=== PATIENT | female | born 1940 | race Caucasian/White ===

== ENCOUNTER 2016-12-05 14:15 | Inpatient (IN) | payer MEDICARE, MEDICAID ==
[~2016-12-05] VITALS: Ht 167.6 cm; Wt 75.3 kg
[~2016-12-05 14:15] MED LIST: AMBIEN10 MG PO; AMBIEN5 MG ORAL; ASPIRIN325 MG PO; ASPIRIN81 MG ORAL; CLONIDINE0.1 MG ORAL; COREG6.25 MG ORAL; DURAGESIC1 E1 TD; FLAGYL500 MG PO; GABAPENTIN300 MG PO; GABAPENTIN600 MG PO; IBUPROFEN800 MG PO; IMODIUM2 MG ORAL; LEVAQUIN500 MG ORAL; LIDODERM700 M1 TP; LIPITOR80 MG ORAL; MACRODANTIN25 MG PO; MOTRIN400 MG PO; NORVASC5 MG ORAL; TRAMADOL HCL50 MG PO; TRIAMTERENE-HC1 EAC7 PO
[2016-12-05 14:24] VITALS: BP 89/57
--- NOTE | 2016-12-05 14:28 | Emergency Room Report ---
History of Present Illness General Chief Complaint: Multiple Trauma/Fall Source: Medical Record, EMS Present Illness HPI Patient is s a 76-year-old female who presented after increased bilateral knee pain as well as low back pain after a fall. Patient probably had a prior history of chronic pain. 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 Patient was having difficulty ambulating after her fall. Patient states she normally takes [place] for pain. She intermittently takes ibuprofen. She denied any numbness or weakness. Allergies: Coded Allergies: MORPHINE (Verified Allergy, Severe, Hives, 10/12/12) HIVES Patient History Past Medical History: see triage record, AFib Past Surgical History: pacemaker Last Menstrual Period: UNK Reviewed Nursing Documentation: PMH: Agreed, PSxH: Agreed Nursing Documentation-PMH Past Medical History: No History, Except For Hx Cardiac Problems: Yes - afib Hx Hypertension: Yes Hx Asthma: Yes Hx COPD: Yes Hx Cancer: No Hx Gastrointestinal Problems: No History Of Psychiatric Problem: Yes Hx Neurological Problems: Yes - h/o of aloc in 2010 Hx Dementia: Yes Hx Alzheimer's Disease: Yes Review of Systems All Other Systems: negative except mentioned in HPI Physical Exam Vital Signs Date Time Temp Pulse Resp B/P Pulse Ox O2 Delivery O2 Flow Rate FiO2 12/05/16 14:13 97.7 95 14 77/45 95 Room Air Sp02 EP Interpretation: reviewed, normal General Appearance: normal inspection, well appearing, no apparent distress, alert, GCS 15, obese, Chronically Ill Head: atraumatic ENT: normal ENT inspection, hearing grossly normal, normal voice Neck: normal inspection, full range of motion, supple, no bony tend Respiratory: normal inspection, lungs clear, normal breath sounds, no respiratory distress, no retraction, no wheezing Cardiovascular #1: regular rate, rhythm, no edema Gastrointestinal: normal inspection, normal bowel sounds, non tender, soft, no guarding, no hernia Genitourinary: no CVA tenderness Musculoskeletal: normal inspection, back normal, decreased range of motion Neurologic: normal inspection, alert, oriented x3, responsive, speech normal Psychiatric: normal inspection, judgement/insight normal, mood/affect normal Skin: normal inspection, normal color, no rash Medical Decision Making Diagnostic Impression: Primary Impression: Recurrent falls Additional Impressions: Atrial fibrillation with RVR Low back pain ER Course Patient presented after a fall. Differential diagnosis included was not limited to neck fracture, CVA, close head injury, syncopal episode, basilar ischemia Labs Test 12/05/16 16:58 12/05/16 17:00 White Blood Count 11.5 K/UL (4.8-10.8) Red Blood Count 6.10 M/UL (4.20-5.40) Hemoglobin 14.8 G/DL (12.0-16.0) Hematocrit 47.9 % (37.0-47.0) Mean Corpuscular Volume 79 FL (80-99) Mean Corpuscular Hemoglobin 24.3 PG (27.0-31.0) Mean Corpuscular Hemoglobin Concent 30.9 G/DL (32.0-36.0) Red Cell Distribution Width 14.6 % (11.6-14.8) Platelet Count 75 K/UL (150-450) Mean Platelet Volume 10.8 FL (6.5-10.1) Neutrophils (%) (Auto) % (45.0-75.0) Lymphocytes (%) (Auto) % (20.0-45.0) Monocytes (%) (Auto) % (1.0-10.0) Eosinophils (%) (Auto) % (0.0-3.0) Basophils (%) (Auto) % (0.0-2.0) Differential Total Cells Counted 100 Neutrophils % (Manual) 77 % (45-75) Lymphocytes % (Manual) 12 % (20-45) Monocytes % (Manual) 5 % (1-10) Eosinophils % (Manual) 3 % (0-3) Basophils % (Manual) 1 % (0-2) Band Neutrophils 2 % (0-8) Platelet Estimate Decreased Platelet Morphology Clumped Platelets 1+ Anisocytosis 1+ Prothrombin Time 10.2 SEC (9.30-11.50) Prothromb Time International Ratio 1.0 (0.9-1.1) Activated Partial Thromboplast Time 31 SEC (23-33) Sodium Level 133 mEQ/L (135-145) Potassium Level 5.7 mEQ/L (3.4-4.9) Chloride Level 94 mEQ/L (98-107) Carbon Dioxide Level 27 mEQ/L (20-30) Anion Gap 12 (5-15) Blood Urea Nitrogen 33 mg/dL (7-23) Creatinine 0.9 mg/dL (0.5-0.9) Estimat Glomerular Filtration Rate mL/min (>60) Glucose Level 100 mg/dL (74-106) Lactic Acid Level 1.00 mmol/L (0.66-2.22) Calcium Level 10.0 mg/dL (8.6-10.2) Total Bilirubin 0.5 mg/dL (0.0-1.2) Aspartate Amino Transf (AST/SGOT) 28 U/L (5-40) Alanine Aminotransferase (ALT/SGPT) 18 U/L (3-33) Alkaline Phosphatase 99 U/L (35-104) Total Creatine Kinase 427 U/L (26-140) Creatine Kinase MB 4.5 ng/mL (< 3.8) Creatine Kinase MB Relative Index 1.0 Troponin I < 0.30 ng/mL (<=0.30) Pro-B-Type Natriuretic Peptide 2034 pg/mL (0-450) Total Protein 8.5 g/dL (6.6-8.7) Albumin 4.5 g/dL (3.5-5.2) Globulin 4.0 g/dL Albumin/Globulin Ratio 1.1 (1.0-2.7) Urine Color Pale yellow Urine Appearance Clear Urine pH 8 (4.5-8.0) Urine Specific [place] 1.010 (1.005-1.035) Urine Protein Negative (NEGATIVE) Urine Glucose (UA) Negative (NEGATIVE) Urine Ketones Negative (NEGATIVE) Urine Occult Blood Negative (NEGATIVE) Urine Nitrite Negative (NEGATIVE) Urine Bilirubin Negative (NEGATIVE) Urine Urobilinogen Normal MG/DL (0.0-1.0) Urine Leukocyte Esterase 1+ (NEGATIVE) Urine RBC 0-2 /HPF (0 - 2) Urine WBC 2-4 /HPF (0 - 2) Urine Squamous Epithelial Cells Few /LPF (NONE/OCC) Urine Bacteria Few /HPF (NONE) EKG Diagnostic Results Rate: tachycardiac Rhythm: other - afib ST Segments: no acute changes Last Vital Signs Date Time Temp Pulse Resp B/P Pulse Ox O2 Delivery O2 Flow Rate FiO2 12/05/16 14:24 97.7 128 19 89/57 97 Room Air Status: unchanged Disposition: ADMITTED INPATIENT Condition: Serious Yousuf Brandt Dec 05, 2016 14:28
[2016-12-05] MEDS ORDERED: Norco 5mg/325mg tab ORAL ONE ×2 (14:30→17:30)
[2016-12-05] MEDS ORDERED: DICLOFENAC SODI25 MG ORAL (15:46)
[2016-12-05] MEDS ORDERED: ZANAFLEX4 MG ORAL (15:46)
[2016-12-05] MEDS ORDERED: ALBUTEROL SULF8.5 GM INH (15:46)
[2016-12-05] MEDS ORDERED: XANAX0.25 MG ORAL (15:46)
[2016-12-05] MEDS ORDERED: Digoxin 0.5mg/2ml Inj IVP ONE (16:30)
[2016-12-05 16:38] VITALS: BP 104/55
[2016-12-05 17:18] LABS: MEAN CORPUSCULAR HEMOGLOBIN 24.3 PG (27.0-31.0); MEAN CORPUSCULAR HGB CONC 30.9 G/DL (32.0-36.0); MEAN CORPUSCULAR VOLUME 79 FL (80-99); MEAN PLATELET VOLUME 10.8 FL (6.5-10.1); PLATELET COUNT 75 K/UL (150-450); RED CELL DISTRIBUTION WIDTH 14.6 % (11.6-14.8); WHITE BLOOD COUNT 11.5 K/UL (4.8-10.8)
[2016-12-05 17:20] LABS: APPEARANCE,URINE CLEAR; KETONES,URINE NEGATIVE (NEGATIVE); LEUKOCYTE ESTERASE ,URINE 1+ (NEGATIVE); NITRITE,URINE NEGATIVE (NEGATIVE); PH,URINE 8 (4.5-8.0); PROTEIN,URINE NEGATIVE (NEGATIVE); UROBILINOGEN,URINE NORMAL MG/DL (0.0-1.0)
[2016-12-05 17:25] LABS: PROTHROMBIN TIME 10.2 SEC (9.30-11.50)
[2016-12-05] MEDS ORDERED: Diltiazem 25mg/5ml IV ONE (17:30)
[2016-12-05 17:36] LABS: BACTERIA,URINE FEW /HPF; RBC,URINE 0-2 /HPF (0 - 2); SQUAMOUS EPITHELIAL CELL,UR FEW /LPF (NONE/OCC)
[2016-12-05 17:41] LABS: TROPONIN I < 0.30 ng/mL (<=0.30)
[2016-12-05 17:43] LABS: ALANINE AMINOTRANSFERASE 18 U/L (3-33); ALBUMIN/GLOBULIN RATIO 1.1 (1.0-2.7); ANION GAP 12 (5-15); ASPARTATE AMINO TRANSFERASE 28 U/L (5-40); CARBON DIOXIDE 27 mEQ/L (20-30); CHLORIDE 94 mEQ/L (98-107); CREATININE 0.9 mg/dL (0.5-0.9); HEMOLYSIS 4; POTASSIUM 5.7 mEQ/L (3.4-4.9); SODIUM 133 mEQ/L (135-145); TOTAL PROTEIN 8.5 g/dL (6.6-8.7)
[2016-12-05 18:04] LABS: CKMB 4.5 ng/mL (< 3.8)
[2016-12-05 18:07] LABS: ANISOCYTOSIS 1+; BAND NEUTROPHILS % (MANUAL) 2 % (0-8); BASOPHILS % (MANUAL) 1 % (0-2); EOSINOPHILS % (MANUAL) 3 % (0-3); LYMPHOCYTES % (MANUAL) 12 % (20-45); NEUTROPHILS % (MANUAL) 77 % (45-75); TOTAL CELLS COUNTED 100
[2016-12-05 18:08] LABS: PLATELET CLUMPS 1+; PLATELET ESTIMATE DECREASED
[2016-12-05] MEDS ORDERED: Sodium Polystyrene Sulfonate 15gm Powder ORAL ONE (18:15)
[2016-12-05 18:45] VITALS: BP 139/88
[2016-12-05 19:00] VITALS: BP 139/88
[2016-12-05 20:30] VITALS: BP 139/88
[2016-12-05] MEDS ORDERED: Nitroglycerin Subl 0.4mg tab (Bottle Of 25) SL PRN (20:45)
[2016-12-05] MEDS ORDERED: LORazepam Inj 2mg/ml 1ml IV PRN (20:45)
[2016-12-05] MEDS ORDERED: Miralax 17gm pkt ORAL PRN (20:45)
[2016-12-05] MEDS ORDERED: DuoNeb 0.5-3(2.5)mg/3ml neb HHN PRN (20:45)
[2016-12-05] MEDS ORDERED: Mylanta II UD 30ml ORAL PRN (20:45)
[2016-12-05] MEDS ORDERED: Carvedilol 6.25mg Tab ORAL SCH (21:00)
[2016-12-05] MEDS ORDERED: Heparin 5000 units/ml inj SUBQ SCH (21:00)
[2016-12-05 21:11] VITALS: BP 84/46
[2016-12-06] VITALS (7 sets, daily range): BP systolic 73–119; BP diastolic 42–58
[2016-12-06 05:09] LABS: EOSINOPHILS % (AUTO) 4.2 % (0.0-3.0); LYMPHOCYTES % (AUTO) 16.7 % (20.0-45.0); MEAN CORPUSCULAR HEMOGLOBIN 24.8 PG (27.0-31.0); MEAN CORPUSCULAR HGB CONC 31.5 G/DL (32.0-36.0); MEAN CORPUSCULAR VOLUME 79 FL (80-99); MEAN PLATELET VOLUME 14.2 FL (6.5-10.1); MONOCYTES % (AUTO) 7.5 % (1.0-10.0); NEUTROPHILS % (AUTO) 69.6 % (45.0-75.0); PLATELET COUNT 105 K/UL (150-450); RED BLOOD COUNT 5.19 M/UL (4.20-5.40); RED CELL DISTRIBUTION WIDTH 14.6 % (11.6-14.8); WHITE BLOOD COUNT 8.6 K/UL (4.8-10.8)
[2016-12-06 05:16] LABS: PROTHROMBIN TIME 10.5 SEC (9.30-11.50)
[2016-12-06 05:26] LABS: ALANINE AMINOTRANSFERASE 13 U/L (3-33); ANION GAP 11 (5-15); ASPARTATE AMINO TRANSFERASE 19 U/L (5-40); CALCIUM 8.9 mg/dL (8.6-10.2); CARBON DIOXIDE 25 mEQ/L (20-30); CHLORIDE 98 mEQ/L (98-107); CHOLESTEROL 141 mg/dL (< 200); CHOLESTEROL/HDL RATIO 5.6 (3.3-4.4); CREATININE 0.6 mg/dL (0.5-0.9); HEMOLYSIS 4; LDL CHOLESTEROL (CALC.) 91 mg/dL (60-99); POTASSIUM 5.1 mEQ/L (3.4-4.9); SODIUM 134 mEQ/L (135-145); TOTAL PROTEIN 6.6 g/dL (6.6-8.7)
[2016-12-06] MEDS: Carvedilol 6.25mg Tab ORAL SCH ×2 (09:00→22:29)
[2016-12-06] MEDS: Aspirin Baby 81mg ORAL SCH (10:04)
--- NOTE | 2016-12-06 12:05 | Diagnostic Imaging Report ---
Indications: Left knee pain Technique: 3 views left knee. Findings: Comparison: None Suprapatellar bursa is distended and increased attenuation. No fracture, dislocation, joint space widening , lytic destruction, periosteal reaction , surrounding soft tissue swelling/foreign body/gas, or other acute changes are identified. Patellofemoral and knee joint space is narrowed with marginal osteophyte formation. Small osseous densities adjacent to medial femoral condyle/epicondyle IMPRESSION: Suprapatellar effusion, nonspecific. If in the setting of trauma, internal derangement cannot be excluded. Also, it is uncertain whether this image was shot as crosstable lateral. If not, likely hemarthrosis in the setting of radiographically occult acute fracture cannot be excluded. No other evidence of acute abnormality Degenerative spondylosis Derrell-Stieda lesion.
--- NOTE | 2016-12-06 12:07 | Diagnostic Imaging Report ---
Indications: Right knee pain Technique: 3 views right knee. Findings: Comparison: None No fracture, dislocation, joint space widening or effusion, lytic destruction, periosteal reaction , surrounding soft tissue swelling/foreign body/gas, or other acute changes are identified. Patellofemoral and knee joint space is narrowed with marginal osteophyte formation. IMPRESSION: No evidence of acute abnormality Degenerative arthropathy.
--- NOTE | 2016-12-06 12:07 | Diagnostic Imaging Report ---
Indications: Abdominal pain Technique: Continuous helical CT imaging of the abdomen and pelvis was performed with automatic exposure control on a Siemens sensation [address] scanner. Axial, coronal, sagittal images reconstructed at 3 mm slice thickness. No oral or IV contrast was administered per requesting physician's order, despite no contraindications listed. CTDI volume(s): 19 mGy Total DLP: 1018 mGy-cm Findings: Comparison: None Lack of oral and IV contrast limits evaluation. Gastrointestinal tract nondilated throughout. Left colonic diverticula. No obvious mural thickening, adjacent stranding, extraluminal gas or fluid collections. Uterus and ovaries not identified. Scattered arterial mural calcifications. Vascular patency indeterminate. Unenhanced liver, gallbladder, pancreas, spleen, adrenal glands, kidneys, nondistended ureters, and urinary bladder retroperitoneum, mesentery, remainder visualized abdominopelvic anatomy demonstrates no obvious acute abnormality. Linear and patchy consolidative opacities in the dependent portions both lung bases. Heart enlarged with right chamber pacemaker leads. Disc marginal osteophytes in lumbar, lower thoracic spine. Impression: No evidence of acute abdominopelvic disease, with limitation as described. Subtle but potentially significant abnormalities may be missed. Repeat CT scan with full oral and IV contrast preparation recommended for more complete evaluation, as clinically indicated Colonic diverticulosis Arteriosclerosis Previous hysterectomy Pulmonary bibasal atelectasis and/or pneumonia Cardiomegaly with pacemaker leads Degenerative spondylosis This correlates with [facility] preliminary report.
--- NOTE | 2016-12-06 12:08 | Diagnostic Imaging Report ---
Indications: Shortness of breath Technique: Portable AP chest Findings: Comparison: 06/27/2015 Left lung volume remains mildly decreased compared to right. Linear densities persist in left midlung, right base. No new pulmonary parenchymal abnormalities are demonstrated. No pleural disease is evident. Cardiac silhouette remains enlarged. Pulmonary vasculature remains within normal limits. Aortic arch calcification, lower cervical fusion hardware again noted. Left chest wall pacemaker has been placed. IMPRESSION: No evidence of acute cardio pulmonary disease, unchanged Interval placement of pacemaker Stable chronic changes as described
--- NOTE | 2016-12-06 12:31 | History and Physical ---
History of Present Illness General Date patient seen: Dec 06, 2016 Reason for Hospitalization: Multiple Trauma/Fall Present Illness HPI 76-year-old female with hx of pacemaker, afib, COPD, osteoarthritis, depression , who presented after increased bilateral knee pain as well as low back pain after a fall. She was having difficulty ambulating after her fall. Patient states she normally takes [place] for pain. She intermittently takes ibuprofen. She denied any numbness or weakness. She was found to be in rapid afib with borderline low BP, and hyperkalemia. She is admitted to [facility] for further evaluation. Allergies: Coded Allergies: MORPHINE (Verified Allergy, Severe, Hives, 10/12/12) HIVES Medication History Scheduled Albuterol Sulfate* (Albuterol Sulfate Mdi*), 2 PUFF INH Q4H, (Reported) Amlodipine Besylate (Norvasc), 5 MG ORAL BID Aspirin* (Aspirin*), 81 MG ORAL DAILY, (Reported) Atorvastatin (Lipitor), 80 MG ORAL BEDTIME Carvedilol (Coreg), 6.25 MG ORAL EVERY 12 HOURS Clonidine HCl (Clonidine HCl), 0.1 MG ORAL BID, (Reported) Fentanyl (Fentanyl), 1 EA TD Q72H, (Reported) Gabapentin* (Gabapentin*), 300 MG PO QHS, (Reported) Levofloxacin* (Levaquin*), 500 MG ORAL DAILY, (Reported) Loperamide HCl (Loperamide), 2 MG ORAL Q4H, (Reported) Metronidazole* (Flagyl*), 500 MG PO TID, (Reported) Tramadol Hcl* (Ultram*), 50 MG PO Q6H, (Reported) Triamterene/Hydrochlorothiazid (Triamterene-Hctz 37.5-25 Mg Cp), 1 EACH PO DAILY , (Reported) Zolpidem Tartrate* (Ambien*), 5 MG ORAL BEDTIME, (Reported) Scheduled PRN Alprazolam* (Xanax*), MG ORAL for For Anxiety, (Reported) Diclofenac Sod* (Voltaren*), MG ORAL THREE TIMES A DAY PRN for For Pain, ( Reported) Gabapentin* (Gabapentin*), 600 MG PO TID PRN for For Pain, (Reported) Ibuprofen* (Motrin*), 400 MG PO TID PRN for For Pain, (Reported) Tizanidine Hcl (Zanaflex*), 4 MG ORAL for For Pain, (Reported) Miscellaneous Medications Lidocaine (Lidoderm), 700 MG TP, (Reported) Patient History Healthcare decision maker Patient Resuscitation status Full Code Advanced Directive on File No Past Medical/Surgical History Past Medical/Surgical History: (1) Pacemaker (2) Atrial fibrillation (3) Recurrent falls Review of Systems All Other Systems: negative except mentioned in HPI Physical Exam General Appearance: WD/WN, no apparent distress Lines, tubes and drains: peripheral HEENT: normocephalic, atraumatic Neck: non-tender, normal alignment Respiratory/Chest: chest wall non-tender, normal breath sounds Breasts: no masses Cardiovascular/Chest: normal peripheral pulses Abdomen: normal bowel sounds Genitourinary/Rectal: normal genital exam Extremities: normal range of motion, non-tender Neurologic: no motor/sensory deficits Last 24 Hour Vital Signs Date Time Temp Pulse Resp B/P Pulse Ox O2 Delivery O2 Flow Rate FiO2 12/06/16 11:57 98.6 89 20 103/57 98 12/06/16 09:00 89 83/53 12/06/16 09:00 89 83/53 12/06/16 08:00 97.3 89 18 83/53 98 Nasal Cannula 12/06/16 04:00 77 12/06/16 04:00 97.2 66 16 73/42 97 Nasal Cannula 12/06/16 00:00 72 12/05/16 21:11 98.1 90 16 84/46 97 Nasal Cannula 12/05/16 21:00 63 101/55 12/05/16 20:48 81 12/05/16 20:30 97.7 110 14 105/50 96 Room Air 110 12/05/16 20:30 97.7 110 14 139/88 96 Room Air 110 12/05/16 19:03 97.7 12/05/16 19:00 97.7 110 14 139/88 96 Room Air 12/05/16 18:45 97.7 110 14 139/88 96 Room Air 12/05/16 17:41 120 132/83 12/05/16 17:09 128 12/05/16 17:04 97.7 12/05/16 16:38 97.7 127 14 104/55 100 Room Air 12/05/16 14:24 97.7 128 19 89/57 97 Room Air 12/05/16 14:13 97.7 95 14 77/45 95 Room Air Intake and Output 12/05/16 12/06/16 19:00 07:00 Intake Total 480 ml Output Total 400 ml Balance 80 ml Intake Oral 480 ml Output Urine Total 400 ml Laboratory Tests Test 12/05/16 16:58 12/05/16 17:00 12/06/16 04:05 White Blood Count 11.5 K/UL (4.8-10.8) H 8.6 K/UL (4.8-10.8) Red Blood Count 6.10 M/UL (4.20-5.40) H 5.19 M/UL (4.20-5.40) Hemoglobin 14.8 G/DL (12.0-16.0) 12.9 G/DL (12.0-16.0) Hematocrit 47.9 % (37.0-47.0) H 40.8 % (37.0-47.0) Mean Corpuscular Volume 79 FL (80-99) L 79 FL (80-99) L Mean Corpuscular Hemoglobin 24.3 PG (27.0-31.0) L 24.8 PG (27.0-31.0) L Mean Corpuscular Hemoglobin Concent 30.9 G/DL (32.0-36.0) L 31.5 G/DL (32.0-36.0) L Red Cell Distribution Width 14.6 % (11.6-14.8) 14.6 % (11.6-14.8) Platelet Count 75 K/UL (150-450) L 105 K/UL (150-450) L Mean Platelet Volume 10.8 FL (6.5-10.1) H 14.2 FL (6.5-10.1) H Neutrophils (%) (Auto) % (45.0-75.0) 69.6 % (45.0-75.0) Lymphocytes (%) (Auto) % (20.0-45.0) 16.7 % (20.0-45.0) L Monocytes (%) (Auto) % (1.0-10.0) 7.5 % (1.0-10.0) Eosinophils (%) (Auto) % (0.0-3.0) 4.2 % (0.0-3.0) H Basophils (%) (Auto) % (0.0-2.0) 2.0 % (0.0-2.0) Differential Total Cells Counted 100 Neutrophils % (Manual) 77 % (45-75) H Lymphocytes % (Manual) 12 % (20-45) L Monocytes % (Manual) 5 % (1-10) Eosinophils % (Manual) 3 % (0-3) Basophils % (Manual) 1 % (0-2) Band Neutrophils 2 % (0-8) Platelet Estimate Decreased L Platelet Morphology Clumped Platelets 1+ Anisocytosis 1+ Prothrombin Time 10.2 SEC (9.30-11.50) 10.5 SEC (9.30-11.50) Prothromb Time International Ratio 1.0 (0.9-1.1) 1.0 (0.9-1.1) Activated Partial Thromboplast Time 31 SEC (23-33) 32 SEC (23-33) Sodium Level 133 mEQ/L (135-145) L 134 mEQ/L (135-145) L Potassium Level 5.7 mEQ/L (3.4-4.9) H 5.1 mEQ/L (3.4-4.9) H Chloride Level 94 mEQ/L (98-107) L 98 mEQ/L (98-107) Carbon Dioxide Level 27 mEQ/L (20-30) 25 mEQ/L (20-30) Anion Gap 12 (5-15) 11 (5-15) Blood Urea Nitrogen 33 mg/dL (7-23) H 24 mg/dL (7-23) H Creatinine 0.9 mg/dL (0.5-0.9) 0.6 mg/dL (0.5-0.9) Estimat Glomerular Filtration Rate mL/min (>60) mL/min (>60) Glucose Level 100 mg/dL (74-106) 110 mg/dL (74-106) H Lactic Acid Level 1.00 mmol/L (0.66-2.22) Calcium Level 10.0 mg/dL (8.6-10.2) 8.9 mg/dL (8.6-10.2) Total Bilirubin 0.5 mg/dL (0.0-1.2) 0.5 mg/dL (0.0-1.2) Aspartate Amino Transf (AST/SGOT) 28 U/L (5-40) 19 U/L (5-40) Alanine Aminotransferase (ALT/SGPT) 18 U/L (3-33) 13 U/L (3-33) Alkaline Phosphatase 99 U/L (35-104) 78 U/L (35-104) Total Creatine Kinase 427 U/L (26-140) H Creatine Kinase MB 4.5 ng/mL (< 3.8) H Creatine Kinase MB Relative Index 1.0 Troponin I < 0.30 ng/mL (<=0.30) Pro-B-Type Natriuretic Peptide 2034 pg/mL (0-450) H Total Protein 8.5 g/dL (6.6-8.7) 6.6 g/dL (6.6-8.7) Albumin 4.5 g/dL (3.5-5.2) 3.4 g/dL (3.5-5.2) L Globulin 4.0 g/dL 3.2 g/dL Albumin/Globulin Ratio 1.1 (1.0-2.7) 1.0 (1.0-2.7) Urine Color Pale yellow Urine Appearance Clear Urine pH 8 (4.5-8.0) Urine Specific [place] 1.010 (1.005-1.035) Urine Protein Negative (NEGATIVE) Urine Glucose (UA) Negative (NEGATIVE) Urine Ketones Negative (NEGATIVE) Urine Occult Blood Negative (NEGATIVE) Urine Nitrite Negative (NEGATIVE) Urine Bilirubin Negative (NEGATIVE) Urine Urobilinogen Normal MG/DL (0.0-1.0) Urine Leukocyte Esterase 1+ (NEGATIVE) H Urine RBC 0-2 /HPF (0 - 2) Urine WBC 2-4 /HPF (0 - 2) Urine Squamous Epithelial Cells Few /LPF (NONE/OCC) Urine Bacteria Few /HPF (NONE) Triglycerides Level 124 mg/dL (< 150) Cholesterol Level 141 mg/dL (< 200) LDL Cholesterol 91 mg/dL (60-99) HDL Cholesterol 25 mg/dL (> 60) Cholesterol/HDL Ratio 5.6 (3.3-4.4) H Thyroid Stimulating Hormone (TSH) 1.020 uIU/mL (0.300-4.500) Height (Feet): 5 Height (Inches): 6.00 Weight (Pounds): 166 Medications Current Medications Medications (Trade) Dose Ordered Sig/Sarmad Route PRN Reason Start Time Stop Time Status Last Admin Dose Admin Acetaminophen (Tylenol) 650 mg Q4H PRN ORAL fever 12/05/16 20:45 01/04/17 20:44 Al Hydroxide/Mg Hydroxide (Mylanta II) 30 ml Q6H PRN ORAL dyspepsia 12/05/16 20:45 01/04/17 20:44 Albuterol/ Ipratropium (DuoNeb 0.5-3(2.5)mg/3ml) 3 ml Q4H PRN HHN Shortness of Breath 12/05/16 20:45 12/10/16 20:44 Amlodipine Besylate (Norvasc) 5 mg BID ORAL 12/06/16 09:00 01/05/17 08:59 Aspirin (ASA) 81 mg DAILY ORAL 12/06/16 09:00 01/05/17 08:59 12/06/16 10:04 Carvedilol (Coreg) 6.25 mg EVERY 12 HOURS ORAL 12/06/16 09:00 01/05/17 08:59 Clonidine HCl (Catapres) 0.1 mg Q4H PRN ORAL SBP > 160 12/05/16 20:45 01/04/17 20:44 Dextrose (Dextrose 50%) STAT PRN IV Hypoglycemia 12/05/16 20:45 01/04/17 20:44 Gabapentin (Neurontin) 300 mg QHS ORAL 12/05/16 21:00 01/04/17 20:59 12/05/16 22:29 Lidocaine (Lidoderm 5% PATCH) 1 patch DAILY TDERMAL 12/06/16 12:00 01/05/17 11:59 12/06/16 11:13 Lorazepam (Ativan 2mg/ml 1ml) 0.5 mg Q4H PRN IV For Anxiety 12/05/16 20:45 12/12/16 20:44 12/06/16 06:48 Nitroglycerin (Ntg) 0.4 mg Q5M X 3 DOSES PRN SL Prn Chest Pain 12/05/16 20:45 01/04/17 20:44 Ondansetron HCl (Zofran) 4 mg Q6H PRN IVP Nausea & Vomiting 12/05/16 20:45 01/04/17 20:44 Polyethylene Glycol (Miralax) 17 gm HSPRN PRN ORAL Constipation 12/05/16 20:45 01/04/17 20:44 Temazepam (Restoril) 15 mg HSPRN PRN ORAL Insomnia 12/05/16 20:45 12/12/16 20:44 Tizanidine HCl (Zanaflex) 4 mg DAILYPRN PRN ORAL For Pain 12/05/16 20:45 01/04/17 20:44 12/05/16 22:31 Assessment/Plan Problem List: (1) Atrial fibrillation with RVR ICD Codes: I48.91 - Unspecified atrial fibrillation SNOMED: 583434269198268 (2) ATN (acute tubular necrosis) ICD Codes: N17.0 - Acute kidney failure with tubular necrosis SNOMED: 95225049 (3) Hyperkalemia ICD Codes: E87.5 - Hyperkalemia SNOMED: 49021187 (4) Multiple injuries due to trauma ICD Codes: T07 - Unspecified multiple injuries SNOMED: 719598626 (5) Low back pain ICD Codes: M54.5 - Low back pain SNOMED: 530462532 (6) Pacemaker ICD Codes: Z95.0 - Presence of cardiac pacemaker SNOMED: 793856519, 809847298 Assessment/Plan ANA monitoring control heart rate echo cardiogram treat hyperkalemia IV fluids pt/ot renal evaluation NIKO HARVEY Dec 06, 2016 12:31
[2016-12-06] MEDS: Norco 5mg/325mg tab ORAL PRN ×2 (13:03→23:07)
--- NOTE | 2016-12-06 13:50 | Neurology Progress Note ---
Objective Physical Exam Last Vital Signs Date Time Temp Pulse Resp B/P Pulse Ox O2 Delivery O2 Flow Rate FiO2 12/06/16 11:57 98.6 89 20 103/57 98 12/06/16 08:00 Nasal Cannula Laboratory Tests Test 12/05/16 16:58 12/05/16 17:00 12/06/16 04:05 White Blood Count 11.5 K/UL (4.8-10.8) H 8.6 K/UL (4.8-10.8) Red Blood Count 6.10 M/UL (4.20-5.40) H 5.19 M/UL (4.20-5.40) Hemoglobin 14.8 G/DL (12.0-16.0) 12.9 G/DL (12.0-16.0) Hematocrit 47.9 % (37.0-47.0) H 40.8 % (37.0-47.0) Mean Corpuscular Volume 79 FL (80-99) L 79 FL (80-99) L Mean Corpuscular Hemoglobin 24.3 PG (27.0-31.0) L 24.8 PG (27.0-31.0) L Mean Corpuscular Hemoglobin Concent 30.9 G/DL (32.0-36.0) L 31.5 G/DL (32.0-36.0) L Red Cell Distribution Width 14.6 % (11.6-14.8) 14.6 % (11.6-14.8) Platelet Count 75 K/UL (150-450) L 105 K/UL (150-450) L Mean Platelet Volume 10.8 FL (6.5-10.1) H 14.2 FL (6.5-10.1) H Neutrophils (%) (Auto) % (45.0-75.0) 69.6 % (45.0-75.0) Lymphocytes (%) (Auto) % (20.0-45.0) 16.7 % (20.0-45.0) L Monocytes (%) (Auto) % (1.0-10.0) 7.5 % (1.0-10.0) Eosinophils (%) (Auto) % (0.0-3.0) 4.2 % (0.0-3.0) H Basophils (%) (Auto) % (0.0-2.0) 2.0 % (0.0-2.0) Differential Total Cells Counted 100 Neutrophils % (Manual) 77 % (45-75) H Lymphocytes % (Manual) 12 % (20-45) L Monocytes % (Manual) 5 % (1-10) Eosinophils % (Manual) 3 % (0-3) Basophils % (Manual) 1 % (0-2) Band Neutrophils 2 % (0-8) Platelet Estimate Decreased L Platelet Morphology Clumped Platelets 1+ Anisocytosis 1+ Prothrombin Time 10.2 SEC (9.30-11.50) 10.5 SEC (9.30-11.50) Prothromb Time International Ratio 1.0 (0.9-1.1) 1.0 (0.9-1.1) Activated Partial Thromboplast Time 31 SEC (23-33) 32 SEC (23-33) Sodium Level 133 mEQ/L (135-145) L 134 mEQ/L (135-145) L Potassium Level 5.7 mEQ/L (3.4-4.9) H 5.1 mEQ/L (3.4-4.9) H Chloride Level 94 mEQ/L (98-107) L 98 mEQ/L (98-107) Carbon Dioxide Level 27 mEQ/L (20-30) 25 mEQ/L (20-30) Anion Gap 12 (5-15) 11 (5-15) Blood Urea Nitrogen 33 mg/dL (7-23) H 24 mg/dL (7-23) H Creatinine 0.9 mg/dL (0.5-0.9) 0.6 mg/dL (0.5-0.9) Estimat Glomerular Filtration Rate mL/min (>60) mL/min (>60) Glucose Level 100 mg/dL (74-106) 110 mg/dL (74-106) H Lactic Acid Level 1.00 mmol/L (0.66-2.22) Calcium Level 10.0 mg/dL (8.6-10.2) 8.9 mg/dL (8.6-10.2) Total Bilirubin 0.5 mg/dL (0.0-1.2) 0.5 mg/dL (0.0-1.2) Aspartate Amino Transf (AST/SGOT) 28 U/L (5-40) 19 U/L (5-40) Alanine Aminotransferase (ALT/SGPT) 18 U/L (3-33) 13 U/L (3-33) Alkaline Phosphatase 99 U/L (35-104) 78 U/L (35-104) Total Creatine Kinase 427 U/L (26-140) H Creatine Kinase MB 4.5 ng/mL (< 3.8) H Creatine Kinase MB Relative Index 1.0 Troponin I < 0.30 ng/mL (<=0.30) Pro-B-Type Natriuretic Peptide 2034 pg/mL (0-450) H Total Protein 8.5 g/dL (6.6-8.7) 6.6 g/dL (6.6-8.7) Albumin 4.5 g/dL (3.5-5.2) 3.4 g/dL (3.5-5.2) L Globulin 4.0 g/dL 3.2 g/dL Albumin/Globulin Ratio 1.1 (1.0-2.7) 1.0 (1.0-2.7) Urine Color Pale yellow Urine Appearance Clear Urine pH 8 (4.5-8.0) Urine Specific [place] 1.010 (1.005-1.035) Urine Protein Negative (NEGATIVE) Urine Glucose (UA) Negative (NEGATIVE) Urine Ketones Negative (NEGATIVE) Urine Occult Blood Negative (NEGATIVE) Urine Nitrite Negative (NEGATIVE) Urine Bilirubin Negative (NEGATIVE) Urine Urobilinogen Normal MG/DL (0.0-1.0) Urine Leukocyte Esterase 1+ (NEGATIVE) H Urine RBC 0-2 /HPF (0 - 2) Urine WBC 2-4 /HPF (0 - 2) Urine Squamous Epithelial Cells Few /LPF (NONE/OCC) Urine Bacteria Few /HPF (NONE) Triglycerides Level 124 mg/dL (< 150) Cholesterol Level 141 mg/dL (< 200) LDL Cholesterol 91 mg/dL (60-99) HDL Cholesterol 25 mg/dL (> 60) Cholesterol/HDL Ratio 5.6 (3.3-4.4) H Thyroid Stimulating Hormone (TSH) 1.020 uIU/mL (0.300-4.500) Impression/Recommendations Recommendations # [id number] LIVIA HOUSER Dec 06, 2016 13:50
--- NOTE | 2016-12-06 14:07 | Wound Care Consultation ---
Wound Assessment Wound Assessment #1: Wound Number: #1 Wound Present on Admission: Yes New Wound: No Status Change of Wound: No Wound Location Body Site Modif: left, lower Wound Location Body Site: leg Wound Type: discoloration Nikkie Test: Does not Nikkie Other Colors Identified: green, purple, red Wound Drainage Amount: None Wound Drainage Odor: None/Absent Tissue Surrounding Wound: Intact Wound Assessment #2: Wound Number: #2 Wound Present on Admission: Yes New Wound: No Status Change of Wound: No Wound Location Body Site Modif: left Wound Location Body Site: toe - 4th and 5th toe extending to plantar. Wound Type: discoloration Nikkie Test: Does not Nikkie Other Colors Identified: purple,red Wound Drainage Amount: None Wound Drainage Odor: None/Absent Tissue Surrounding Wound: Intact Wound Assessment #3: Wound Number: #3 Wound Present on Admission: Yes New Wound: No Status Change of Wound: No Wound Location Body Site Modif: right, lateral Wound Location Body Site: thigh Wound Type: traumatic injury Nikkie Test: Does not Nikkie Wound Thickness: Full Thickness Wound Length: 2.0 Wound Width: 1.0 Wound Depth: utd Percent of Wound [place]/Red: 10 Percent of Wound Bed Yellow/Wh: 90 Wound Drainage Description: Serosanguineous Wound Drainage Amount: Moderate Wound Drainage Odor: None/Absent Tissue Surrounding Wound: Erythemic Wound General Appearance: Draining Wound Assessment #4: Wound Number: #4 Wound Present on Admission: Yes New Wound: No Status Change of Wound: No Wound Location Body Site Modif: left Wound Location Body Site: knee Wound Type: scab - scattered Nikkie Test: Does not Nikkie Wound Thickness: Partial Thickness Percent of Wound Black/Brown: 100 - scabs intact Wound Drainage Amount: None Wound Drainage Odor: None/Absent Tissue Surrounding Wound: Erythemic Wound General Appearance: Open to air, Clean/Dry Wound Comment #1 left lower leg discoloration. #2 left foot 4th and 5th toe extending to plantar discoloration. #3 right lateral thigh traumatic full thickness injury. #4 left knee scattered scabs. #5 discoloration to right upper extremity. Recommendation. -Local wound care as ordered. -Keep clean and dry. -Turn and reposition. -Optimize nutrition. -Assess and notify MD for any changes of condition in skin noted. AMANDA LAN Dec 06, 2016 14:07
--- NOTE | 2016-12-06 17:53 | Cardiology Progress Note ---
Subjective Subjective [id number] Objective Last 24 Hour Vital Signs Date Time Temp Pulse Resp B/P Pulse Ox O2 Delivery O2 Flow Rate FiO2 12/06/16 16:00 87 12/06/16 12:00 104 12/06/16 11:57 98.6 89 20 103/57 98 12/06/16 09:00 89 83/53 12/06/16 09:00 89 83/53 12/06/16 08:00 97.3 89 18 83/53 98 Nasal Cannula 12/06/16 08:00 84 12/06/16 04:00 77 12/06/16 04:00 97.2 66 16 73/42 97 Nasal Cannula 12/06/16 00:00 72 12/05/16 21:11 98.1 90 16 84/46 97 Nasal Cannula 12/05/16 21:00 63 101/55 12/05/16 20:48 81 12/05/16 20:30 97.7 110 14 105/50 96 Room Air 110 12/05/16 20:30 97.7 110 14 139/88 96 Room Air 110 12/05/16 19:03 97.7 12/05/16 19:00 97.7 110 14 139/88 96 Room Air 12/05/16 18:45 97.7 110 14 139/88 96 Room Air Intake and Output 12/05/16 12/06/16 19:00 07:00 Intake Total 480 ml Output Total 400 ml Balance 80 ml Intake Oral 480 ml Output Urine Total 400 ml Laboratory Tests Test 12/06/16 04:05 White Blood Count 8.6 K/UL (4.8-10.8) Red Blood Count 5.19 M/UL (4.20-5.40) Hemoglobin 12.9 G/DL (12.0-16.0) Hematocrit 40.8 % (37.0-47.0) Mean Corpuscular Volume 79 FL (80-99) L Mean Corpuscular Hemoglobin 24.8 PG (27.0-31.0) L Mean Corpuscular Hemoglobin Concent 31.5 G/DL (32.0-36.0) L Red Cell Distribution Width 14.6 % (11.6-14.8) Platelet Count 105 K/UL (150-450) L Mean Platelet Volume 14.2 FL (6.5-10.1) H Neutrophils (%) (Auto) 69.6 % (45.0-75.0) Lymphocytes (%) (Auto) 16.7 % (20.0-45.0) L Monocytes (%) (Auto) 7.5 % (1.0-10.0) Eosinophils (%) (Auto) 4.2 % (0.0-3.0) H Basophils (%) (Auto) 2.0 % (0.0-2.0) Prothrombin Time 10.5 SEC (9.30-11.50) Prothromb Time International Ratio 1.0 (0.9-1.1) Activated Partial Thromboplast Time 32 SEC (23-33) Sodium Level 134 mEQ/L (135-145) L Potassium Level 5.1 mEQ/L (3.4-4.9) H Chloride Level 98 mEQ/L (98-107) Carbon Dioxide Level 25 mEQ/L (20-30) Anion Gap 11 (5-15) Blood Urea Nitrogen 24 mg/dL (7-23) H Creatinine 0.6 mg/dL (0.5-0.9) Estimat Glomerular Filtration Rate mL/min (>60) Glucose Level 110 mg/dL (74-106) H Calcium Level 8.9 mg/dL (8.6-10.2) Total Bilirubin 0.5 mg/dL (0.0-1.2) Aspartate Amino Transf (AST/SGOT) 19 U/L (5-40) Alanine Aminotransferase (ALT/SGPT) 13 U/L (3-33) Alkaline Phosphatase 78 U/L (35-104) Total Protein 6.6 g/dL (6.6-8.7) Albumin 3.4 g/dL (3.5-5.2) L Globulin 3.2 g/dL Albumin/Globulin Ratio 1.0 (1.0-2.7) Triglycerides Level 124 mg/dL (< 150) Cholesterol Level 141 mg/dL (< 200) LDL Cholesterol 91 mg/dL (60-99) HDL Cholesterol 25 mg/dL (> 60) Cholesterol/HDL Ratio 5.6 (3.3-4.4) H Vitamin B12 Level 517 pg/mL (211-946) Thyroid Stimulating Hormone (TSH) 1.020 uIU/mL (0.300-4.500) PANCHO MOORE Dec 06, 2016 17:53
[2016-12-06] MEDS ORDERED: Carvedilol 6.25mg Tab ORAL ONE (18:30)
--- NOTE | 2016-12-06 21:00 | Consultation ---
DATE OF CONSULTATION: 12/06/2016 NEUROLOGICAL CONSULTATION REQUESTING PHYSICIAN: Seven Gomez M.D. HISTORY OF PRESENT ILLNESS: The patient is a 76-year-old female, seen in neurological evaluation to evaluate generalized aches and pains following recent fall, difficulty ambulation. The patient informed me that since she has significant low back issues in 1997, she is having difficulty ambulation, using at times walker, cane or wheelchair, still able to move around her apartment. The patient now informed me that three months ago, she had a pacemaker in place, but a week ago, she was taken to [facility] for pacemaker adjustment. She was not feeling well. She was weak. Reporting that she would let herself go on elevator where elevator started to fall down and she had a fall, injuring her upper and mid lower back and ribs. The patient indicated that after that she has difficulty ambulation and had several falls as well. Now she has difficulty with ambulation and brought to this hospital. On admission, blood pressure 77/45, she is afebrile, and heart rate of 95. The patient had atrial fibrillation with rapid ventricular rate. Her initial workup included laboratory studies with CBC revealed WBC 11.5, RBC 6.10, low MCV and MCH, platelet count was 75,000. Her coagulation panel was normal. Urinalysis was unremarkable with 1+ leukocyte esterase and her chemistry panel included potassium 5.7. Elevated CK at 427 and CK-MB 4.5. Unremarkable lipid panel and TSH. Abdomen and pelvic CT, no fracture and no dislocation noted. No mass lesions. Chest x-ray, left-sided chest wall pacemaker, status post low cervical fusion hardware noted. densities, persistent left mid lung and base. Enlarged cardiac silhouette. X-rays of her knee, no fracture or dislocation. PAST MEDICAL HISTORY: The patient has a history of cervical spine surgery, history of chronic low back pain, pacemaker since August 24, history of memory loss, hypertension, hyperlipidemia, and chronic pain syndrome. MEDICATIONS: Currently maintained on ibuprofen, gabapentin, fentanyl patch, Voltaren, clonidine, Coreg, Lipitor, aspirin, amlodipine, Xanax 0.25 mg, and albuterol. ALLERGIES: Morphine. SOCIAL HISTORY: Lives at home with her . No alcohol. No drug abuse. Nonsmoker. FAMILY HISTORY: Noncontributory. REVIEW OF SYSTEMS: The patient is a poor historian, but was able to provide with information indicating that she after having recent fall while in the [facility], she has generalized aches and pains, right hip, right ribcage pain, and difficulty ambulation. Denies headache or dizziness. Denies chest pain or palpitations. No respiratory difficulties. Denies abdominal pain or discomfort. No urine or bowel incontinence. PHYSICAL EXAMINATION: GENERAL: The patient is well-developed, moderately obese female, not in acute distress, lying comfortably in bed, on the left-sided position. She was watching TV. VITAL SIGNS: Now stable with blood pressure 103/67 and afebrile. HEENT: Head, normocephalic. No evidence of trauma. Eyes, ears, and throat are clear. NECK: Tenderness on palpation to cervical paraspinal region. There is also tenderness on palpation to thoracic and lumbar paraspinal region. Aches and pains of both upper extremities on palpation. There are multiple bruises including right leg, both arms, and right rib cage. Acute pain on the right rib cage, antalgic position when trying to turn around. MENTAL STATUS: She is alert and oriented x3. Her speech is fluent. Language is intact. She is quite poor historian, but pleasant and cooperative. CRANIAL NERVE II: Pupils both responding to light and accommodation. Extraocular movement intact. CRANIAL NERVE V: Normal corneal responses. CRANIAL NERVE VII: No facial asymmetry. CRANIAL NERVE VIII: Normal hearing. CRANIAL NERVE IX THROUGH XII: Tongue is in midline. Symmetric palate elevation. MOTOR EXAMINATION: Normal muscle tone and strength in both upper extremities. Able to lift briefly both lower extremities with some weakness of both legs, 4/5, prolonged antalgic. Peripheral pulses 1+ and symmetric. Gait not tested, the patient pain preventing her from ambulation. IMPRESSION: This is a 76-year-old female with a recent several falls without loss of consciousness with multiple soft tissue injuries, upper low back, upper and lower extremities. Cause of fall not clear, although the patient claims trip and fall event. 1. Status post recent fall with multiple soft tissue injuries. 2. Status post cervical spine surgery and discogenic lumbar disease with abnormal gait. 3. Pacemaker status post recent interrogation. 4. Chronic pain syndrome, opiate-dependent. 5. Hypertension. 6. Chronic obstructive pulmonary disease. RECOMMENDATION: 1. CAT scan of the brain without contrast. 2. Rib cage series. 3. PT/OT start ambulation. 4. Continue with gabapentin for pain management. 5. Reduce use of opiates. 6. Continue with cardiac assessment of atrial fibrillation. Thank you for allowing me to see this interesting patient in neurological consultation. José Luis Jody Julian DR: TRISTON JOB#: [id number] CC:
[2016-12-06] MEDS ORDERED: LISINOPRIL5 MG ORAL (22:00)
[2016-12-06] MEDS ORDERED: DOCUSATE SODIU100 MG ORAL (22:00)
[2016-12-06] MEDS ORDERED: CYCLOBENZAPRINE10 MG ORAL (22:00)
[2016-12-06] MEDS ORDERED: DIGOXIN250 MCG ORAL (22:00)
[2016-12-06] MEDS ORDERED: SPIRONOLACTONE1 EACH ORAL (22:00)
--- NOTE | 2016-12-06 22:36 | Diagnostic Imaging Report ---
APPROVED REPORT CPT Code: 04944 Vascular Symptoms CVA/TIA: Doppler Spectral Velocity Analysis RightLeft BILATERAL: CCA/BULB - Imaging reveals irregular, minimal plaque in both carotid bulbs. arteries. The Doppler spectral flow analysis is within normal limits throughout the internal and external carotid arteries. VERTEBRALS - Imaging reveals right vertebral artery to be patent, without evidence of stenosis or steal. The left vertebral artery was not well visualized.
--- NOTE | 2016-12-06 23:30 | Consultation ---
DATE OF CONSULTATION: 12/06/2016 CARDIOLOGY CONSULTATION This consultation was done as a coverage for Dr. Bartolome Esquivel. IDENTIFYING DATA: This is a 76-year-old female. REASON FOR EVALUATION: Atrial fibrillation. HISTORY OF PRESENT ILLNESS: Taken from discussion with the patient and the records available in the chart. The patient reported that she had delayed the pacemaker placement in 08/2016. It was 08/24 according to the patient. She has a little bit confused in the dates and so she apparently was readmitted to the hospital where they put the pacemaker and she is not clear of the name of that hospital. She states that she was admitted because her heart rate was dropping, so they put her back in the hospital and she was discharged later and she took the bus home from the hospital and then she fell somewhere on the street before she even reached her apartment. So, she right now does not have any palpitations. No chest pain. She said she is doing pretty good. She apparently was brought here to this hospital. She knows she is in a hospital, but she is not familiar with the name of it. Her atrial fibrillation was going on for a while. She has history of slightly elevated blood pressure. She denies diabetes. REVIEW OF SYSTEMS: From cardiac standpoint without any detail. She does not have any cardiac history of cardiac surgery beside the pacemaker. No cardiac procedures. No history of myocardial infarction. Her other medical problems according to the patient include arthritis, gait instability, low back pain and knee arthritis mostly. SURGICAL HISTORY: There is no any other surgical history. ALLERGIES: She is allergic to morphine. MEDICATIONS: All reviewed and reconciled, mostly she is treated for pain. She also is on aspirin and she has insomnia. HABITS: No history of drinking, smoking, or drug abuse. PHYSICAL EXAMINATION: GENERAL: The patient is a pleasant, elderly female, slightly confused, but cooperative. VITAL SIGNS: Blood pressure 73/42, heart rate 70, oxygen saturation is normal and temperature is normal. Her heart rate on the monitor was between 80 and 100 beats per minute. HEENT: PERRLA. EOMI. NECK: Supple. Jugular pressure is not elevated. She has normal carotid upstroke bilaterally. LUNGS: She has some scattered few rales otherwise is clear. HEART: Her heart rate is irregular with accented A2 pacemaker on the left side. This is intact. BREAST: No significant lumps. ABDOMEN: Obese, soft, and nontender. No masses palpable. Good bowel sounds present. EXTREMITIES: Lower extremities, no edema. There is some mild excoriations on both knees. NEUROLOGIC: She appears to be intact. IMAGING STUDIES: Her EKG available in the chart for review revealed atrial fibrillation with rate of 120 beats per minute, low voltage throughout and no acute ST or T changes. Her echocardiogram also was noted. There is IVC dilatation biatrial enlargement. LABORATORY DATA: Reviewed. She had an elevated white count of 11.5, today is normal. Her platelets are low at 75 yesterday and 105 today. She had BUN yesterday of 33 and today it is 24. Glucose is 110. TSH was normal. Troponin was normal upon admission. IMPRESSION AND RECOMMENDATION: Atrial fibrillation appears to be permanent. Her rate is better today and she received digoxin yesterday. Her blood pressure is low, so I am discontinuing amlodipine and clonidine, and she is going to have carvedilol for her heart rate control. If her blood pressure is above 100 then she is going to have carvedilol. She is on aspirin for anticoagulation and this should be resumed. I am not sure if she has any contraindications for full anticoagulation probably due to falls and dizziness that will be reasonable contraindication. We are going to watch her very carefully. Thank you very much for your consultation. Sushila Zeng M.D. DR: ADOLPH JOB#: [id number] CC:
[2016-12-07 04:00] VITALS: BP 134/88
[2016-12-07] MEDS: Norco 5mg/325mg tab ORAL PRN ×3 (05:37→22:09)
[2016-12-07 08:00] VITALS: BP 144/82
[2016-12-07] MEDS: Carvedilol 6.25mg Tab ORAL SCH ×2 (08:45→21:08)
[2016-12-07] MEDS: Aspirin Baby 81mg ORAL SCH (08:45)
--- NOTE | 2016-12-07 10:08 | Pulmonology Progress Note ---
Assessment/Plan Problems: (1) Acute encephalopathy (2) Atrial fibrillation with RVR (3) ATN (acute tubular necrosis) (4) Hyperkalemia (5) Multiple injuries due to trauma (6) Low back pain (7) Pacemaker Assessment/Plan check CT of head heart rate better bp better ? anticoagulation, probably contraindicated b/o episodes of fall, maybe just aspirin check CT of spine and head psych evaluation for history of depression Subjective ROS Limited/Unobtainable: No Interval Events: had pt, awaiting CT head, spine Constitutional: Reports: no symptoms HEENT: Repors: no symptoms Respiratory: Reports: no symptoms Allergies: Coded Allergies: MORPHINE (Verified Allergy, Severe, Hives, 10/12/12) HIVES Objective Last 24 Hour Vital Signs Date Time Temp Pulse Resp B/P Pulse Ox O2 Delivery O2 Flow Rate FiO2 12/07/16 08:45 95 144/82 12/07/16 08:25 95 16 Room Air 12/07/16 08:25 Room Air 12/07/16 08:25 96 Room Air 12/07/16 08:06 81 12/07/16 08:00 98.1 94 20 144/82 96 Room Air 12/07/16 04:00 98.5 90 16 134/88 96 Nasal Cannula 2.0 12/07/16 03:58 85 12/07/16 00:00 81 12/06/16 23:36 80 16 Nasal Cannula 2.0 28 12/06/16 23:36 98 Nasal Cannula 2.0 28 12/06/16 23:35 Nasal Cannula 2.0 28 12/06/16 23:35 97.7 80 16 119/57 97 Nasal Cannula 2.0 12/06/16 22:29 80 143/67 12/06/16 20:17 97.9 16 103/57 98 Nasal Cannula 2.0 12/06/16 20:03 84 12/06/16 20:02 85 12/06/16 19:59 16 103/57 98 Nasal Cannula 2.0 12/06/16 18:14 85 106/58 12/06/16 16:00 87 12/06/16 16:00 97.9 85 18 106/58 96 Nasal Cannula 2.0 12/06/16 12:00 104 12/06/16 11:57 98.6 89 20 103/57 98 Intake and Output 12/06/16 12/07/16 19:00 07:00 Intake Total 600 ml 200 ml Output Total 1750 ml 820 ml Balance -1150 ml -620 ml Intake Oral 600 ml 200 ml Output Urine Total 1750 ml 820 ml General Appearance: WD/WN HEENT: normocephalic, atraumatic Respiratory/Chest: chest wall non-tender, lungs clear Cardiovascular: normal peripheral pulses, irregularly irregular Abdomen: normal bowel sounds, soft, non tender Genitourinary: normal external genitalia Extremities: no cyanosis 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, abnormal gait Lymphatic: no neck adenopathy Microbiology Date/Time Source Procedure Growth Status 12/05/16 16:58 Blood Blood Culture - Preliminary NO GROWTH AFTER 24 HOURS Resulted 12/05/16 16:48 Blood Blood Culture - Preliminary NO GROWTH AFTER 24 HOURS Resulted Current Medications Medications (Trade) Dose Ordered Sig/[place] Route PRN Reason Start Time Stop Time Status Last Admin Dose Admin Acetaminophen (Tylenol) 650 mg Q4H PRN ORAL fever 12/05/16 20:45 01/04/17 20:44 Acetaminophen/ Hydrocodone Bitart (Everetts 5/325) 1 tab Q4H PRN ORAL Unrelieved Moderate Pain (4-6) 12/06/16 12:30 12/13/16 12:29 12/07/16 05:37 Al Hydroxide/Mg Hydroxide (Mylanta II) 30 ml Q6H PRN ORAL dyspepsia 12/05/16 20:45 01/04/17 20:44 Albuterol/ Ipratropium (DuoNeb 0.5-3(2.5)mg/3ml) 3 ml Q4H PRN HHN Shortness of Breath 12/05/16 20:45 12/10/16 20:44 Aspirin (ASA) 81 mg DAILY ORAL 12/06/16 09:00 01/05/17 08:59 12/07/16 08:45 Carvedilol (Coreg) 6.25 mg EVERY 12 HOURS ORAL 12/06/16 09:00 01/05/17 08:59 12/07/16 08:45 Clonidine HCl (Catapres) 0.1 mg Q4H PRN ORAL SBP > 160 12/05/16 20:45 01/04/17 20:44 Dextrose (Dextrose 50%) STAT PRN IV Hypoglycemia 12/05/16 20:45 01/04/17 20:44 Gabapentin (Neurontin) 300 mg BID ORAL 12/06/16 18:00 01/05/17 17:59 12/07/16 08:46 Lidocaine (Lidoderm 5% PATCH) 1 patch DAILY TDERMAL 12/06/16 12:00 01/05/17 11:59 12/06/16 23:04 Lorazepam (Ativan 2mg/ml 1ml) 0.5 mg Q4H PRN IV For Anxiety 12/05/16 20:45 12/12/16 20:44 12/06/16 06:48 Nitroglycerin (Ntg) 0.4 mg Q5M X 3 DOSES PRN SL Prn Chest Pain 12/05/16 20:45 01/04/17 20:44 Ondansetron HCl (Zofran) 4 mg Q6H PRN IVP Nausea & Vomiting 12/05/16 20:45 01/04/17 20:44 Polyethylene Glycol (Miralax) 17 gm HSPRN PRN ORAL Constipation 12/05/16 20:45 01/04/17 20:44 Temazepam (Restoril) 15 mg HSPRN PRN ORAL Insomnia 12/05/16 20:45 12/12/16 20:44 Tizanidine HCl (Zanaflex) 4 mg DAILYPRN PRN ORAL For Pain 12/05/16 20:45 01/04/17 20:44 12/05/16 22:31 NIKO HARVEY Dec 07, 2016 10:08
[2016-12-07 12:00] VITALS: BP 135/72
--- NOTE | 2016-12-07 15:18 | Consultation ---
Consult Note Consult Note Patient is s a 76-year-old female who presented after increased bilateral knee pain as well as low back pain after a fall. Patient probably had a prior history of chronic pain. 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 Patient was having difficulty ambulating after her fall. Patient states she normally takes [place] for pain. She intermittently takes ibuprofen. She denied any numbness or weakness. MORPHINE (Verified Allergy, Severe, Hives, 10/12/12) HIVES Past Medical History: see triage record, AFib Past Surgical History: pacemaker Last Menstrual Period: UNK Past Medical History: No History, Except For Hx Cardiac Problems: Yes - afib Hx Hypertension: Yes Hx Asthma: Yes Hx COPD: Yes History Of Psychiatric Problem: Yes Hx Neurological Problems: Yes - h/o of aloc in 2010 Hx Dementia: Yes Hx Alzheimer's Disease: Yes Assessment/Plan status: (1) Acute encephalopathy (2) Atrial fibrillation with RVR (3) ATN (acute tubular necrosis) (4) Hyperkalemia (5) Multiple injuries due to trauma (6) Low back pain (7) Pacemaker plan: monitor renal parameters and lytes Anemia ricks check CT of head bp control ? anticoagulation, probably contraindicated b/o episodes of fall, maybe just aspirin psych evaluation for history of depression urine studies PORTER BROWN Dec 07, 2016 15:18
--- NOTE | 2016-12-07 15:35 | Neurology Progress Note ---
Interim History Interim History ROS Limited/Unobtainable: No Complaints: L knee swelling and pain Events: improved less pain "calmer" Objective Physical Exam Last Vital Signs Date Time Temp Pulse Resp B/P Pulse Ox O2 Delivery O2 Flow Rate FiO2 12/07/16 13:05 98.1 12/07/16 12:00 98 21 135/72 97 Room Air 12/07/16 04:00 2.0 12/06/16 23:36 28 General: well developed, no acute distress, other - obese L knee bruised painful swallen Head: normocophalic, atraumatic Neck: no rigidity Neurologic Exam Mental Status: awake, alert, oriented x4, normal cognition, good mathematical skills, normal recent memory, normal remote memory, preserved visuospatial function Speech: normal speech, no dysarthia Language: normal language, no aphasia Cranial Nerve II: fundus normal, visual maguire, no papilledema Cranial Nerves III, IV, : PERRLA, EOMI, pupils Cranial Nerve V: normal facial sensations, temporales function normal, masseters function normal, pterygoids function normal Cranial Nerve VII: no facial asymmetry, normal facial expressions Cranial Nerve VIII: normal hearing, no nystagmus Cranial Nerve IX: normal palate elevation, gag response Cranial Nerve X: no voice hoarseness Cranial Nerve XI: SCM symmetric, trapezii function normal Cranial Nerve XII: tongue midline, no tongue atrophy/fasciculations Motor System: normal muscle tone, no involuntary movement, no muscle wasting Sensory: normal pinprick Deep Tendon Reflexes: 0 ankle (L), 0 ankle (R), 0 bicep (L), 0 bicep (R), 0 brachioradialis (L), 0 brachioradialis (R), 0 knee (L), 0 knee (R), 0 tricep (L) , 0 tricep (R) Reflexes: mute plantar (L), mute plantar (R) Gait: other - limp Impression/Recommendations Problems: (1) Multiple injuries due to trauma (2) Atrial fibrillation with RVR (3) Recurrent falls (4) General weakness (5) Pacemaker (6) r/o L Knee hemarthrosis Status: stable Recommendations # [id number] CT brain pend pt/ot LIVIA HOUSER Dec 07, 2016 15:35
[2016-12-07 16:00] VITALS: BP 103/55
[2016-12-07 20:00] VITALS: BP 143/75
--- NOTE | 2016-12-07 20:00 | Cardiology Report ---
APPROVED REPORT EXAM: Two-dimensional and M-mode echocardiogram with Doppler and color Doppler. INDICATION Left Ventricular Function M-Mode DIMENSIONS IVSd0.9 (0.7-1.1cm)Left Atrium (MM)3.9 (1.6-4.0cm) LVDd4.4 (3.5-5.6cm)Aortic Root2.7 (2.0-3.7cm) PWd0.6 (0.7-1.1cm)Aortic Cusp Exc.2.1 (1.5-2.0cm) LVDs2.9 (2.5-4.0cm) PWs1.1 cm Normal left ventricular chamber size, systolic function and wall motion. Left ventricular ejection fraction estimated to be 55 %. No evidence of ventricular hypertrophy. Anterior Echo-free space, may be due to pericardial fat or effusion. Severe bi-atrial enlargement. Mild right ventricular enlargement. Mild focal aortic valve sclerosis with adequate cusp excursion. Mildly thickened mitral valve leaflets with normal excursion. Mild mitral annulus and aortic root calcification. Pulmonic valve not well visualized. Normal tricuspid valve structure. IVC dilated at 2.7 cm with physiologic collapse. Pacemaker lead presented in right ventricle. A color flow and spectral Doppler study was performed and revealed: No aortic regurgitation. Trace mitral regurgitation. Left ventricular diastolic function could not be determined due to A-Fib. Trace tricuspid regurgitation. Trace pulmonic regurgitation present.
--- NOTE | 2016-12-07 20:13 | Cardiology Report ---
APPROVED REPORT EKG Measurement Heart [id number] Atrial fibrillation with rapid ventricular response Incomplete right bundle branch block Abnormal ECG
[2016-12-08] VITALS: BP 123/73
--- NOTE | 2016-12-08 03:15 | Consultation ---
DATE OF CONSULTATION: CONSULTING PHYSICIAN: Erik Taylor M.D. HISTORY OF PRESENT ILLNESS: This is a 76-year-old female with a history of COPD, osteoarthritis, depression, and who has been admitted to the hospital due to multiple trauma and fall and increased bilateral knee pain. Psychiatry was consulted as the patient endorsed depressed mood, anhedonia, worthlessness, hopelessness, decreased energy, anxiety, and insomnia. She stated that she usually uses Xanax. PAST PSYCHIATRIC HISTORY: The patient has anxiety disorder, depression, and insomnia. PAST MEDICAL HISTORY: As mentioned above. ALLERGIES: Morphine, which gave her hives. SUBSTANCE ABUSE HISTORY: No history of illicit drug use or alcohol. MENTAL STATUS EXAMINATION: The patient is alert and oriented x3. Mood is depressed. Affect is constricted. Congruent mood. Thought process is concrete. Thought content, no suicidal or homicidal ideations. Cognition is intact. ASSESSMENT: Proctor I Major depressive disorder. Proctor II Deferred. Proctor III As above. Proctor IV Moderate. Proctor V Global assessment of functioning is 25 PLAN: 1. We will start the patient on Lexapro 10 mg by mouth every morning. 2. We will continue the Ativan. 3. Provide the patient with supportive therapy and reality orientation. Erik Taylor M.D. DR: ROGERS JOB#: [id number] CC:
[2016-12-08 04:00] VITALS: BP 128/74
[2016-12-08 05:35] LABS: BASOPHILS % (AUTO) 1.1 % (0.0-2.0); EOSINOPHILS % (AUTO) 4.6 % (0.0-3.0); MEAN CORPUSCULAR HEMOGLOBIN 24.2 PG (27.0-31.0); MEAN CORPUSCULAR HGB CONC 32.1 G/DL (32.0-36.0); MEAN CORPUSCULAR VOLUME 75 FL (80-99); MEAN PLATELET VOLUME 8.4 FL (6.5-10.1); MONOCYTES % (AUTO) 6.3 % (1.0-10.0); PLATELET COUNT 242 K/UL (150-450); RED BLOOD COUNT 5.56 M/UL (4.20-5.40); WHITE BLOOD COUNT 7.9 K/UL (4.8-10.8)
[2016-12-08 06:10] LABS: ALANINE AMINOTRANSFERASE 10 U/L (3-33); ALBUMIN/GLOBULIN RATIO 0.9 (1.0-2.7); ANION GAP 15 (5-15); ASPARTATE AMINO TRANSFERASE 10 U/L (5-40); CALCIUM 9.1 mg/dL (8.6-10.2); CARBON DIOXIDE 25 mEQ/L (20-30); CHLORIDE 99 mEQ/L (98-107); CREATININE 0.6 mg/dL (0.5-0.9); CRP QUANT 5.5 mg/dL (< 0.5); MAGNESIUM 1.5 mg/dL (1.7-2.5); PHOSPHORUS 3.1 mg/dL (2.5-4.8); POTASSIUM 3.9 mEQ/L (3.4-4.9); SODIUM 139 mEQ/L (135-145); TOTAL PROTEIN 6.9 g/dL (6.6-8.7); URIC ACID 5.9 mg/dL (3.0-7.5)
[2016-12-08 06:23] LABS: FERRITIN 163 ng/mL (13-150)
[2016-12-08 06:33] LABS: HEMOLYSIS 5; IRON 34 ug/dL (37-145); TOTAL IRON BINDING CAPACITY 191 ug/dL (250-400)
[2016-12-08 08:00] VITALS: BP 157/83
[2016-12-08] MEDS: Aspirin Baby 81mg ORAL SCH (08:01)
--- NOTE | 2016-12-08 08:16 | Diagnostic Imaging Report ---
Indication: Altered mental status and head pain, status post fall 5 days ago Technique: spiral acquisitions obtained through the brain. Angled axial and coronal 5 x 5 mm slices were reconstructed. No IV contrast utilized. Radiation dose was minimized using automated exposure control Total dose length product 1439 mGycm. CTDIvol(s) 70 mGy Comparison: 06/26/2015 FINDINGS: No acute hemorrhage or edema. No mass effect or midline shift. There is age-related enlargement of the ventricles and extra axial CSF spaces. There is periventricular deep white matter ischemic change. Normal milian-white differentiation. Visualized orbits are unremarkable. Visualized sinuses are unremarkable. Intact calvarium. No significant interim change IMPRESSION: Chronic and age-related changes. Negative for acute intracranial bleed or mass effect The CT scanner at [facility] is accredited by the [employer] and the scans are performed using protocols designed to limit radiation exposure to as low as reasonably achievable to attain images of sufficient resolution adequate for diagnostic evaluation
--- NOTE | 2016-12-08 08:31 | Diagnostic Imaging Report ---
Indications: Low back pain, status post fall 5 days ago Technique: Spiral acquisitions obtained through the lumbar spine. Multiplanar reconstructions were generated. No IV contrast utilized. Total dose length product 650 mGycm. CTDIvol(s) 22 mGy. Dose reduction achieved using automated exposure control Comparison: None Findings: There is burst/compression fracture of the L1 vertebral body, with anterior wedging, posterior height loss, as well as slight posterior retropulsion of the superior posterior wall by about 4 mm into the spinal canal. This results in about 50% height loss anteriorly. There is no significant resulting kyphotic deformity. This is also evident in retrospect on abdomen pelvis CT 12/05/2016. No earlier studies showing this area are available. The remaining vertebral body heights are preserved. The bony alignment is normal except for very slight anterior offset of L4 on L5 and L5 on S1. The disc spaces are preserved, although there is vacuum formation at L4-5 and L5-S1. No other evidence of acute fracture or dislocation. There is mild degenerative narrowing of the right T11-12 neural foramen. At T12-L1, there is, as mentioned earlier, posterior retropulsion of the superior-posterior wall of the vertebral body. This does not significantly narrow the spinal canal. There is mild narrowing of the right neural foramen, predominantly due to facet hypertrophy. At L3-4, there is mild circumferential annular bulge, which does not significantly narrow the spinal canal. There is mild bilateral facet degeneration, worse on the right. At L4-5, there is mild circumferential annular bulge. There is borderline spinal stenosis, both in the AP and transverse axes, due to the bulging disc, ligamentum flavum hypertrophy, and bilateral facet degeneration. At L5-S1, no significant disc bulge or protrusion. Is ligamentum flavum hypertrophy, but this does not result in any significant spinal canal stenosis. 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 There is mild bone on bone contact of the L4 spinous process with the L5 spinous process, and of the L5 spinous process with the central posterior elements of the upper sacrum. The included extraspinal soft tissues are unremarkable except for evidence of colonic diverticulosis. Impression: Positive for L1 burst/compression fracture, resulting in about 50% height loss anteriorly. CT appearance is nonspecific as regards age. Bone scanning may be useful to help determine acuity and to determine if the patient is a candidate for intervention, if clinically indicated (other studies indicate patient has a pacemaker, contraindicating MRI) Mild degenerative changes, as detailed on a level by level basis above Incidental finding of right S2 nerve root cyst Colonic diverticulosis, also previously reported The CT scanner at [facility] is accredited by the [employer] and the scans are performed using protocols designed to limit radiation exposure to as low as reasonably achievable to attain images of sufficient resolution adequate for diagnostic evaluation.
[2016-12-08] MEDS: Carvedilol 6.25mg Tab ORAL SCH (08:54)
[2016-12-08 12:00] VITALS: BP 136/75
--- NOTE | 2016-12-08 12:02 | Pulmonology Progress Note ---
Assessment/Plan Problems: (1) L1 vertebral fracture (2) Acute encephalopathy (3) Atrial fibrillation with RVR (4) ATN (acute tubular necrosis) (5) Hyperkalemia (6) Multiple injuries due to trauma (7) Low back pain (8) Pacemaker Assessment/Plan heart rate better bp better ? anticoagulation, probably contraindicated b/o episodes of fall, maybe just aspirin check CT of spine showed L1 fracture Spine surgeon contacted, Dr. Bell, awaiting for response. telemetry if no surgery or procedure needed she can be discharged to rehab. Subjective ROS Limited/Unobtainable: No Constitutional: Reports: no symptoms HEENT: Repors: no symptoms Allergies: Coded Allergies: MORPHINE (Verified Allergy, Severe, Hives, 10/12/12) HIVES Objective Last 24 Hour Vital Signs Date Time Temp Pulse Resp B/P Pulse Ox O2 Delivery O2 Flow Rate FiO2 12/08/16 08:54 77 157/83 12/08/16 08:08 102 12/08/16 08:00 97.0 86 20 157/83 97 Room Air 12/08/16 06:31 100 Room Air 21 12/08/16 06:31 96 16 Room Air 21 12/08/16 06:31 Room Air 21 12/08/16 04:00 98.2 74 18 128/74 94 Room Air 12/08/16 04:00 91 12/08/16 00:00 97.7 77 18 123/73 93 Room Air 12/08/16 00:00 109 12/07/16 23:08 98.7 12/07/16 21:08 91 143/75 12/07/16 20:00 98.7 91 20 143/75 98 Nasal Cannula 2.0 12/07/16 20:00 91 12/07/16 19:30 100 Room Air 21 12/07/16 19:30 Room Air 21 12/07/16 19:30 100 16 Room Air 21 12/07/16 16:00 97.0 81 20 103/55 100 Room Air 12/07/16 15:15 99 12/07/16 12:00 98.1 98 21 135/72 97 Room Air Intake and Output 12/07/16 12/08/16 19:00 07:00 Intake Total 860 ml Output Total 650 ml 550 ml Balance 210 ml -550 ml Intake Oral 360 ml IV Total 500 ml Output Urine Total 650 ml 550 ml # Bowel Movements 1 General Appearance: WD/WN HEENT: normocephalic, atraumatic Respiratory/Chest: chest wall non-tender, lungs clear Breasts: no masses Cardiovascular: normal peripheral pulses Abdomen: normal bowel sounds, soft, non tender Genitourinary: normal external genitalia Extremities: no cyanosis Skin: no rash Microbiology Date/Time Source Procedure Growth Status 12/05/16 16:58 Blood Blood Culture - Preliminary NO GROWTH AFTER 48 HOURS Resulted 12/05/16 16:48 Blood Blood Culture - Preliminary NO GROWTH AFTER 48 HOURS Resulted 12/05/16 19:55 Nasal Nares Left MRSA Culture - Final NO METHICILLIN RESISTANT STAPH AUREUS... Complete 12/05/16 19:55 Rectum VRE Culture - Final NO VANCOMYCIN RESISTANT ENTEROCOCCUS ... Complete Laboratory Tests 12/08/16 04:00: White Blood Count 7.9, Red Blood Count 5.56H, Hemoglobin 13.4, Hematocrit 41.8, Mean Corpuscular Volume 75L, Mean Corpuscular Hemoglobin 24.2L, Mean Corpuscular Hemoglobin Concent 32.1, Red Cell Distribution Width 14.0, Platelet Count 242, Mean Platelet Volume 8.4, Neutrophils (%) (Auto) 69.0, Lymphocytes (% ) (Auto) 19.0L, Monocytes (%) (Auto) 6.3, Eosinophils (%) (Auto) 4.6H, Basophils (%) (Auto) 1.1, Sodium Level 139, Potassium Level 3.9, Chloride Level 99, Carbon Dioxide Level 25, Anion Gap 15, Blood Urea Nitrogen 13, Creatinine 0.6, Estimat Glomerular Filtration Rate , Glucose Level 114H, Uric Acid 5.9, Calcium Level 9.1, Phosphorus Level 3.1, Magnesium Level 1.5L, Iron Level 34L, Total Iron Binding Capacity 191L, Percent Iron Saturation 18, Unsaturated Iron Binding 157, Ferritin 163H, Total Bilirubin 0.3, Aspartate Amino Transf (AST/ SGOT) 10, Alanine Aminotransferase (ALT/SGPT) 10, Alkaline Phosphatase 71, C- Reactive Protein, Quantitative 5.5H, Pro-B-Type Natriuretic Peptide 2469H, Total Protein 6.9, Albumin 3.4L, Globulin 3.5, Albumin/Globulin Ratio 0.9L, Folate [Pending] Current Medications Medications (Trade) Dose Ordered Sig/Sarmad Route PRN Reason Start Time Stop Time Status Last Admin Dose Admin Acetaminophen (Tylenol) 650 mg Q4H PRN ORAL fever 12/05/16 20:45 01/04/17 20:44 Acetaminophen/ Hydrocodone Bitart ([place] 5/325) 1 tab Q4H PRN ORAL Unrelieved Moderate Pain (4-6) 12/06/16 12:30 12/13/16 12:29 12/07/16 22:09 Albuterol/ Ipratropium (DuoNeb 0.5-3(2.5)mg/3ml) 3 ml Q4H PRN HHN Shortness of Breath 12/05/16 20:45 12/10/16 20:44 Aspirin (ASA) 81 mg DAILY ORAL 12/06/16 09:00 01/05/17 08:59 12/08/16 08:01 Carvedilol (Coreg) 6.25 mg EVERY 12 HOURS ORAL 12/06/16 09:00 01/05/17 08:59 12/08/16 08:54 Clonidine HCl (Catapres) 0.1 mg Q4H PRN ORAL SBP > 160 12/05/16 20:45 01/04/17 20:44 Dextrose (Dextrose 50%) STAT PRN IV Hypoglycemia 12/05/16 20:45 01/04/17 20:44 Escitalopram Oxalate 10 mg 10 mg DAILY ORAL 12/08/16 09:00 01/07/17 08:59 12/08/16 08:01 Gabapentin (Neurontin) 300 mg BID ORAL 12/06/16 18:00 01/05/17 17:59 12/08/16 08:01 Lidocaine (Lidoderm 5% PATCH) 1 patch DAILY TDERMAL 12/06/16 12:00 01/05/17 11:59 12/08/16 08:01 Lorazepam (Ativan 2mg/ml 1ml) 0.5 mg Q4H PRN IV For Anxiety 12/05/16 20:45 12/12/16 20:44 12/06/16 06:48 Magnesium Sulfate (Magnesium Sulfate 1gm/100ml) 100 ml @ 100 mls/hr Q1H IVPB 12/08/16 10:00 12/08/16 11:59 12/08/16 11:21 Nitroglycerin (Ntg) 0.4 mg Q5M X 3 DOSES PRN SL Prn Chest Pain 12/05/16 20:45 01/04/17 20:44 Ondansetron HCl (Zofran) 4 mg Q6H PRN IVP Nausea & Vomiting 12/05/16 20:45 01/04/17 20:44 Pantoprazole (Protonix) 40 mg DAILY ORAL 12/07/16 16:00 01/06/17 15:59 12/08/16 08:02 Polyethylene Glycol (Miralax) 17 gm HSPRN PRN ORAL Constipation 12/05/16 20:45 01/04/17 20:44 12/07/16 21:08 Temazepam (Restoril) 15 mg HSPRN PRN ORAL Insomnia 12/05/16 20:45 12/12/16 20:44 Tizanidine HCl (Zanaflex) 4 mg DAILYPRN PRN ORAL For Pain 12/05/16 20:45 01/04/17 20:44 12/05/16 22:31 NIKO HARVEY Dec 08, 2016 12:02
--- NOTE | 2016-12-08 12:04 | General Progress Note ---
Assessment/Plan Status: stable Assessment/Plan status; (1) Acute encephalopathy- resolving (2) Atrial fibrillation with RVR (3) ATN (acute tubular necrosis) resolved (4) Hyperkalemia resolved (5) Multiple injuries due to trauma (6) Low back pain (7) Pacemaker plan: monitor renal parameters and lytes Anemia ricks , iron low- bp control, adjust meds, increase coreg dose ? anticoagulation, probably contraindicated b/o episodes of fall, maybe just aspirin psych evaluation for history of depression urine studies Subjective ROS Limited/Unobtainable: No Constitutional: Reports: malaise Allergies: Coded Allergies: MORPHINE (Verified Allergy, Severe, Hives, 10/12/12) HIVES Objective Last 24 Hour Vital Signs Date Time Temp Pulse Resp B/P Pulse Ox O2 Delivery O2 Flow Rate FiO2 12/08/16 08:54 77 157/83 12/08/16 08:08 102 12/08/16 08:00 97.0 86 20 157/83 97 Room Air 12/08/16 06:31 100 Room Air 12/08/16 06:31 96 16 Room Air 12/08/16 06:31 Room Air 21 12/08/16 04:00 98.2 74 18 128/74 94 Room Air 12/08/16 04:00 91 12/08/16 00:00 97.7 77 18 123/73 93 Room Air 12/08/16 00:00 109 12/07/16 23:08 98.7 12/07/16 21:08 91 143/75 12/07/16 20:00 98.7 91 20 143/75 98 Nasal Cannula 2.0 12/07/16 20:00 91 12/07/16 19:30 100 Room Air 21 12/07/16 19:30 Room Air 12/07/16 19:30 100 16 Room Air 12/07/16 16:00 97.0 81 20 103/55 100 Room Air 12/07/16 15:15 99 Intake and Output 12/07/16 12/08/16 19:00 07:00 Intake Total 860 ml Output Total 650 ml 550 ml Balance 210 ml -550 ml Intake Oral 360 ml IV Total 500 ml Output Urine Total 650 ml 550 ml # Bowel Movements 1 Laboratory Tests 12/08/16 04:00: White Blood Count 7.9, Red Blood Count 5.56H, Hemoglobin 13.4, Hematocrit 41.8, Mean Corpuscular Volume 75L, Mean Corpuscular Hemoglobin 24.2L, Mean Corpuscular Hemoglobin Concent 32.1, Red Cell Distribution Width 14.0, Platelet Count 242, Mean Platelet Volume 8.4, Neutrophils (%) (Auto) 69.0, Lymphocytes (% ) (Auto) 19.0L, Monocytes (%) (Auto) 6.3, Eosinophils (%) (Auto) 4.6H, Basophils (%) (Auto) 1.1, Sodium Level 139, Potassium Level 3.9, Chloride Level 99, Carbon Dioxide Level 25, Anion Gap 15, Blood Urea Nitrogen 13, Creatinine 0.6, Estimat Glomerular Filtration Rate , Glucose Level 114H, Uric Acid 5.9, Calcium Level 9.1, Phosphorus Level 3.1, Magnesium Level 1.5L, Iron Level 34L, Total Iron Binding Capacity 191L, Percent Iron Saturation 18, Unsaturated Iron Binding 157, Ferritin 163H, Total Bilirubin 0.3, Aspartate Amino Transf (AST/ SGOT) 10, Alanine Aminotransferase (ALT/SGPT) 10, Alkaline Phosphatase 71, C- Reactive Protein, Quantitative 5.5H, Pro-B-Type Natriuretic Peptide 2469H, Total Protein 6.9, Albumin 3.4L, Globulin 3.5, Albumin/Globulin Ratio 0.9L, Folate [Pending] Height (Feet): 5 Height (Inches): 6.00 Weight (Pounds): 166 General Appearance: no apparent distress Cardiovascular: arrhythmia Genitourinary/Rectal: other - naik out Objective other exam not changed PORTER BROWN Dec 08, 2016 12:04
--- NOTE | 2016-12-08 12:47 | Diagnostic Imaging Report ---
Indication: PAIN Technique: Multiple views of the left ribs Comparison: None Findings: There is questionably a fracture deformity of the anterior aspect of the 10th rib near the costochondral junction, probably not acute if real. No definite acute fractures. No gross pneumothorax. There is a left chest pacemaker. Compression fracture deformity of the L1 vertebral body is noted. There are degenerative changes of the thoracic spine. Surgical hardware is seen within the cervical spine Impression: No definite acute bony trauma. Findings as noted
[2016-12-08] MEDS: Norco 5mg/325mg tab ORAL PRN ×2 (13:06→21:06)
[2016-12-08 16:00] VITALS: BP 154/93
[2016-12-08] MEDS ORDERED: NS 550ML IV ONE (16:14)
--- NOTE | 2016-12-08 16:17 | Diagnostic Imaging Report ---
Indication: PAIN mid right-sided rib pain Technique: Multiple views of the right ribs Comparison: None Findings: There is an old healed fracture deformity of the right anterior sixth rib. No acute fractures. No gross pneumothorax. There is elevation of the right humeral head. There are degenerative changes of the right shoulder joint. Surgical hardware is seen in the lower cervical spine Impression: No acute rib fractures. Evidence of prior rib trauma. Elevation right humeral head consistent with chronic rotator cuff injury Degenerative changes of the shoulder joint
[2016-12-08] MEDS ORDERED: LORazepam Inj 2mg/ml 1ml IV ONE (16:50)
[2016-12-08] MEDS ORDERED: Nitroglycerin Subl 0.4mg tab (Bottle Of 25) SL PRN (18:00)
[2016-12-08] MEDS ORDERED: LORazepam Inj 2mg/ml 1ml IV PRN (18:00)
[2016-12-08] MEDS ORDERED: Miralax 17gm pkt ORAL PRN (18:00)
[2016-12-08] MEDS ORDERED: DuoNeb 0.5-3(2.5)mg/3ml neb HHN PRN (18:00)
[2016-12-08 20:00] VITALS: BP 156/110
[2016-12-08] MEDS ORDERED: Carvedilol 12.5mg tab ORAL SCH (21:00)
[2016-12-08] MEDS: Carvedilol 12.5mg tab ORAL SCH (21:05)
--- NOTE | 2016-12-08 21:05 | Cardiology Progress Note ---
Assessment/Plan Problem List: (1) Atrial fibrillation with RVR (2) Low back pain (3) Multiple injuries due to trauma (4) L1 vertebral fracture (5) Hypertension Status: stable, progressing Status Narrative AF w RVR Falls w/ injury, L1 fracture Assessment/Plan Continue oral amiodarone and carvedilol for ventricular rate control in AF Agree w/ holding anticoagulation, given fall/bleeding risk Subjective ROS Limited/Unobtainable: No Subjective No c/o palpitations, dyspnea Objective Last 24 Hour Vital Signs Date Time Temp Pulse Resp B/P Pulse Ox O2 Delivery O2 Flow Rate FiO2 12/08/16 20:00 97.4 102 20 156/110 99 Room Air 12/08/16 19:42 94 Room Air 12/08/16 19:42 Room Air 12/08/16 19:41 84 18 Room Air 12/08/16 16:22 84 12/08/16 16:00 98.1 90 18 154/93 93 Room Air 12/08/16 12:00 97.5 78 20 136/75 94 Room Air 12/08/16 11:54 85 12/08/16 08:54 77 157/83 12/08/16 08:08 102 12/08/16 08:00 97.0 86 20 157/83 97 Room Air 12/08/16 06:31 100 Room Air 12/08/16 06:31 96 16 Room Air 12/08/16 06:31 Room Air 12/08/16 04:00 98.2 74 18 128/74 94 Room Air 12/08/16 04:00 91 12/08/16 00:00 97.7 77 18 123/73 93 Room Air 12/08/16 00:00 109 12/07/16 23:08 98.7 12/07/16 21:08 91 143/75 General Appearance: WD/WN, alert EENT: PERRL/EOMI Neck: supple, no JVD Rhythm: Afib Cardiovascular: normal rate, no gallop/murmur, irregularly irregular Respiratory/Chest: lungs clear Abdomen: non tender, soft Intake and Output 12/07/16 12/08/16 19:00 07:00 Intake Total 860 ml Output Total 650 ml 550 ml Balance 210 ml -550 ml Intake Oral 360 ml IV Total 500 ml Output Urine Total 650 ml 550 ml # Bowel Movements 1 Laboratory Tests Test 12/08/16 04:00 White Blood Count 7.9 K/UL (4.8-10.8) Red Blood Count 5.56 M/UL (4.20-5.40) H Hemoglobin 13.4 G/DL (12.0-16.0) Hematocrit 41.8 % (37.0-47.0) Mean Corpuscular Volume 75 FL (80-99) L Mean Corpuscular Hemoglobin 24.2 PG (27.0-31.0) L Mean Corpuscular Hemoglobin Concent 32.1 G/DL (32.0-36.0) Red Cell Distribution Width 14.0 % (11.6-14.8) Platelet Count 242 K/UL (150-450) Mean Platelet Volume 8.4 FL (6.5-10.1) Neutrophils (%) (Auto) 69.0 % (45.0-75.0) Lymphocytes (%) (Auto) 19.0 % (20.0-45.0) L Monocytes (%) (Auto) 6.3 % (1.0-10.0) Eosinophils (%) (Auto) 4.6 % (0.0-3.0) H Basophils (%) (Auto) 1.1 % (0.0-2.0) Sodium Level 139 mEQ/L (135-145) Potassium Level 3.9 mEQ/L (3.4-4.9) Chloride Level 99 mEQ/L (98-107) Carbon Dioxide Level 25 mEQ/L (20-30) Anion Gap 15 (5-15) Blood Urea Nitrogen 13 mg/dL (7-23) Creatinine 0.6 mg/dL (0.5-0.9) Estimat Glomerular Filtration Rate mL/min (>60) Glucose Level 114 mg/dL (74-106) H Uric Acid 5.9 mg/dL (3.0-7.5) Calcium Level 9.1 mg/dL (8.6-10.2) Phosphorus Level 3.1 mg/dL (2.5-4.8) Magnesium Level 1.5 mg/dL (1.7-2.5) L Iron Level 34 ug/dL (37-145) L Total Iron Binding Capacity 191 ug/dL (250-400) L Percent Iron Saturation 18 % (15-50) Unsaturated Iron Binding 157 ug/dL (112-346) Ferritin 163 ng/mL (13-150) H Total Bilirubin 0.3 mg/dL (0.0-1.2) Aspartate Amino Transf (AST/SGOT) 10 U/L (5-40) Alanine Aminotransferase (ALT/SGPT) 10 U/L (3-33) Alkaline Phosphatase 71 U/L (35-104) C-Reactive Protein, Quantitative 5.5 mg/dL (< 0.5) H Pro-B-Type Natriuretic Peptide 2469 pg/mL (0-450) H Total Protein 6.9 g/dL (6.6-8.7) Albumin 3.4 g/dL (3.5-5.2) L Globulin 3.5 g/dL Albumin/Globulin Ratio 0.9 (1.0-2.7) L Folate Pending ANTWAN FERREIRA Dec 08, 2016 21:05
[2016-12-09] VITALS: BP 130/57
[2016-12-09 04:00] VITALS: BP 125/79
[2016-12-09] MEDS: Norco 5mg/325mg tab ORAL PRN ×3 (05:30→22:02)
[2016-12-09 08:00] VITALS: BP 144/96
[2016-12-09] MEDS: Aspirin Baby 81mg ORAL SCH (09:20)
[2016-12-09] MEDS: Carvedilol 12.5mg tab ORAL SCH ×2 (09:20→21:56)
--- NOTE | 2016-12-09 09:57 | General Progress Note ---
Assessment/Plan Status: not improved Status Narrative mdd, recurrent, mod Leaxapro 10mg po qam ro/st Subjective Date patient seen: Dec 08, 2016 Constitutional: Reports: weakness Neurologic/Psychiatric: Reports: anxiety, depressed, emotional problems Allergies: Coded Allergies: MORPHINE (Verified Allergy, Severe, Hives, 10/12/12) HIVES Objective Last 24 Hour Vital Signs Date Time Temp Pulse Resp B/P Pulse Ox O2 Delivery O2 Flow Rate FiO2 12/09/16 09:20 103 146/79 12/09/16 08:00 97.8 90 20 144/96 93 Room Air 12/09/16 04:00 97.7 79 22 125/79 98 Room Air 12/09/16 04:00 77 12/09/16 00:00 98.2 82 18 130/57 96 Room Air 12/09/16 00:00 79 12/08/16 21:05 102 156/110 12/08/16 20:00 97.4 102 20 156/110 99 Room Air 12/08/16 20:00 87 12/08/16 19:42 94 Room Air 21 12/08/16 19:42 Room Air 12/08/16 19:41 84 18 Room Air 21 12/08/16 16:22 84 12/08/16 16:00 98.1 90 18 154/93 93 Room Air 12/08/16 12:00 97.5 78 20 136/75 94 Room Air 12/08/16 11:54 85 Intake and Output 12/08/16 12/09/16 19:00 07:00 Intake Total 340 ml 240 ml Output Total 0 ml Balance 340 ml 240 ml Intake Oral 240 ml 240 ml IV Total 100 ml Output Urine Total 0 ml # Voids 8 3 # Bowel Movements 2 Height (Feet): 5 Height (Inches): 6.00 Weight (Pounds): 166 General Appearance: no apparent distress, alert, overweight Neurologic: alert, oriented x 3, responsive, depressed affect Erik Taylor M.D. Dec 09, 2016 09:57
--- NOTE | 2016-12-09 10:26 | Diagnostic Imaging Report ---
Indications: Fall, back pain, L1 vertebral body compression fracture--age indeterminate Technique: 26.2 mCi 99 M technetium-MDP were administered intravenously. Planar imaging of the entire body was performed the multiple projections 3 hours later. Findings: Comparison: CT abdomen pelvis 12/05/16; CT lumbar spine 12/07/16 Focally increased activity is present in the region of the peripheral aspect of the left 12th rib. More diffusely increased activity is present in the regions of both shoulder and knee joints and left ankle joint. Focally increased activity is present in the regions of the bilateral first carpometacarpal joints. No additional foci of increased activity demonstrated, including no increased activity throughout the spine. Soft tissue and renal activity are unremarkable.. IMPRESSION: Lack of increased activity L1 indicates that this fracture is old and healed. Patient is not a candidate for kyphoplasty. Focally increased activity peripheral aspect left 12th rib corresponds to focal deformity seen on earlier CT scan, most likely healing fracture. Multifocal articular increased activity all likely degenerative in nature
--- NOTE | 2016-12-09 11:26 | General Progress Note ---
Assessment/Plan Status: stable Assessment/Plan status; (1) Acute encephalopathy- resolving (2) Atrial fibrillation with RVR, now controlled- (3) ATN (acute tubular necrosis) resolved (4) Hyperkalemia resolved (5) Multiple injuries due to trauma (6) Low back pain, L1 Fx (7) Pacemaker plan: monitor renal parameters and lytes Anemia ricks , iron low- DC planning ? after Ortho eval?? Subjective ROS Limited/Unobtainable: No Constitutional: Reports: malaise Allergies: Coded Allergies: MORPHINE (Verified Allergy, Severe, Hives, 10/12/12) HIVES Objective Last 24 Hour Vital Signs Date Time Temp Pulse Resp B/P Pulse Ox O2 Delivery O2 Flow Rate FiO2 12/09/16 09:20 103 146/79 12/09/16 08:00 97.8 90 20 144/96 93 Room Air 12/09/16 04:00 97.7 79 22 125/79 98 Room Air 12/09/16 04:00 77 12/09/16 00:00 98.2 82 18 130/57 96 Room Air 12/09/16 00:00 79 12/08/16 21:05 102 156/110 12/08/16 20:00 97.4 102 20 156/110 99 Room Air 12/08/16 20:00 87 12/08/16 19:42 94 Room Air 21 12/08/16 19:42 Room Air 12/08/16 19:41 84 18 Room Air 21 12/08/16 16:22 84 12/08/16 16:00 98.1 90 18 154/93 93 Room Air 12/08/16 12:00 97.5 78 20 136/75 94 Room Air 12/08/16 11:54 85 Intake and Output 12/08/16 12/09/16 19:00 07:00 Intake Total 340 ml 240 ml Output Total 0 ml Balance 340 ml 240 ml Intake Oral 240 ml 240 ml IV Total 100 ml Output Urine Total 0 ml # Voids 8 3 # Bowel Movements 2 Height (Feet): 5 Height (Inches): 6.00 Weight (Pounds): 166 General Appearance: no apparent distress Cardiovascular: arrhythmia Objective other exam not changed PROTER BROWN Dec 09, 2016 11:26
[2016-12-09 12:00] VITALS: BP 144/96
[2016-12-09] MEDS ORDERED: AMIODARONE HCL100 MG ORAL (12:36)
[2016-12-09] MEDS ORDERED: COREG12.5 MG ORAL (12:39)
[2016-12-09] MEDS ORDERED: LIDODERM700 M1 TDERMAL (12:39)
[2016-12-09] MEDS ORDERED: ACETAMINOPHEN325 M1 ORAL (12:39)
[2016-12-09] MEDS ORDERED: NORCO 5-325 TA1 EACH ORAL (12:39)
[2016-12-09] MEDS ORDERED: ASPIRIN81 MG ORAL (12:39)
[2016-12-09] MEDS ORDERED: NEURONTIN300 MG ORAL (12:39)
--- NOTE | 2016-12-09 12:42 | Pulmonology Progress Note ---
Assessment/Plan Problems: (1) L1 vertebral fracture (2) Acute encephalopathy (3) Atrial fibrillation with RVR (4) ATN (acute tubular necrosis) (5) Hyperkalemia (6) Multiple injuries due to trauma (7) Low back pain (8) Pacemaker Assessment/Plan Nuclear study showed no uptake, old fracture, not a candidate for Kyphoplasty heart rate better bp better no anticoagulation,ontraindicated b/o episodes of fall, maybe just aspirin check CT of spine showed L1 fracture Spine surgeon contacted, Dr. Bell, outpatient f/u she can be discharged to rehab today d/w Subjective ROS Limited/Unobtainable: No Interval Events: no new complains Allergies: Coded Allergies: MORPHINE (Verified Allergy, Severe, Hives, 10/12/12) HIVES Objective Last 24 Hour Vital Signs Date Time Temp Pulse Resp B/P Pulse Ox O2 Delivery O2 Flow Rate FiO2 12/09/16 09:20 103 146/79 12/09/16 08:00 97.8 90 20 144/96 93 Room Air 12/09/16 04:00 97.7 79 22 125/79 98 Room Air 12/09/16 04:00 77 12/09/16 00:00 98.2 82 18 130/57 96 Room Air 12/09/16 00:00 79 12/08/16 21:05 102 156/110 12/08/16 20:00 97.4 102 20 156/110 99 Room Air 12/08/16 20:00 87 12/08/16 19:42 94 Room Air 21 12/08/16 19:42 Room Air 12/08/16 19:41 84 18 Room Air 12/08/16 16:22 84 12/08/16 16:00 98.1 90 18 154/93 93 Room Air Intake and Output 12/08/16 12/09/16 19:00 07:00 Intake Total 340 ml 240 ml Output Total 0 ml Balance 340 ml 240 ml Intake Oral 240 ml 240 ml IV Total 100 ml Output Urine Total 0 ml # Voids 8 3 # Bowel Movements 2 General Appearance: WD/WN HEENT: normocephalic, atraumatic Respiratory/Chest: chest wall non-tender, lungs clear Breasts: no masses Cardiovascular: normal peripheral pulses, normal rate Abdomen: normal bowel sounds, soft, non tender Genitourinary: normal external genitalia Extremities: no cyanosis Skin: no rash Neurologic/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: 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 normal Lymphatic: no neck adenopathy Current Medications Medications (Trade) Dose Ordered Sig/S[place] Route PRN Reason Start Time Stop Time Status Last Admin Dose Admin Acetaminophen (Tylenol) 650 mg Q4H PRN ORAL fever 12/08/16 18:00 01/07/17 17:59 Acetaminophen/ Hydrocodone Bitart ([place] 5/325) 1 tab Q4H PRN ORAL Unrelieved Moderate Pain (4-6) 12/08/16 18:00 12/15/16 17:59 12/09/16 05:30 Albuterol/ Ipratropium (DuoNeb 0.5-3(2.5)mg/3ml) 3 ml Q4H PRN HHN Shortness of Breath 12/08/16 18:00 12/13/16 17:59 Aspirin (ASA) 81 mg DAILY ORAL 12/09/16 09:00 01/08/17 08:59 12/09/16 09:20 Carvedilol (Coreg) 12.5 mg EVERY 12 HOURS ORAL 12/08/16 21:00 01/07/17 20:59 12/09/16 09:20 Clonidine HCl (Catapres) 0.1 mg Q4H PRN ORAL SBP > 160 12/08/16 18:00 01/07/17 17:59 Dextrose (Dextrose 50%) STAT PRN IV Hypoglycemia 12/08/16 18:00 01/07/17 17:59 Escitalopram Oxalate (Lexapro) 10 mg DAILY ORAL 12/09/16 09:00 01/08/17 08:59 12/09/16 09:20 Gabapentin (Neurontin) 300 mg BID ORAL 12/09/16 09:00 01/08/17 08:59 12/09/16 09:20 Lidocaine (Lidoderm 5% PATCH) 1 patch DAILY TDERMAL 12/09/16 09:00 01/08/17 08:59 12/09/16 09:24 Lorazepam (Ativan 2mg/ml 1ml) 0.5 mg Q4H PRN IV For Anxiety 12/08/16 18:00 12/15/16 17:59 Nitroglycerin (Ntg) 0.4 mg Q5M X 3 DOSES PRN SL Prn Chest Pain 12/08/16 18:00 01/07/17 17:59 Ondansetron HCl (Zofran) 4 mg Q6H PRN IVP Nausea & Vomiting 12/08/16 18:00 01/07/17 17:59 Pantoprazole (Protonix) 40 mg DAILY ORAL 12/09/16 09:00 01/08/17 08:59 12/09/16 09:21 Polyethylene Glycol (Miralax) 17 gm HSPRN PRN ORAL Constipation 12/08/16 18:00 01/07/17 17:59 Temazepam (Restoril) 15 mg HSPRN PRN ORAL Insomnia 12/08/16 20:45 12/15/16 20:44 Tizanidine HCl (Zanaflex) 4 mg DAILYPRN PRN ORAL For Pain 12/08/16 18:00 01/07/17 17:59 NIKO HARVEY Dec 09, 2016 12:42
--- NOTE | 2016-12-09 13:15 | Progress Note ---
SUBJECTIVE: The patient is doing well and engaged. She stated that the Lexapro is working better for her Xanax. She does not feel tired during the day. Compliant with medications. Sleep and appetite is adequate. MENTAL STATUS EXAMINATION: Alert and oriented x3. Mood is neutral. Affect is constricted. Congruent mood. Thought process is linear. Thought content, there is no suicidal or homicidal ideation. ASSESSMENT: Major depressive disorder and anxiety disorder. PLAN: 1. The patient will be continued on Lexapro. 2. Avoid prescribing benzodiazepines. 3. We will continue to follow and readjust the medication. Erik Taylor M.D. DR: Huan JOB#: [id number] CC:
[2016-12-09 16:00] VITALS: BP 144/86
--- NOTE | 2016-12-09 19:54 | Cardiology Progress Note ---
Assessment/Plan Problem List: (1) Atrial fibrillation with RVR (2) Low back pain (3) Multiple injuries due to trauma (4) L1 vertebral fracture (5) Hypertension Status: stable, progressing Status Narrative Permanent AF - RVR on adm Falls w/ injury, L1 fracture Assessment/Plan Ventricular rates now stable on coreg 12.5 mg bid No anticoagulation due to fall/bleeding risk. Agree w/ dc plan to rehab center Subjective ROS Limited/Unobtainable: No Subjective Pt appears comfortable. Events noted Objective Last 24 Hour Vital Signs Date Time Temp Pulse Resp B/P Pulse Ox O2 Delivery O2 Flow Rate FiO2 12/09/16 16:00 97.3 82 20 144/86 97 Room Air 12/09/16 16:00 94 12/09/16 14:23 97.8 12/09/16 12:00 97.5 93 20 144/96 93 Room Air 12/09/16 12:00 110 12/09/16 09:20 103 146/79 12/09/16 08:00 97.8 90 20 144/96 93 Room Air 12/09/16 08:00 107 12/09/16 04:00 97.7 79 22 125/79 98 Room Air 12/09/16 04:00 77 12/09/16 00:00 98.2 82 18 130/57 96 Room Air 12/09/16 00:00 79 12/08/16 21:05 102 156/110 12/08/16 20:00 97.4 102 20 156/110 99 Room Air 12/08/16 20:00 87 General Appearance: WD/WN, no apparent distress, alert Neck: supple, no JVD Rhythm: Afib Cardiovascular: normal rate, no gallop/murmur Respiratory/Chest: lungs clear Abdomen: non tender, soft Extremities: no swelling Intake and Output 12/08/16 12/09/16 19:00 07:00 Intake Total 340 ml 240 ml Output Total 0 ml Balance 340 ml 240 ml Intake Oral 240 ml 240 ml IV Total 100 ml Output Urine Total 0 ml # Voids 8 3 # Bowel Movements 2 ANTWAN FERREIRA Dec 09, 2016 19:54
[2016-12-09 20:00] VITALS: BP 132/76
[2016-12-10 00:22] VITALS: BP 99/63
[2016-12-10 03:54] VITALS: BP 132/75
[2016-12-10] MEDS: Norco 5mg/325mg tab ORAL PRN (06:48)
[2016-12-10] MEDS ORDERED: LEXAPRO10 MG ORAL (08:12)
[2016-12-10] MEDS ORDERED: TIZANIDINE HCL4 MG ORAL (08:12)
[2016-12-10 08:15] VITALS: BP 154/102
[2016-12-10 09:00] VITALS: BP 154/102
[2016-12-10] MEDS: Carvedilol 12.5mg tab ORAL SCH (09:00)
[2016-12-10] MEDS: Aspirin Baby 81mg ORAL SCH (09:00)
[2016-12-10] MEDS ORDERED: NS 275ml ONE (10:24)
[2016-12-10] MEDS ORDERED: Tubing IV Secondary IV ONE (10:24)
--- NOTE | 2016-12-10 10:39 | General Progress Note ---
Assessment/Plan Status: stable Status Narrative has lumbar brace now Assessment/Plan status; (1) Acute encephalopathy- resolving (2) Atrial fibrillation with RVR, now controlled- (3) ATN (acute tubular necrosis) resolved (4) Hyperkalemia resolved (5) Multiple injuries due to trauma (6) Low back pain, L1 Fx (7) Pacemaker plan: monitor renal parameters and lytes Anemia ricks , iron low- DC planning ? Subjective Date patient seen: Dec 10, 2016 Time patient seen: 09:00 ROS Limited/Unobtainable: No Allergies: Coded Allergies: MORPHINE (Verified Allergy, Severe, Hives, 10/12/12) HIVES Objective Last 24 Hour Vital Signs Date Time Temp Pulse Resp B/P Pulse Ox O2 Delivery O2 Flow Rate FiO2 12/10/16 09:00 89 154/102 12/10/16 08:15 97.9 89 18 154/102 95 Room Air 12/10/16 07:47 98.6 12/10/16 04:00 87 12/10/16 03:54 98.6 84 18 132/75 94 Room Air 12/10/16 00:22 97.5 84 20 99/63 93 Room Air 12/10/16 00:00 93 12/09/16 21:56 89 132/70 12/09/16 20:00 97.7 93 18 132/76 95 Room Air 12/09/16 20:00 92 12/09/16 19:33 88 18 Room Air 12/09/16 19:33 Room Air 12/09/16 19:33 97 Room Air 12/09/16 16:00 97.3 82 20 144/86 97 Room Air 12/09/16 16:00 94 12/09/16 12:00 97.5 93 20 144/96 93 Room Air 12/09/16 12:00 110 Intake and Output 12/09/16 12/10/16 19:00 07:00 Intake Total 180 ml Output Total 350 ml 580 ml Balance -350 ml -400 ml Intake Oral 180 ml Output Urine Total 350 ml 580 ml # Voids 1 3 Height (Feet): 5 Height (Inches): 6.00 Weight (Pounds): 166 General Appearance: no apparent distress Objective other exam not changed PORTER BROWN Dec 10, 2016 10:39
--- NOTE | 2016-12-10 12:20 | Pulmonology Progress Note ---
Assessment/Plan Problems: (1) L1 vertebral fracture (2) Acute encephalopathy (3) Atrial fibrillation with RVR (4) ATN (acute tubular necrosis) (5) Hyperkalemia (6) Multiple injuries due to trauma (7) Low back pain (8) Pacemaker Assessment/Plan Nuclear study showed no uptake, old fracture, not a candidate for Kyphoplasty heart rate better bp better discharged delayed yesterday dc to rehab for acute PT. d/w Subjective ROS Limited/Unobtainable: No Constitutional: Reports: no symptoms HEENT: Repors: no symptoms Allergies: Coded Allergies: MORPHINE (Verified Allergy, Severe, Hives, 10/12/12) HIVES Objective Last 24 Hour Vital Signs Date Time Temp Pulse Resp B/P Pulse Ox O2 Delivery O2 Flow Rate FiO2 12/10/16 09:00 89 154/102 12/10/16 08:15 97.9 89 18 154/102 95 Room Air 12/10/16 08:09 88 12/10/16 07:47 98.6 12/10/16 04:00 87 12/10/16 03:54 98.6 84 18 132/75 94 Room Air 12/10/16 00:22 97.5 84 20 99/63 93 Room Air 12/10/16 00:00 93 12/09/16 21:56 89 132/70 12/09/16 20:00 97.7 93 18 132/76 95 Room Air 12/09/16 20:00 92 12/09/16 19:33 88 18 Room Air 12/09/16 19:33 Room Air 12/09/16 19:33 97 Room Air 12/09/16 16:00 97.3 82 20 144/86 97 Room Air 12/09/16 16:00 94 Intake and Output 12/09/16 12/10/16 19:00 07:00 Intake Total 180 ml Output Total 350 ml 580 ml Balance -350 ml -400 ml Intake Oral 180 ml Output Urine Total 350 ml 580 ml # Voids 1 3 General Appearance: WD/WN HEENT: normocephalic, atraumatic, anicteric Respiratory/Chest: chest wall non-tender, lungs clear, normal breath sounds Cardiovascular: normal peripheral pulses, normal rate Abdomen: normal bowel sounds, soft, non tender, no organomegaly Neurologic/Psychiatric: cto II-XII grossly normal, no motor/sensory deficits NIKO HARVEY Dec 10, 2016 12:20
--- NOTE | 2016-12-11 00:30 | Progress Note ---
SUBJECTIVE: The patient is doing well. No behavior issues. Calm and cooperative, doing well. Mental status is unchanged since previous encounter. Depression is improving. MENTAL STATUS EXAMINATION: Alert and oriented x3. Mood is depressed. Affect is constricted. Congruent mood. Thought process is concrete. Thought content, no suicidal or homicidal ideation. ASSESSMENT: Major depressive disorder, stable. PLAN: The patient will be continued on current medications. Provide the patient with supportive therapy and reality orientation. Erik Taylor M.D. DR: Josh JOB#: [id number] CC:
--- NOTE | 2016-12-13 08:48 | Discharge Summary ---
Discharge Summary Hospital Course Date of Admission Dec 05, 2016 at 16:24 Date of Discharge Dec 10, 2016 at 10:30 Admitting Diagnosis gen.weakness, A-fib with rapid ventricular responc HPI Marly Verma is a 76 year old female who was admitted on Dec 05, 2016 at 16:24 for Generalizaed [place], Rapid Atrial Fibrillation Hospital Course dc summary #[id number] Discharge Medications New Medications: Amiodarone Hcl (Amiodarone Hcl) 100 Mg Tablet 200 MG ORAL DAILY for 30 Days, TAB Acetaminophen* (Acetaminophen 325MG Tablet*) 325 Mg Tablet 650 MG ORAL Q4H PRN for 30 Days, TAB Aspirin* (Aspirin*) 81 Mg Tab.chew 81 MG ORAL DAILY for 30 Days, TAB Gabapentin (Neurontin) 300 Mg Capsule 300 MG ORAL BID for 30 Days, CAP Hydrocodone Bit/Acetaminophen 5-325* ([place] 5-325*) 1 Each Tablet 1 TAB ORAL Q4H PRN for 30 Days, TAB Lidocaine (Lidoderm) 1 Each Adh..patch 1 PATCH TDERMAL DAILY for 10 Days, PATCH Continued Medications: Alprazolam* (Xanax*) 0.25 Mg Tablet 1 MG ORAL TID Carvedilol (Coreg) 6.25 Mg Tab 6.25 MG ORAL EVERY 12 HOURS, #60 TAB Cyclobenzaprine Hcl* (Flexeril*) 10 Mg Tablet 10 MG ORAL BID, TAB Escitalopram Oxalate* (Lexapro*) 10 Mg Tablet 10 MG ORAL DAILY, TAB Tizanidine Hcl (Zanaflex*) 4 Mg Tablet 4 MG ORAL PRN for For Pain, TAB 0 Refills Zolpidem Tartrate* (Ambien*) 5 Mg Tablet 5 MG ORAL BEDTIME Discontinued Medications: Amlodipine Besylate (Norvasc) 5 Mg Tab 5 MG ORAL BID, #60 TAB Clonidine HCl (Clonidine HCl) 0.1 Mg Tab 0.1 MG ORAL BID, TAB Lisinopril (Lisinopril*) 5 Mg Tablet 10 MG ORAL DAILY, TAB Spironolact/Hydrochlorothiazid (Spironolactone-Hctz 25-25 Tab) 1 Each Tablet 1 TAB ORAL DAILY, TAB Discharge Condition Upon Discharge: stable Discharge Disposition Patient was discharged to SNF/Subacute Facility(03) Discharge Diagnoses: Discharge Instructions Discharge Instructions Special Instructions I have been assigned to complete a D/C Summary on this account. I was not involved in the patient management Sudhir (Viviane Mercado NP Dec 13, 2016 08:48
--- NOTE | 2016-12-14 01:01 | Discharge Summary 2 SIG ---
DATE OF ADMISSION: 12/05/2016 DATE OF DISCHARGE: 12/10/2016 REASON FOR ADMISSION: The patient is a 76-year-old female presented to emergency room with a low back pain and bilateral knee pain after a fall. Family reported recurrent fall. The patient had difficulty ambulating after the fall. The patient also has osteoarthritis of cervical spine. Workup in the emergency room revealed on EKG atrial fibrillation with rapid ventricular response. Heart rate was 128. Blood pressure was low 89/57. The patient was given IV digoxin in the emergency department with improvement in heart rate along with Cardizem. The patient was given Kayexalate for hyperkalemia. Potassium was 5.7. Urinalysis was negative for evidence of urinary tract infection. Troponin negative. A mild leukocytosis 11.5, stable hemoglobin and hematocrit. BUN 33, creatinine 0.9, sodium 133, and potassium 5.7. The patient admitted for further management. ADMITTING DIAGNOSES: Include: 1. Atrial fibrillation with rapid ventricular response. 2. Acute kidney injury plus possible acute tubular necrosis. 3. Hyperkalemia. 4. Recurrent falls. 5. Slightly chronic low back pain. 6. Multiple soft tissue injury secondary to fall. 7. Pacemaker status post recent interrogation. HOSPITAL COURSE: The patient admitted initially to [facility]. Cardiology consult was requested. Rate control was done with beta-mary and amiodarone. Antihypertensive medication such as calcium channel mary and clonidine stopped due to the low blood pressure. No anticoagulation except aspirin secondary to recurrent falls. Echocardiogram revealed preserved ejection fraction of 55% and severe biatrial enlargement. Mild leukocytosis present then resolved. Blood culture negative. Urinalysis negative. Potassium down to 3.9 after treatment for hyperkalemia. Neurology consult was requested. Neurologist ordered CT of the head which was negative for any acute intracranial pathology, but showed old age related changes. Neurologist also ordered rib cage series which revealed old healed fracture deformity on the right anterior six ribs. No acute fracture. No gross pneumothorax. There was also fracture deformity of the anterior aspect of the tenth rib near costochondral junction likely not acute . No definite acute fracture. No gross pneumothorax. Noted compression fracture deformity of the L1 vertebral body. Spine CT also revealed L1 burst compression fracture resulting in about 50% height loss anteriorly. Subsequently, Radiology recommended to do bone scan and bone scan revealed lack of increased activity and L1 indicating that this fracture was old and healed. The patient was not a candidate for kyphoplasty. The patient started to work with physical and occupational therapy. Fall precaution maintained. Neurologist recommended to decrease use of opiates and the patient started on Neurontin and anti-inflammatory for the pain management. Initially CT of the abdomen and pelvis done, revealed no evidence of acute abdominal pelvic pathology and also initially x-ray of the both knees were done. X-ray of the right knee revealed no evidence of acute abnormality but showed the degenerative arthropathy. X-ray of the left knee revealed suprapatellar effusion, nonspecific. No other evidence of acute abnormality. Psychiatrist seen the patient due to the history of depression and diagnosed her with major depression disorder. Started the patient on low dose of Lexapro provided supportive therapy and reality orientation. Prior to discharge, the patient able to ambulate with physical and occupational therapy. No further fall. Her mental status improved with decreased use of opiates. Lipid panel was within normal limits. BUN down to 13 and creatinine down to 0.6. The patient was stable for discharge to [facility] for PT/OT services. DISCHARGE MEDICATIONS: See medication reconciliation list. DISCHARGE INSTRUCTIONS: The patient discharged to [facility] facility for PT/OT services. FOLLOWUP: Follow up with medical doctor at the facility. Seven Gomez M.D. I have been assigned to dictate discharge summary on this account and I was not involved in the patient's management. Viviane yatesyas NToni MARES: EVAN JOB#: [id number] CC:
== END 2016-12-10 10:30 | DRG 308 ==
LOC: EDBD 14:15 → EMR 14:44 → EDBEDREQ 16:10 → 2E 16:24 → EDBEDREQ 16:39 → EDBEDREQSVC 17:35 → EDBEDREQ 17:36 → ICU 20:04 → EDBEDREQ 20:16 → 2W 20:20 → 2E 12-08 17:43 → UNDODISIN 12-09 15:45
DX: I48.91 Unspecified atrial fibrillation (principal); G93.40 Encephalopathy, unspecified; N17.0 Acute kidney failure with tubular necrosis; E87.5 Hyperkalemia; J44.9 Chronic obstructive pulmonary disease, unspecified; Z95.0 Presence of cardiac pacemaker; I10 Essential (primary) hypertension; T14.90 Injury, unspecified; W19.XXXA Unspecified fall, initial encounter; F32.9 Major depressive disorder, single episode, unspecified; Z91.81 History of falling; M19.90 Unspecified osteoarthritis, unspecified site; E78.5 Hyperlipidemia, unspecified; E66.9 Obesity, unspecified; F41.9 Anxiety disorder, unspecified; G89.29 Other chronic pain; M54.5 Low back pain; M25.562 Pain in left knee; M25.561 Pain in right knee; Z88.6 Allergy status to analgesic agent; M47.892 Other spondylosis, cervical region; M25.462 Effusion, left knee; Z98.1 Arthrodesis status; G89.4 Chronic pain syndrome; R07.81 Pleurodynia; G47.00 Insomnia, unspecified; S32.019D Unspecified fracture of first lumbar vertebra, subsequent encounter for fracture with routine healing
CPT/HCPCS: 36415; 70450; 71010; 72131; 74176; 78306; 80053; 80061; 81003; 82550; 82553; 82607; 82728; 82746; 83540; 83550; 83605; 83735; 83880; 84100; 84443; 84484; 84550; 85007; 85025; 85610; 85730; 86140; 86850; 86900; 86901; 87040; 87081; 93005; 93306; 93880; 94664; 94760

== ENCOUNTER 2016-12-27 14:06 | Inpatient (IN) | payer MEDICARE, MEDICAID ==
[2016-12-27] VITALS (9 sets, daily range): BP systolic 78–132; BP diastolic 50–91
[~2016-12-27] VITALS: Ht 160 cm; Wt 76.2 kg
[~2016-12-27 14:06] MED LIST changes: +ACETAMINOPHEN325 M1 ORAL; +ALBUTEROL SULF8.5 GM INH; +AMIODARONE HCL100 MG ORAL; +COREG12.5 MG ORAL; +CYCLOBENZAPRINE10 MG ORAL; +DICLOFENAC SODI25 MG ORAL; +DIGOXIN250 MCG ORAL; +DOCUSATE SODIU100 MG ORAL; +LEXAPRO10 MG ORAL; +LIDODERM700 M1 TDERMAL; +LISINOPRIL5 MG ORAL; +NEURONTIN300 MG ORAL; +NORCO 5-325 TA1 EACH ORAL; +SPIRONOLACTONE1 EACH ORAL; +TIZANIDINE HCL4 MG ORAL; +XANAX0.25 MG ORAL; +ZANAFLEX4 MG ORAL
[2016-12-27] MEDS ORDERED: MULTIVITAMINS1 EAC8 ORAL (14:21)
[2016-12-27] MEDS ORDERED: MILK OF MA400 MG/51 ORAL (14:23)
[2016-12-27] MEDS ORDERED: BISACODYL5 MG RC (14:24)
[2016-12-27] MEDS ORDERED: Tubing IV Cassette IV ONE (14:40)
[2016-12-27] MEDS ORDERED: DiphenhydrAMINE 50mg/ml Inj IVP ONE (14:45)
[2016-12-27] MEDS ORDERED: Solu-MEDROL 125mg Inj IVP ONE (14:45)
[2016-12-27] MEDS ORDERED: Albuterol ud Inhalation HHN ONE (14:45)
[2016-12-27 15:02] LABS: MEAN CORPUSCULAR HEMOGLOBIN 23.9 PG (27.0-31.0); MEAN CORPUSCULAR HGB CONC 30.1 G/DL (32.0-36.0); MEAN CORPUSCULAR VOLUME 79 FL (80-99); MEAN PLATELET VOLUME 9.4 FL (6.5-10.1); PLATELET COUNT 78 K/UL (150-450); RED BLOOD COUNT 5.56 M/UL (4.20-5.40); RED CELL DISTRIBUTION WIDTH 14.9 % (11.6-14.8); WHITE BLOOD COUNT 6.7 K/UL (4.8-10.8)
[2016-12-27 15:18] LABS: ALANINE AMINOTRANSFERASE 10 U/L (3-33); ALBUMIN/GLOBULIN RATIO 1.2 (1.0-2.7); ANION GAP 10 (5-15); ASPARTATE AMINO TRANSFERASE 12 U/L (5-40); CALCIUM 8.9 mg/dL (8.6-10.2); CARBON DIOXIDE 27 mEQ/L (20-30); CHLORIDE 97 mEQ/L (98-107); CREATININE 0.7 mg/dL (0.5-0.9); HEMOLYSIS 9; POTASSIUM 4.5 mEQ/L (3.4-4.9); SODIUM 134 mEQ/L (135-145); TOTAL PROTEIN 6.6 g/dL (6.6-8.7)
--- NOTE | 2016-12-27 15:19 | Emergency Room Report ---
History of Present Illness General Chief Complaint: Allergic Reaction Source: Patient, Medical Record Present Illness HPI This patient presents from a [facility] facility. There is concern that she had an allergic reaction to a new medication. The patient has a history of atrial fibrillation, coronary artery disease, pacemaker and generalized muscle weakness. Around 5 AM this morning she was given Zanaflex. She states she developed swelling around 9:30 this morning. She states that her tongue still feels swollen. She feels a little short of breath. She denies difficulty breathing. However, she states that she was unable to swallow food and get it has her tongue. She denies chest pain. She denies abdominal pain. She denies headache. She has no other complaints. Allergies: Coded Allergies: MORPHINE (Verified Allergy, Severe, Hives, 10/12/12) HIVES Patient History Past Medical History: see triage record, HTN, [place], CAD, AFib, COPD, dementia, renal disease Past Surgical History: pacemaker Social History: Denies: alcohol use, drug use, smoking Reviewed Nursing Documentation: PMH: Agreed, PSxH: Agreed Nursing Documentation-PMH Past Medical History: No History, Except For Hx Cardiac Problems: Yes - Afib Hx Hypertension: Yes Hx Pacemaker: Yes - Pacemaker inserted in left chest in August 24, 2016 Hx Asthma: Yes Hx COPD: Yes - Osteoarthritis Hx Cancer: No Hx Gastrointestinal Problems: No Hx Neurological Problems: Yes - Muscle weakness, polyneuropathy Hx Dementia: Yes Hx Alzheimer's Disease: Yes Hx Headaches: Yes Review of Systems All Other Systems: negative except mentioned in HPI Physical Exam Vital Signs Date Time Temp Pulse Resp B/P Pulse Ox O2 Delivery O2 Flow Rate FiO2 12/27/16 14:07 97.2 91 16 96/62 91 Room Air 2.0 12/27/16 14:49 28 Sp02 EP Interpretation: reviewed, normal General Appearance: no apparent distress, alert, GCS 15, non-toxic Head: normocephalic, atraumatic Eyes: bilateral eye PERRL, bilateral eye normal inspection ENT: hearing grossly normal, normal pharynx, no angioedema, uvula midline, tonsillar swelling - mild tongue swelling, slightly garbled speech. Neck: full range of motion, supple/symm/no masses Respiratory: chest non-tender, lungs clear, normal breath sounds, no respiratory distress, no retraction, no accessory muscle use, speaking full sentences Cardiovascular #1: regular rate, rhythm, no edema Gastrointestinal: normal bowel sounds, non tender, soft, non-distended, no guarding, no rebound Rectal: deferred Musculoskeletal: back normal, normal range of motion, non-tender Neurologic: alert, oriented x3, responsive, motor strength/tone normal, sensory intact, speech normal Psychiatric: judgement/insight normal, memory normal, mood/affect normal, no suicidal/homicidal ideation Skin: normal color, warm/dry, well hydrated, other - Erythematous rash on bilteral thighs. follicular and maculopapular. Medical Decision Making Diagnostic Impression: Primary Impression: Angio-edema ER Course This patient presented with possible angioedema. The only new contact, was apparently is anaphylaxis pain. The patient associated symptoms with this medication. She reports, swelling. The tongue is mildly swollen on examination , but not protruding or blocking the airway. The patient's posterior oropharynx was clear. The patient's lung exam was also clear. However, given the history, I went ahead and gave Benadryl IV, Solu-Medrol IV and gave the patient a breathing treatment. She will be admitted to the [facility] for further airway monitoring and further evaluation and treatment. Patient was initially hypotensive but responded well to IV fluids. She was admitted to the ICU step down. This patient is critically ill. This patient required complex medical decision- making, aggressive intervention, extensive laboratory workup and monitoring. Critical care time: 40 minutes. Labs Test 12/27/16 14:40 White Blood Count 6.7 K/UL (4.8-10.8) Red Blood Count 5.56 M/UL (4.20-5.40) Hemoglobin 13.3 G/DL (12.0-16.0) Hematocrit 44.2 % (37.0-47.0) Mean Corpuscular Volume 79 FL (80-99) Mean Corpuscular Hemoglobin 23.9 PG (27.0-31.0) Mean Corpuscular Hemoglobin Concent 30.1 G/DL (32.0-36.0) Red Cell Distribution Width 14.9 % (11.6-14.8) Platelet Count 78 K/UL (150-450) Mean Platelet Volume 9.4 FL (6.5-10.1) Neutrophils (%) (Auto) % (45.0-75.0) Lymphocytes (%) (Auto) % (20.0-45.0) Monocytes (%) (Auto) % (1.0-10.0) Eosinophils (%) (Auto) % (0.0-3.0) Basophils (%) (Auto) % (0.0-2.0) Differential Total Cells Counted 100 Neutrophils % (Manual) 56 % (45-75) Lymphocytes % (Manual) 30 % (20-45) Monocytes % (Manual) 3 % (1-10) Eosinophils % (Manual) 9 % (0-3) Basophils % (Manual) 2 % (0-2) Band Neutrophils 0 % (0-8) Platelet Estimate Decreased Platelet Morphology Clumped Platelets 1+ Anisocytosis 1+ Sodium Level 134 mEQ/L (135-145) Potassium Level 4.5 mEQ/L (3.4-4.9) Chloride Level 97 mEQ/L (98-107) Carbon Dioxide Level 27 mEQ/L (20-30) Anion Gap 10 (5-15) Blood Urea Nitrogen 21 mg/dL (7-23) Creatinine 0.7 mg/dL (0.5-0.9) Estimat Glomerular Filtration Rate mL/min (>60) Glucose Level 106 mg/dL (74-106) Calcium Level 8.9 mg/dL (8.6-10.2) Total Bilirubin 0.3 mg/dL (0.0-1.2) Aspartate Amino Transf (AST/SGOT) 12 U/L (5-40) Alanine Aminotransferase (ALT/SGPT) 10 U/L (3-33) Alkaline Phosphatase 62 U/L (35-104) Total Creatine Kinase 17 U/L (26-140) Creatine Kinase MB < 1.5 ng/mL (< 3.8) Creatine Kinase MB Relative Index 8.8 Total Protein 6.6 g/dL (6.6-8.7) Albumin 3.6 g/dL (3.5-5.2) Globulin 3.0 g/dL Albumin/Globulin Ratio 1.2 (1.0-2.7) EKG Diagnostic Results Rate: normal Rhythm: other - A.flutter ST Segments: no acute changes Rhythm Strip Diag. Results EP Interpretation: yes Rate: 80's Rhythm: no PVC's, no ectopy, other Other Impression a.flutter CT/MRI/US Diagnostic Results CT/MRI/US Diagnostic Results : Imaging Test Ordered: CT head Impression No acute intracranial bleed, mass effect or edema. Last Vital Signs Date Time Temp Pulse Resp B/P Pulse Ox O2 Delivery O2 Flow Rate FiO2 12/27/16 14:57 97.2 69 16 78/50 100 Simple Mask 15.0 12/27/16 14:49 28 Disposition: ADMITTED INPATIENT Condition: Critical RYAN ASENCIO D.O. Dec 27, 2016 15:19
[2016-12-27 15:28] LABS: CKMB < 1.5 ng/mL (< 3.8)
[2016-12-27 15:51] LABS: ANISOCYTOSIS 1+; BASOPHILS % (MANUAL) 2 % (0-2); EOSINOPHILS % (MANUAL) 9 % (0-3); LYMPHOCYTES % (MANUAL) 30 % (20-45); NEUTROPHILS % (MANUAL) 56 % (45-75); TOTAL CELLS COUNTED 100
[2016-12-27 15:52] LABS: BAND NEUTROPHILS % (MANUAL) 0 % (0-8); PLATELET ESTIMATE DECREASED
[2016-12-27 15:53] LABS: PLATELET CLUMPS 1+
--- NOTE | 2016-12-27 15:56 | Diagnostic Imaging Report ---
Indications: Slurred speech Technique: Spiral acquisitions obtained through the brain. Angled axial and coronal 5 x 5 mm slices were reconstructed. Total dose length product 1481 mGycm. CTDI vol(s) 70 mGy. Dose reduction achieved using automated exposure control Comparison: 12/07/2016 Findings: Mild age-related enlargement of ventricles and extra-axial CSF spaces is again noted. No acute hemorrhage or edema. No mass effect or midline shift. Normal milian-white differentiation. Unusual soft tissue gas in the deep right infratemporal fossa, probably within veins. Visualized orbits and sinuses are unremarkable. Intact calvarium no significant change Impression: Mild age-related volume loss. Negative for acute intracranial bleed or mass effect The CT scanner at [facility] is accredited by the [employer] [place] and the scans are performed using protocols designed to limit radiation exposure to as low as reasonably achievable to attain images of sufficient resolution adequate for diagnostic evaluation.
--- NOTE | 2016-12-27 15:58 | Diagnostic Imaging Report ---
Indication: SOB Technique: One view of the chest Comparison: 12/05/2016 Findings: Linear bands at the right lung base and left perihilar region made reflect atelectasis or scarring, appears similar to the prior study. Lungs and pleural spaces otherwise clear. Heart size is upper limits of normal. Left chest pacemaker is again demonstrated. Mild degenerative changes of the right shoulder joint are again demonstrated. Surgical hardware seen in the lower neck. Findings are overall unchanged Impression: Minimal right basilar and left perihilar atelectasis No acute process otherwise
[2016-12-27] MEDS ORDERED: LORazepam Inj 2mg/ml 1ml IV PRN (16:30)
[2016-12-27] MEDS ORDERED: DuoNeb 0.5-3(2.5)mg/3ml neb HHN PRN (16:30)
[2016-12-27] MEDS ORDERED: Nitroglycerin Subl 0.4mg tab (Bottle Of 25) SL PRN (16:30)
[2016-12-27] MEDS ORDERED: Zosyn 3.375gm inj ONE (20:56)
[2016-12-27] MEDS ORDERED: Theophylline ER 100mg ORAL SCH (21:00)
[2016-12-27] MEDS ORDERED: Heparin 5000 units/ml inj SUBQ SCH (21:00)
[2016-12-27] MEDS: Zosyn 3.375gm q8h **Extended infusion IVPB SCH ×2 (21:00)
[2016-12-27] MEDS ORDERED: Piperacillin/Tazobactam 2.25 GM in D5W 55 ML IV SCH (22:00)
[2016-12-27] MEDS: Solu-MEDROL 125mg Inj IV SCH (22:12)
[2016-12-27] MEDS: Carvedilol 6.25mg Tab ORAL SCH (22:12)
[2016-12-28 00:01] VITALS: BP 132/87
[2016-12-28 04:00] VITALS: BP 148/88
[2016-12-28] MEDS ORDERED: Zosyn 3.375gm inj ONE (04:53)
[2016-12-28] MEDS: ALPRAZolam 0.5mg tab ORAL PRN ×2 (05:31→15:08)
[2016-12-28] MEDS: Solu-MEDROL 125mg Inj IV SCH (05:31)
[2016-12-28] MEDS: Zosyn 3.375gm q8h **Extended infusion IVPB SCH ×2 (05:32)
[2016-12-28] MEDS ORDERED: Ketorolac 30mg Inj IV PRN (08:00)
[2016-12-28] MEDS ORDERED: Diltiazem 25mg/5ml IV PRN (08:00)
--- NOTE | 2016-12-28 08:27 | History and Physical ---
History of Present Illness General Date patient seen: Dec 28, 2016 Reason for Hospitalization: Allergic Reaction Present Illness HPI 76 year old female with hx of patient has of atrial fibrillation, coronary artery disease, pacemaker and generalized muscle weakness, residing in a care home. She brought in by paramedics with CC of her face and lips. She states that her tongue still feels swollen. She feels a little short of breath. she states that she was unable to swallow food and get it has her tongue. She denies chest pain. She denies abdominal pain. She denies headache. She has no other complaints. It was thought that she had an allergic reaction to meds she got at rehab facility. She had also rapid afib, she is admitted to [facility] for further evaluation. Allergies: Coded Allergies: MORPHINE (Verified Allergy, Severe, Hives, 10/12/12) HIVES Medication History Scheduled Alprazolam* (Xanax*), 1 MG ORAL TID, (Reported) Amiodarone Hcl (Amiodarone Hcl), 200 MG ORAL DAILY Aspirin* (Aspirin*), 81 MG ORAL DAILY, (Reported) Aspirin* (Aspirin*), 81 MG ORAL DAILY Atorvastatin (Lipitor), 80 MG ORAL BEDTIME Carvedilol (Coreg), 6.25 MG ORAL EVERY 12 HOURS Cyclobenzaprine Hcl* (Flexeril*), 10 MG ORAL BID, (Reported) Digoxin* (Digoxin*), 0.25 MG ORAL DAILY, (Reported) Docusate Sodium* (Docusate Sodium*), 100 MG ORAL DAILY, (Reported) Escitalopram Oxalate* (Lexapro*), 10 MG ORAL DAILY, (Reported) Gabapentin (Neurontin), 300 MG ORAL BID Gabapentin* (Gabapentin*), 300 MG PO QHS, (Reported) Lidocaine (Lidoderm), 1 PATCH TDERMAL DAILY Magnesium Hydroxide* (Milk Of Magnesia*), 30 ML ORAL DAILY, (Reported) Multivitamin With Minerals (Multivitamins With Minerals*), 1 TAB ORAL DAILY, ( Reported) Zolpidem Tartrate* (Ambien*), 5 MG ORAL BEDTIME, (Reported) Scheduled PRN Acetaminophen* (Acetaminophen 325MG Tablet*), 650 MG ORAL Q4H PRN Bisacodyl* (Dulcolax*), 10 MG RC DAILY PRN for Constipation, (Reported) Hydrocodone Bit/Acetaminophen 5-325* ([place] 5-325*), 1 TAB ORAL Q4H PRN Tizanidine Hcl (Zanaflex*), 4 MG ORAL for For Pain, (Reported) Tizanidine Hcl* (Zanaflex*), 4 MG ORAL DAILY PRN for For Pain, (Reported) Miscellaneous Medications Lidocaine (Lidoderm), 700 MG TP, (Reported) Patient History Healthcare decision maker Resuscitation status Full Code Advanced Directive on File Past Medical/Surgical History Past Medical/Surgical History: (1) Hypertension (2) L1 vertebral fracture (3) Pacemaker (4) Atrial fibrillation (5) Anemia Review of Systems All Other Systems: negative except mentioned in HPI Physical Exam General Appearance: WD/WN Lines, tubes and drains: peripheral, central line HEENT: normocephalic, atraumatic Neck: non-tender, normal alignment Respiratory/Chest: chest wall non-tender, lungs clear Cardiovascular/Chest: normal peripheral pulses, normal rate Abdomen: normal bowel sounds, non tender Genitourinary/Rectal: normal genital exam, normal rectal exam Extremities: normal range of motion, non-tender Skin Exam: normal pigmentation 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 Last 24 Hour Vital Signs Date Time Temp Pulse Resp B/P Pulse Ox O2 Delivery O2 Flow Rate FiO2 12/28/16 06:33 97 Nasal Cannula 2.0 12/28/16 06:33 89 17 Nasal Cannula 2.0 12/28/16 06:33 Nasal Cannula 2.0 12/28/16 04:00 120 12/28/16 04:00 97.7 89 24 148/88 97 Nasal Cannula 2.0 12/28/16 00:01 97.7 83 20 132/87 97 Nasal Cannula 2.0 12/28/16 00:00 103 12/27/16 23:33 Nasal Cannula 2.0 12/27/16 23:33 95 Nasal Cannula 2.0 12/27/16 23:32 65 16 Nasal Cannula 2.0 12/27/16 22:12 89 132/82 12/27/16 22:00 121 12/27/16 22:00 97.4 89 24 132/82 96 Room Air 12/27/16 20:50 92 17 110/73 100 Room Air 12/27/16 20:50 98.9 92 17 110/73 97 Room Air 12/27/16 19:30 98.0 92 17 91/53 97 Nasal Cannula 2.0 40 12/27/16 18:30 90 20 104/91 97 Nasal Cannula 2.0 12/27/16 17:30 96 18 94/68 97 Nasal Cannula 2.0 12/27/16 16:30 98.0 98 13 110/65 97 Nasal Cannula 2.0 12/27/16 15:21 78 16 84/50 97 Nasal Cannula 12/27/16 15:05 75 16 100 Nasal Cannula 40 12/27/16 14:57 97.2 69 16 78/50 100 Simple Mask 15.0 12/27/16 14:49 75 16 Nasal Cannula 2.0 28 12/27/16 14:49 75 16 96 Nasal Cannula 2.0 28 12/27/16 14:49 28 12/27/16 14:30 97.2 16 96/62 91 Room Air 2.0 12/27/16 14:07 97.2 91 16 96/62 91 Room Air 2.0 Intake and Output 12/27/16 12/28/16 19:00 07:00 Intake Total 3275 ml 55.0 ml Output Total 700 ml Balance 3275 ml -645.0 ml Intake Oral 0 ml IV Total 3275 ml 55.0 ml Output Urine Total 700 ml # Bowel Movements 1 Laboratory Tests Test 12/27/16 14:40 12/28/16 05:00 White Blood Count 6.7 K/UL (4.8-10.8) Red Blood Count 5.56 M/UL (4.20-5.40) H Hemoglobin 13.3 G/DL (12.0-16.0) Hematocrit 44.2 % (37.0-47.0) Mean Corpuscular Volume 79 FL (80-99) L Mean Corpuscular Hemoglobin 23.9 PG (27.0-31.0) L Mean Corpuscular Hemoglobin Concent 30.1 G/DL (32.0-36.0) L Red Cell Distribution Width 14.9 % (11.6-14.8) H Platelet Count 78 K/UL (150-450) L Mean Platelet Volume 9.4 FL (6.5-10.1) Neutrophils (%) (Auto) % (45.0-75.0) Lymphocytes (%) (Auto) % (20.0-45.0) Monocytes (%) (Auto) % (1.0-10.0) Eosinophils (%) (Auto) % (0.0-3.0) Basophils (%) (Auto) % (0.0-2.0) Differential Total Cells Counted 100 Neutrophils % (Manual) 56 % (45-75) Lymphocytes % (Manual) 30 % (20-45) Monocytes % (Manual) 3 % (1-10) Eosinophils % (Manual) 9 % (0-3) H Basophils % (Manual) 2 % (0-2) Band Neutrophils 0 % (0-8) Platelet Estimate Decreased L Platelet Morphology Clumped Platelets 1+ Anisocytosis 1+ Sodium Level 134 mEQ/L (135-145) L Potassium Level 4.5 mEQ/L (3.4-4.9) Chloride Level 97 mEQ/L (98-107) L Carbon Dioxide Level 27 mEQ/L (20-30) Anion Gap 10 (5-15) Blood Urea Nitrogen 21 mg/dL (7-23) Creatinine 0.7 mg/dL (0.5-0.9) Estimat Glomerular Filtration Rate mL/min (>60) Glucose Level 106 mg/dL (74-106) Calcium Level 8.9 mg/dL (8.6-10.2) Total Bilirubin 0.3 mg/dL (0.0-1.2) Aspartate Amino Transf (AST/SGOT) 12 U/L (5-40) Alanine Aminotransferase (ALT/SGPT) 10 U/L (3-33) Alkaline Phosphatase 62 U/L (35-104) Total Creatine Kinase 17 U/L (26-140) L Creatine Kinase MB < 1.5 ng/mL (< 3.8) Creatine Kinase MB Relative Index 8.8 Total Protein 6.6 g/dL (6.6-8.7) Albumin 3.6 g/dL (3.5-5.2) Globulin 3.0 g/dL Albumin/Globulin Ratio 1.2 (1.0-2.7) Digoxin Level 0.4 ng/mL (0.5-2.0) L Height (Feet): 5 Height (Inches): 3.00 Weight (Pounds): 168 Medications Current Medications Medications (Trade) Dose Ordered Sig/Sarmad Route PRN Reason Start Time Stop Time Status Last Admin Dose Admin Albuterol/ Ipratropium (DuoNeb 0.5-3(2.5)mg/3ml) 3 ml Q4H PRN HHN dyspnea 12/27/16 16:30 01/01/17 16:29 Alprazolam (Xanax) 1 mg Q8H PRN ORAL ANXIETY 12/27/16 18:00 01/03/17 17:59 12/28/16 05:31 Amiodarone HCl (Cordarone) 200 mg DAILY ORAL 12/28/16 09:00 01/27/17 08:59 Carvedilol (Coreg) 6.25 mg EVERY 12 HOURS ORAL 12/27/16 21:00 01/26/17 20:59 12/27/16 22:12 Dextrose STAT PRN IV Hypoglycemia 12/27/16 16:30 01/26/17 16:29 Digoxin (Lanoxin) 0.25 mg DAILY ORAL 12/28/16 09:00 01/27/17 08:59 Diltiazem HCl (Cardizem) 10 mg Q1H PRN IV For HR > 120 12/28/16 08:00 01/27/17 07:59 Gabapentin (Neurontin) 300 mg Q12HR ORAL 12/27/16 21:00 01/26/17 20:59 12/27/16 22:12 Lorazepam (Ativan 2mg/ml 1ml) 0.5 mg Q4H PRN IV For Anxiety 12/27/16 16:30 01/03/17 16:29 Methylprednisolone Sodium Succinate (Solu-MEDROL) 60 mg EVERY 6 HOURS IV 12/27/16 21:00 01/26/17 20:59 12/28/16 05:31 Nitroglycerin (Ntg) 0.4 mg Q5M X 3 DOSES PRN SL Prn Chest Pain 12/27/16 16:30 01/26/17 16:29 Ondansetron HCl (Zofran) 4 mg Q6H PRN IVP Nausea & Vomiting 12/27/16 16:30 01/26/17 16:29 Piperacillin Sod/ Tazobactam Sod/ Dextrose (Zosyn/D5W) 110 ml @ 27.5 mls/hr EVERY 8 HOURS IVPB 12/27/16 21:00 01/01/17 20:59 12/28/16 05:32 Temazepam (Restoril) 15 mg HSPRN PRN ORAL Insomnia 12/27/16 21:00 01/03/17 20:59 Theophylline (Stefano-Dur) 100 mg EVERY 12 HOURS ORAL 12/27/16 21:00 01/26/17 20:59 12/27/16 22:12 Assessment/Plan Problem List: (1) Angio-edema ICD Codes: T78.3XXA - Angioneurotic edema, initial encounter SNOMED: 04689236 (2) Uncontrolled atrial fibrillation ICD Codes: I48.91 - Unspecified atrial fibrillation SNOMED: 062021398 (3) Pacemaker ICD Codes: Z95.0 - Presence of cardiac pacemaker SNOMED: 124715695, 561206512 (4) Hypertension ICD Codes: I10 - Essential (primary) hypertension SNOMED: 93019695 Assessment/Plan IV steroids respiratory treatment heart rate control hold aspirin and heparin b/o low plt cardiology to see. NIKO HARVEY Dec 28, 2016 08:27
[2016-12-28] MEDS: Carvedilol 6.25mg Tab ORAL SCH (08:32)
[2016-12-28] MEDS: Amiodarone 200mg tab ORAL SCH (08:32)
[2016-12-28] MEDS ORDERED: Aspirin Baby 81mg ORAL SCH (09:00)
[2016-12-28] MEDS ORDERED: Carvedilol 6.25mg Tab ORAL ONE (10:00)
[2016-12-28 12:00] VITALS: BP 142/85
[2016-12-28] MEDS: Norco 5mg/325mg tab ORAL PRN ×3 (13:04→23:28)
[2016-12-28 16:00] VITALS: BP 142/105
[2016-12-28] MEDS: DiphenhydrAMINE 50mg/ml Inj IVP PRN ×2 (16:47→23:28)
--- NOTE | 2016-12-28 19:33 | Cardiology Progress Note ---
Assessment/Plan Assessment/Plan angioedema related to med perm afib tachy hs of multipl fall and truama increase bb dc soon [id number] Objective Last 24 Hour Vital Signs Date Time Temp Pulse Resp B/P Pulse Ox O2 Delivery O2 Flow Rate FiO2 12/28/16 16:00 97.7 97 20 142/105 97 Nasal Cannula 1.0 12/28/16 16:00 97 12/28/16 14:01 97.0 12/28/16 12:00 97.0 104 22 142/85 94 Nasal Cannula 1.0 12/28/16 12:00 107 12/28/16 10:16 90 143/90 12/28/16 08:32 140 12/28/16 08:32 140 164/80 12/28/16 08:27 130 148/88 12/28/16 08:00 140 12/28/16 06:33 97 Nasal Cannula 2.0 12/28/16 06:33 89 17 Nasal Cannula 2.0 12/28/16 06:33 Nasal Cannula 2.0 12/28/16 04:00 120 12/28/16 04:00 97.7 89 24 148/88 97 Nasal Cannula 2.0 12/28/16 00:01 97.7 83 20 132/87 97 Nasal Cannula 2.0 12/28/16 00:00 103 12/27/16 23:33 Nasal Cannula 2.0 12/27/16 23:33 95 Nasal Cannula 2.0 12/27/16 23:32 65 16 Nasal Cannula 2.0 12/27/16 22:12 89 132/82 12/27/16 22:00 121 12/27/16 22:00 97.4 89 24 132/82 96 Room Air 12/27/16 20:50 92 17 110/73 100 Room Air 12/27/16 20:50 98.9 92 17 110/73 97 Room Air Intake and Output 12/27/16 12/28/16 19:00 07:00 Intake Total 3275 ml 55.0 ml Output Total 700 ml Balance 3275 ml -645.0 ml Intake Oral 0 ml IV Total 3275 ml 55.0 ml Output Urine Total 700 ml # Bowel Movements 1 Laboratory Tests Test 12/28/16 05:00 Digoxin Level 0.4 ng/mL (0.5-2.0) ROGELIO PELAEZ Dec 28, 2016 19:33
[2016-12-28 20:00] VITALS: BP 135/82
[2016-12-28] MEDS: Carvedilol 12.5mg tab ORAL SCH (20:30)
[2016-12-29] VITALS: BP 138/82
--- NOTE | 2016-12-29 00:46 | Consultation ---
DATE OF CONSULTATION: 12/28/2016 CARDIOLOGY CONSULTATION REFERRING PHYSICIAN: Seven Gomez M.D. REASON FOR REFERRAL: Atrial fibrillation, rapid ventricular response. HISTORY OF PRESENT ILLNESS: This is an elderly female with history of multiple medical problems. The patient is a resident of convalescent facility. It appears that because of her constipation, she was administered some type of medication and after she took the medication, she developed swelling of the face and mouth and food pipe. The paramedics were summoned and the patient was transferred to the emergency room at [facility]. It appears that she was given Zanaflex and she had some shortness of breath, but anyway she presented to the emergency room at [facility] with possible angioedema and the patient was given Benadryl, Solu-Medrol, and breathing treatments and subsequently was admitted to the hospital because of her atrial fibrillation with rapid ventricular response, so this consultation requested. She denies any chest pain or pressure. No PND. No orthopnea. No palpitations. No dizziness or lightheadedness. PAST MEDICAL HISTORY: Positive for history of atrial fibrillation, permanent with rapid ventricular response intermittently, history of low back pain, multiple injuries secondary to trauma, vertebral fractures, history of permanent pacemaker implantation previously, history of non-ST elevation myocardial infarction, hypertension, coronary disease, detailed of which are not known, and Alzheimer's dementia. She did have a negative stress test in 2016 here at [place]. SOCIAL HISTORY: She smokes very little and does not drink alcoholic beverages. No use of drugs. REVIEW OF SYSTEMS: Gastrointestinal: Negative except for what was noted with problem with swallowing at times, swelling . : Negative. Pulmonary: Negative. Constitutional: Negative. Neurologic: Negative. PHYSICAL EXAMINATION: GENERAL: Shows to be an elderly female, in no respiratory distress. NECK: Supple. No jugular venous distention. LUNGS: Appear to be clear to auscultation and percussion. CARDIAC: Irregularly irregular. Tachycardic. No RV lifts, heaves, or gallops noted. ABDOMEN: Soft and nontender. Positive bowel sounds. EXTREMITIES: There is no clubbing, cyanosis, nor is there any edema. NEUROLOGIC: She is awake, alert, and responsive. LABORATORY AND DIAGNOSTIC DATA: Laboratory values, white count 6.7, hemoglobin 13, and platelet count of 78,000 down from 242,000. Her sodium is 134, potassium 4.5, chloride 97, bicarbonate of 27, BUN of 21, creatinine 0.7, and glucose of 106. Total CK was only 61 and her digoxin level was 0.4. Her electrocardiogram, actually I am unable to locate the electrocardiogram. Telemetry data shows atrial fibrillation with variable ventricular response, but at times rapid. EKG shows atrial fibrillation/flutter with normal QRS axis and no ST or T-wave abnormalities. ASSESSMENT AND PLAN: 1. Probable angioedema, secondary to medications. 2. Permanent atrial fibrillation. 3. History of permanent pacemaker implantation. 4. History of hypertension. 5. Hyperlipidemia. Dr. Gomez, this patient was seen in cardiac consultation. The patient's data has been reviewed. The patient had an echocardiogram here back in November 2016 showed ejection fraction of 55%, normal LV function, significant biatrial enlargement, dilated IVC, and no significant valvular regurgitation was documented on that study. Her chest x-rays during this hospitalization yesterday shows minimal basilar and left perihilar atelectasis. She has otherwise done well. So far, she has had significant improvement and I would probably continue her on a higher dose of beta-blockers in light of the fact that she is somewhat tachycardic. Based on her prior data, she appears to not be a candidate for chronic anticoagulation, secondary to risks related to a fall and bleeding risk and she will be continued on otherwise her other medication. Bartolome Esquivel M.D. DR: CLARENCE JOB#: [id number] CC:
[2016-12-29 05:13] LABS: BASOPHILS % (AUTO) 0.1 % (0.0-2.0); EOSINOPHILS % (AUTO) 0.1 % (0.0-3.0); LYMPHOCYTES % (AUTO) 12.3 % (20.0-45.0); MEAN CORPUSCULAR HEMOGLOBIN 24.7 PG (27.0-31.0); MEAN CORPUSCULAR HGB CONC 31.1 G/DL (32.0-36.0); MEAN CORPUSCULAR VOLUME 79 FL (80-99); MEAN PLATELET VOLUME 10.3 FL (6.5-10.1); MONOCYTES % (AUTO) 4.7 % (1.0-10.0); NEUTROPHILS % (AUTO) 82.8 % (45.0-75.0); PLATELET COUNT 204 K/UL (150-450); RED BLOOD COUNT 5.52 M/UL (4.20-5.40); RED CELL DISTRIBUTION WIDTH 14.9 % (11.6-14.8); WHITE BLOOD COUNT 11.9 K/UL (4.8-10.8)
[2016-12-29 05:19] LABS: PROTHROMBIN TIME 10.6 SEC (9.30-11.50)
[2016-12-29 05:30] LABS: ALANINE AMINOTRANSFERASE 11 U/L (3-33); ANION GAP 18 (5-15); ASPARTATE AMINO TRANSFERASE 14 U/L (5-40); CALCIUM 9.3 mg/dL (8.6-10.2); CARBON DIOXIDE 22 mEQ/L (20-30); CHLORIDE 100 mEQ/L (98-107); CREATININE 0.6 mg/dL (0.5-0.9); HEMOLYSIS 4; MAGNESIUM 1.8 mg/dL (1.7-2.5); PHOSPHORUS 2.7 mg/dL (2.5-4.8); POTASSIUM 4.3 mEQ/L (3.4-4.9); SODIUM 140 mEQ/L (135-145); TOTAL PROTEIN 7.1 g/dL (6.6-8.7)
[2016-12-29 08:04] VITALS: BP 136/91
[2016-12-29] MEDS: Carvedilol 12.5mg tab ORAL SCH (08:06)
[2016-12-29] MEDS: Norco 5mg/325mg tab ORAL PRN ×2 (08:07→13:13)
[2016-12-29] MEDS: Amiodarone 200mg tab ORAL SCH (08:08)
[2016-12-29] MEDS ORDERED: COREG12.5 MG ORAL (10:39)
[2016-12-29] MEDS ORDERED: BENADRYL50 MG/ML IVP (10:39)
--- NOTE | 2016-12-29 10:44 | Pulmonology Progress Note ---
Assessment/Plan Problems: (1) Angio-edema (2) Uncontrolled atrial fibrillation (3) Pacemaker (4) Hypertension Assessment/Plan improvng cardio consult appreciated meds reviewed physical therapy heart rate controlled coreg was increased Subjective ROS Limited/Unobtainable: No Interval Events: improving Allergies: Coded Allergies: MORPHINE (Verified Allergy, Severe, Hives, 10/12/12) HIVES Objective Last 24 Hour Vital Signs Date Time Temp Pulse Resp B/P Pulse Ox O2 Delivery O2 Flow Rate FiO2 12/29/16 08:08 89 12/29/16 08:06 89 136/91 12/29/16 08:04 97.9 89 22 136/91 96 Nasal Cannula 2.0 12/29/16 08:00 108 12/29/16 07:47 Room Air 12/29/16 07:46 96 Room Air 12/29/16 07:45 96 20 Room Air 21 12/29/16 04:00 95 12/29/16 00:00 97.5 94 24 138/82 96 Nasal Cannula 1.0 12/29/16 00:00 97 12/28/16 20:30 120 151/91 12/28/16 20:13 Room Air 12/28/16 20:13 94 Room Air 12/28/16 20:12 107 20 Room Air 21 12/28/16 20:00 100 12/28/16 20:00 97.5 100 20 135/82 96 Nasal Cannula 1.0 12/28/16 16:00 97.7 97 20 142/105 97 Nasal Cannula 1.0 12/28/16 16:00 97 12/28/16 14:01 97.0 12/28/16 12:00 97.0 104 22 142/85 94 Nasal Cannula 1.0 12/28/16 12:00 107 Intake and Output 12/28/16 12/29/16 19:00 07:00 Intake Total 200 ml Output Total 508 ml Balance -308 ml Intake Oral 200 ml Output Urine Total 508 ml # Voids 9 # Bowel Movements 1 General Appearance: WD/WN HEENT: normocephalic, atraumatic Respiratory/Chest: chest wall non-tender, lungs clear Cardiovascular: normal peripheral pulses, normal rate Abdomen: normal bowel sounds, soft, non tender Extremities: no cyanosis Skin: no rash, no lesions 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0, Activated Partial Thromboplast Time 28, Sodium Level 140, Potassium Level 4.3, Chloride Level 100, Carbon Dioxide Level 22, Anion Gap 18H, Blood Urea Nitrogen 25H, Creatinine 0.6, Estimat Glomerular Filtration Rate , Glucose Level 124H, Calcium Level 9.3, Phosphorus Level 2.7, Magnesium Level 1.8, Total Bilirubin 0.3, Aspartate Amino Transf (AST/SGOT) 14, Alanine Aminotransferase (ALT/SGPT) 11, Alkaline Phosphatase 68, Total Protein 7.1, Albumin 3.7, Globulin 3.4, Albumin/Globulin Ratio 1.0 Current Medications Medications (Trade) Dose Ordered Sig/Sarmad Route PRN Reason Start Time Stop Time Status Last Admin Dose Admin Acetaminophen/ Hydrocodone Bitart ([place] 5/325) 1 tab Q6H PRN ORAL For Pain 12/28/16 08:30 01/04/17 08:29 12/29/16 08:07 Albuterol/ Ipratropium (DuoNeb 0.5-3(2.5)mg/3ml) 3 ml Q4H PRN HHN dyspnea 12/27/16 16:30 01/01/17 16:29 Alprazolam (Xanax) 1 mg Q8H PRN ORAL ANXIETY 12/27/16 18:00 01/03/17 17:59 12/28/16 15:08 Amiodarone HCl (Cordarone) 200 mg DAILY ORAL 12/28/16 09:00 01/27/17 08:59 12/29/16 08:08 Carvedilol (Coreg) 12.5 mg EVERY 12 HOURS ORAL 12/28/16 21:00 01/27/17 20:59 12/29/16 08:06 Dextrose (Dextrose 50%) STAT PRN IV Hypoglycemia 12/27/16 16:30 01/26/17 16:29 Digoxin (Lanoxin) 0.25 mg DAILY ORAL 12/28/16 09:00 01/27/17 08:59 12/29/16 08:08 Diltiazem HCl (Cardizem) 10 mg Q1H PRN IV For HR > 120 12/28/16 08:00 01/27/17 07:59 12/28/16 08:27 Diphenhydramine HCl (Benadryl) 25 mg Q6H PRN IVP Itching 12/28/16 16:30 01/27/17 16:29 12/28/16 23:28 Gabapentin (Neurontin) 300 mg Q12HR ORAL 12/27/16 21:00 01/26/17 20:59 12/29/16 08:08 Lorazepam (Ativan 2mg/ml 1ml) 0.5 mg Q4H PRN IV For Anxiety 12/27/16 16:30 01/03/17 16:29 Nitroglycerin (Ntg) 0.4 mg Q5M X 3 DOSES PRN SL Prn Chest Pain 12/27/16 16:30 01/26/17 16:29 Ondansetron HCl (Zofran) 4 mg Q6H PRN IVP Nausea & Vomiting 12/27/16 16:30 01/26/17 16:29 Temazepam (Restoril) 15 mg HSPRN PRN ORAL Insomnia 12/27/16 21:00 01/03/17 20:59 NIKO HARVEY Dec 29, 2016 10:44
[2016-12-29 12:00] VITALS: BP 150/91
[2016-12-29] MEDS: DiphenhydrAMINE 50mg/ml Inj IVP PRN (12:51)
[2016-12-29] MEDS ORDERED: NS 275ml ONE (14:09)
[2016-12-29] MEDS ORDERED: Tubing IV Secondary IV ONE (14:09)
--- NOTE | 2016-12-30 18:31 | Discharge Summary ---
Discharge Summary Hospital Course Date of Admission Dec 27, 2016 at 15:48 Date of Discharge Dec 29, 2016 at 14:10 Admitting Diagnosis ANGIOEDEMA HPI Marly Verma is a 76 year old female who was admitted on Dec 27, 2016 at 15:48 for Angioedema Hospital Course [id number] Discharge Discharge Disposition Patient was discharged to SNF/Subacute Facility(03) Discharge Diagnoses: Julissa Posadas NP Dec 30, 2016 18:31
--- NOTE | 2016-12-31 05:30 | Discharge Summary 2 SIG ---
DATE OF ADMISSION: 12/27/2016 DATE OF DISCHARGE: 12/29/2016 CONSULTANTS: Bartolome Esquivel M.D. BRIEF HOSPITAL COURSE: The patient is a 76-year-old female with history of atrial fibrillation, coronary artery disease, pacemaker, generalized muscle weakness, and residing in [facility]. She was brought in by paramedics with chief complaint of swelling of tongue, face, and lips and unable to swallow food. On evaluation at ED, she was given IV Benadryl, IV Solu-Medrol, and breathing treatments. She was initially hypotensive, blood pressure 96/62 and responded to IV fluid. EKG showed atrial flutter and head CT showed no acute intracranial bleed, mass effect, or edema. Telemetry data showed atrial fibrillation with variable ventricular response, at times rapid. EKG showed atrial fibrillation/flutter with normal QRS axis and no ST to T-wave abnormalities. She had an echocardiogram done in November 2016 that showed ejection fraction of 55% with normal left ventricular function, significant biatrial enlargement, dilated IVC, and no significant valvular regurgitation. Chest x-ray showed no acute process with minimal right basilar and left perihilar atelectasis. Beta-mary was increased. Heart rate controlled. She underwent physical therapy and was eventually discharged back to SNF. FINAL DIAGNOSES: 1. Angioedema. 2. Uncontrolled atrial fibrillation. 3. Pacemaker. 4. Hypertension. 5. Hyperlipidemia. Seven Gomez M.D. I have been assigned to dictate discharge summary on this account and I was not involved in the patient's management. Julissa Posadas N.P. DR: JOVANI JOB#: [id number] CC:
== END 2016-12-29 14:10 | DRG 916 ==
LOC: EDUNIT# 14:06 → EDBD 14:06 → EMR 15:05 → 2W 15:48 → EDBEDREQ 18:28
DX: T78.3XXA Angioneurotic edema, initial encounter (principal); I48.91 Unspecified atrial fibrillation; G30.9 Alzheimer's disease, unspecified; F02.80 Dementia in other diseases classified elsewhere, unspecified severity, without behavioral disturbance, psychotic disturbance, mood disturbance, and anxiety; T50.905A Adverse effect of unspecified drugs, medicaments and biological substances, initial encounter; I10 Essential (primary) hypertension; Z95.0 Presence of cardiac pacemaker; I25.10 Atherosclerotic heart disease of native coronary artery without angina pectoris; Z88.6 Allergy status to analgesic agent; I25.2 Old myocardial infarction; E78.5 Hyperlipidemia, unspecified; Z91.81 History of falling
CPT/HCPCS: 36415; 70450; 71010; 80053; 80162; 82550; 82553; 83735; 84100; 85007; 85025; 85610; 85730; 93005; 94640; 94664; 94760

== ENCOUNTER 2017-01-14 12:10 | Inpatient (IN) | payer MEDICARE, MEDICAID ==
[~2017-01-14] VITALS: Ht 172.7 cm; Wt 74.8 kg
[~2017-01-14 12:10] MED LIST changes: +BENADRYL50 MG/ML IVP; +BISACODYL5 MG RC; +MILK OF MA400 MG/51 ORAL; +MULTIVITAMINS1 EAC8 ORAL
[2017-01-14 12:50] LABS: BASOPHILS % (AUTO) 0.9 % (0.0-2.0); EOSINOPHILS % (AUTO) 4.4 % (0.0-3.0); LYMPHOCYTES % (AUTO) 21.2 % (20.0-45.0); MEAN CORPUSCULAR HEMOGLOBIN 24.1 PG (27.0-31.0); MEAN CORPUSCULAR HGB CONC 30.6 G/DL (32.0-36.0); MEAN CORPUSCULAR VOLUME 79 FL (80-99); MEAN PLATELET VOLUME 9.6 FL (6.5-10.1); MONOCYTES % (AUTO) 5.6 % (1.0-10.0); NEUTROPHILS % (AUTO) 67.8 % (45.0-75.0); PLATELET COUNT 162 K/UL (150-450); RED BLOOD COUNT 5.91 M/UL (4.20-5.40); RED CELL DISTRIBUTION WIDTH 14.4 % (11.6-14.8); WHITE BLOOD COUNT 8.1 K/UL (4.8-10.8)
[2017-01-14 12:57] LABS: PROTHROMBIN TIME 10.8 SEC (9.30-11.50)
[2017-01-14 12:59] LABS: ALANINE AMINOTRANSFERASE 7 U/L (3-33); ALBUMIN/GLOBULIN RATIO 0.9 (1.0-2.7); ANION GAP 11 (5-15); ASPARTATE AMINO TRANSFERASE 14 U/L (5-40); CARBON DIOXIDE 28 mEQ/L (20-30); CHLORIDE 98 mEQ/L (98-107); CREATININE 0.5 mg/dL (0.5-0.9); HEMOLYSIS 42; LIPASE 9 U/L (< 60); POTASSIUM 4.4 mEQ/L (3.4-4.9); SODIUM 137 mEQ/L (135-145); TOTAL PROTEIN 6.9 g/dL (6.6-8.7); TROPONIN I < 0.30 ng/mL (<=0.30)
[2017-01-14 13:10] LABS: CKMB < 1.5 ng/mL (< 3.8)
[2017-01-14 13:40] LABS: APPEARANCE,URINE SLIGHTLY CLOUDY; KETONES,URINE NEGATIVE (NEGATIVE); LEUKOCYTE ESTERASE ,URINE 2+ (NEGATIVE); NITRITE,URINE POSITIVE (NEGATIVE); PH,URINE 8 (4.5-8.0); PROTEIN,URINE 2+ (NEGATIVE); UROBILINOGEN,URINE 1 MG/DL (0.0-1.0)
[2017-01-14 13:44] LABS: BACTERIA,URINE MANY /HPF; SQUAMOUS EPITHELIAL CELL,UR FEW /LPF (NONE/OCC); TRIPLE PHOSPHATE CRYSTAL,UR FEW /LPF
--- NOTE | 2017-01-14 14:29 | Emergency Room Report ---
History of Present Illness General Chief Complaint: Generalized Weakness Source: Patient, Medical Record, EMS Present Illness HPI Patient presents emergency department today complaining she was weakness. Patient was recently admitted for atrial fibrillation. She was noted to be weak and hypotensive and was transferred here for further evaluation. 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 She denies any chest pain shortness breath. Chief appears very somnolent. No other complaints are noted. Symptoms noted to be moderate to severe. No other modifying factors. No other associated signs and symptoms. No other complaints were noted. Allergies: Coded Allergies: MORPHINE (Verified Allergy, Severe, Hives, 10/12/12) HIVES Patient History Past Medical History: DM, HTN, AFib, COPD Past Surgical History: pacemaker Social History: Denies: alcohol use, drug use, smoking Reviewed Nursing Documentation: PMH: Agreed, PSxH: Agreed Nursing Documentation-PMH Past Medical History: No History, Except For Hx Cardiac Problems: Yes - Afib Hx Hypertension: Yes Hx Pacemaker: Yes - Pacemaker inserted in left chest in August 24, 2016 Hx Asthma: Yes Hx COPD: Yes - Osteoarthritis Hx Cancer: No Hx Gastrointestinal Problems: No Hx Neurological Problems: Yes - Muscle weakness, polyneuropathy Hx Dementia: Yes Hx Alzheimer's Disease: Yes Hx Headaches: Yes Review of Systems All Other Systems: negative except mentioned in HPI Physical Exam Vital Signs Date Time Temp Pulse Resp B/P Pulse Ox O2 Delivery O2 Flow Rate FiO2 01/14/17 12:11 97.3 67 18 90/57 93 Nasal Cannula 2.0 Sp02 EP Interpretation: reviewed, normal General Appearance: mild distress, Stupor Head: atraumatic Eyes: bilateral eye normal inspection ENT: normal ENT inspection, hearing grossly normal, normal voice, other - Dry mucous membranes Neck: normal inspection, full range of motion, supple, no bony tend Respiratory: normal inspection, lungs clear, normal breath sounds, no respiratory distress, no retraction, no wheezing Cardiovascular #1: no edema, irregularly irregular Gastrointestinal: normal inspection, normal bowel sounds, non tender, soft, no guarding, no hernia Genitourinary: no CVA tenderness Musculoskeletal: normal inspection, back normal, normal range of motion Neurologic: normal inspection, alert, responsive, speech normal Psychiatric: normal inspection, judgement/insight normal, mood/affect normal Skin: normal inspection, normal color, no rash Procedures Critical Care Time Critical Care Time Patient had a critical medical condition which untreated could potentially result in life or limb threatening injury. Total critical care time excluding procedures was approximately 45 minutes. Medical Decision Making Diagnostic Impression: Primary Impression: Atrial fibrillation Qualified Codes: I48.91 - Unspecified atrial fibrillation Additional Impressions: Hypotension Qualified Codes: I95.9 - Hypotension, unspecified Dehydration UTI (urinary tract infection) ER Course Patient presents emergency department today complaining of weakness. Differential considerations include cellulitis, abscess, infectious process, dehydration, UTI just name a few.Given the severity of the patient's presentation I felt this is a highly complex patient. This patient required extensive workup. Patient laboratory workup is consistent with UTI. However patient was hypotensive appear dehydrated. Patient was given fluid boluses and her blood pressure improved. Given severe he patient's mentation for the patient require admission to a monitor setting. Case was discussed with Dr. Gomez further treatment. Labs Test 01/14/17 12:33 01/14/17 13:05 White Blood Count 8.1 K/UL (4.8-10.8) Red Blood Count 5.91 M/UL (4.20-5.40) Hemoglobin 14.3 G/DL (12.0-16.0) Hematocrit 46.7 % (37.0-47.0) Mean Corpuscular Volume 79 FL (80-99) Mean Corpuscular Hemoglobin 24.1 PG (27.0-31.0) Mean Corpuscular Hemoglobin Concent 30.6 G/DL (32.0-36.0) Red Cell Distribution Width 14.4 % (11.6-14.8) Platelet Count 162 K/UL (150-450) Mean Platelet Volume 9.6 FL (6.5-10.1) Neutrophils (%) (Auto) 67.8 % (45.0-75.0) Lymphocytes (%) (Auto) 21.2 % (20.0-45.0) Monocytes (%) (Auto) 5.6 % (1.0-10.0) Eosinophils (%) (Auto) 4.4 % (0.0-3.0) Basophils (%) (Auto) 0.9 % (0.0-2.0) Prothrombin Time 10.8 SEC (9.30-11.50) Prothromb Time International Ratio 1.0 (0.9-1.1) Activated Partial Thromboplast Time 31 SEC (23-33) Sodium Level 137 mEQ/L (135-145) Potassium Level 4.4 mEQ/L (3.4-4.9) Chloride Level 98 mEQ/L (98-107) Carbon Dioxide Level 28 mEQ/L (20-30) Anion Gap 11 (5-15) Blood Urea Nitrogen 14 mg/dL (7-23) Creatinine 0.5 mg/dL (0.5-0.9) Estimat Glomerular Filtration Rate mL/min (>60) Glucose Level 143 mg/dL (74-106) Lactic Acid Level 1.50 mmol/L (0.66-2.22) Calcium Level 9.0 mg/dL (8.6-10.2) Total Bilirubin 0.4 mg/dL (0.0-1.2) Aspartate Amino Transf (AST/SGOT) 14 U/L (5-40) Alanine Aminotransferase (ALT/SGPT) 7 U/L (3-33) Alkaline Phosphatase 76 U/L (35-104) Total Creatine Kinase 18 U/L (26-140) Creatine Kinase MB < 1.5 ng/mL (< 3.8) Creatine Kinase MB Relative Index 8.3 Troponin I < 0.30 ng/mL (<=0.30) Pro-B-Type Natriuretic Peptide 1907 pg/mL (0-450) Total Protein 6.9 g/dL (6.6-8.7) Albumin 3.3 g/dL (3.5-5.2) Globulin 3.6 g/dL Albumin/Globulin Ratio 0.9 (1.0-2.7) Lipase 9 U/L (< 60) Urine Color Yellow Urine Appearance Slightly cloudy Urine pH 8 (4.5-8.0) Urine Specific [place] 1.010 (1.005-1.035) Urine Protein 2+ (NEGATIVE) Urine Glucose (UA) Negative (NEGATIVE) Urine Ketones Negative (NEGATIVE) Urine Occult Blood 3+ (NEGATIVE) Urine Nitrite Positive (NEGATIVE) Urine Bilirubin Negative (NEGATIVE) Urine Urobilinogen 1 MG/DL (0.0-1.0) Urine Leukocyte Esterase 2+ (NEGATIVE) Urine RBC 2-4 /HPF (0 - 2) Urine WBC 2-4 /HPF (0 - 2) Urine Squamous Epithelial Cells Few /LPF (NONE/OCC) Urine Triple Phosphate Crystals Few /LPF (NONE) Urine Bacteria Many /HPF (NONE) EKG Diagnostic Results Rate: normal Rhythm: other - a-fib ST Segments: no acute changes Rhythm Strip Diag. Results EP Interpretation: yes Rate: 60s Rhythm: no PVC's, no ectopy, other - a-fib, occasional pacemaker capture Chest X-Ray Diagnostic Results Chest X-Ray Diagnostic Results : Chest X-Ray Ordered: Yes # of Views/Limited/Complete: 1 View Indication: Shortness of Breath EP Interpretation: Yes Interpretation: no consolidation, no effusion, other - pacemaker Impression: No acute disease Interpreting ER Provider: Electronically signed by Luisito Stevens MD CT/MRI/US Diagnostic Results CT/MRI/US Diagnostic Results : Imaging Test Ordered: ct head, neg Last Vital Signs Date Time Temp Pulse Resp B/P Pulse Ox O2 Delivery O2 Flow Rate FiO2 01/14/17 12:11 97.3 67 18 90/57 93 Nasal Cannula 2.0 Status: improved Disposition: ADMITTED INPATIENT Condition: Serious Referrals: NIKO GOMEZ (PCP) LUISITO STEVENS M.D. Jan 14, 2017 14:29
[2017-01-14 14:43] VITALS: BP 119/70
[2017-01-14] MEDS ORDERED: Mylanta II UD 30ml ORAL PRN (16:00)
[2017-01-14] MEDS ORDERED: LORazepam Inj 2mg/ml 1ml IV PRN (16:00)
--- NOTE | 2017-01-14 16:05 | Diagnostic Imaging Report ---
Indication: PAIN Technique: One view of the chest Comparison: 01/06/17 Findings: Scarring is seen in the left midlung. Lungs and pleural spaces otherwise clear. Left chest unifocal pacemaker is again demonstrated. The heart is upper limits of normal in size. No significant interim change Impression: Findings as noted. No definite acute process This agrees with the preliminary interpretation provided by the emergency room physician
[2017-01-14 16:12] VITALS: BP 120/80
[2017-01-14] MEDS ORDERED: Cyclobenzaprine 10mg Tab ORAL PRN (17:00)
[2017-01-14] MEDS ORDERED: ALPRAZolam 0.25mg tab ORAL PRN (17:00)
--- NOTE | 2017-01-14 18:21 | Cardiology Progress Note ---
Assessment/Plan Assessment/Plan metorpolol not clear to me omer she is not on anticaogualtion [id number] Objective Last 24 Hour Vital Signs Date Time Temp Pulse Resp B/P Pulse Ox O2 Delivery O2 Flow Rate FiO2 01/14/17 17:23 76 01/14/17 16:23 98.2 84 15 120/80 99 Nasal Cannula 2.0 01/14/17 16:12 98.2 84 15 120/80 99 Nasal Cannula 2.0 01/14/17 14:43 97.3 80 15 119/70 98 Nasal Cannula 2.0 01/14/17 12:11 97.3 67 18 90/57 93 Nasal Cannula 2.0 Laboratory Tests Test 01/14/17 12:33 01/14/17 13:05 White Blood Count 8.1 K/UL (4.8-10.8) Red Blood Count 5.91 M/UL (4.20-5.40) H Hemoglobin 14.3 G/DL (12.0-16.0) Hematocrit 46.7 % (37.0-47.0) Mean Corpuscular Volume 79 FL (80-99) L Mean Corpuscular Hemoglobin 24.1 PG (27.0-31.0) L Mean Corpuscular Hemoglobin Concent 30.6 G/DL (32.0-36.0) L Red Cell Distribution Width 14.4 % (11.6-14.8) Platelet Count 162 K/UL (150-450) Mean Platelet Volume 9.6 FL (6.5-10.1) Neutrophils (%) (Auto) 67.8 % (45.0-75.0) Lymphocytes (%) (Auto) 21.2 % (20.0-45.0) Monocytes (%) (Auto) 5.6 % (1.0-10.0) Eosinophils (%) (Auto) 4.4 % (0.0-3.0) H Basophils (%) (Auto) 0.9 % (0.0-2.0) Prothrombin Time 10.8 SEC (9.30-11.50) Prothromb Time International Ratio 1.0 (0.9-1.1) Activated Partial Thromboplast Time 31 SEC (23-33) Sodium Level 137 mEQ/L (135-145) Potassium Level 4.4 mEQ/L (3.4-4.9) Chloride Level 98 mEQ/L (98-107) Carbon Dioxide Level 28 mEQ/L (20-30) Anion Gap 11 (5-15) Blood Urea Nitrogen 14 mg/dL (7-23) Creatinine 0.5 mg/dL (0.5-0.9) Estimat Glomerular Filtration Rate mL/min (>60) Glucose Level 143 mg/dL (74-106) H Lactic Acid Level 1.50 mmol/L (0.66-2.22) Calcium Level 9.0 mg/dL (8.6-10.2) Total Bilirubin 0.4 mg/dL (0.0-1.2) Aspartate Amino Transf (AST/SGOT) 14 U/L (5-40) Alanine Aminotransferase (ALT/SGPT) 7 U/L (3-33) Alkaline Phosphatase 76 U/L (35-104) Total Creatine Kinase 18 U/L (26-140) L Creatine Kinase MB < 1.5 ng/mL (< 3.8) Creatine Kinase MB Relative Index 8.3 Troponin I < 0.30 ng/mL (<=0.30) Pro-B-Type Natriuretic Peptide 1907 pg/mL (0-450) H Total Protein 6.9 g/dL (6.6-8.7) Albumin 3.3 g/dL (3.5-5.2) L Globulin 3.6 g/dL Albumin/Globulin Ratio 0.9 (1.0-2.7) L Lipase 9 U/L (< 60) Digoxin Level Pending Urine Color Yellow Urine Appearance Slightly cloudy Urine pH 8 (4.5-8.0) Urine Specific [place] 1.010 (1.005-1.035) Urine Protein 2+ (NEGATIVE) H Urine Glucose (UA) Negative (NEGATIVE) Urine Ketones Negative (NEGATIVE) Urine Occult Blood 3+ (NEGATIVE) H Urine Nitrite Positive (NEGATIVE) H Urine Bilirubin Negative (NEGATIVE) Urine Urobilinogen 1 MG/DL (0.0-1.0) H Urine Leukocyte Esterase 2+ (NEGATIVE) H Urine RBC 2-4 /HPF (0 - 2) H Urine WBC 2-4 /HPF (0 - 2) Urine Squamous Epithelial Cells Few /LPF (NONE/OCC) Urine Triple Phosphate Crystals Few /LPF (NONE) H Urine Bacteria Many /HPF (NONE) H ROGELIO MEI Jan 14, 2017 18:21
[2017-01-14 20:00] VITALS: BP 122/70
--- NOTE | 2017-01-14 20:20 | History and Physical ---
History of Present Illness General Reason for Hospitalization: Generalized Weakness Present Illness Allergies: Coded Allergies: MORPHINE (Verified Allergy, Severe, Hives, 10/12/12) HIVES Medication History Scheduled Alprazolam* (Xanax*), 1 MG ORAL TID, (Reported) Amiodarone Hcl (Amiodarone Hcl), 200 MG ORAL DAILY Aspirin* (Aspirin*), 81 MG ORAL DAILY, (Reported) Aspirin* (Aspirin*), 81 MG ORAL DAILY Atorvastatin (Lipitor), 80 MG ORAL BEDTIME Carvedilol (Coreg), 6.25 MG ORAL EVERY 12 HOURS Carvedilol (Coreg), 12.5 MG ORAL EVERY 12 HOURS Cyclobenzaprine Hcl* (Flexeril*), 10 MG ORAL BID, (Reported) Digoxin* (Digoxin*), 0.25 MG ORAL DAILY, (Reported) Docusate Sodium* (Docusate Sodium*), 100 MG ORAL DAILY, (Reported) Escitalopram Oxalate* (Lexapro*), 10 MG ORAL DAILY, (Reported) Gabapentin (Neurontin), 300 MG ORAL BID Gabapentin* (Gabapentin*), 300 MG PO QHS, (Reported) Lidocaine (Lidoderm), 1 PATCH TDERMAL DAILY Magnesium Hydroxide* (Milk Of Magnesia*), 30 ML ORAL DAILY, (Reported) Multivitamin With Minerals (Multivitamins With Minerals*), 1 TAB ORAL DAILY, ( Reported) Zolpidem Tartrate* (Ambien*), 5 MG ORAL BEDTIME, (Reported) Scheduled PRN Acetaminophen* (Acetaminophen 325MG Tablet*), 650 MG ORAL Q4H PRN Bisacodyl* (Dulcolax*), 10 MG RC DAILY PRN for Constipation, (Reported) Diphenhydramine HCl (Diphenhydramine HCl), 25 MG IVP Q6H PRN Hydrocodone Bit/Acetaminophen 5-325* ([place] 5-325*), 1 TAB ORAL Q4H PRN Tizanidine Hcl (Zanaflex*), 4 MG ORAL for For Pain, (Reported) Tizanidine Hcl* (Zanaflex*), 4 MG ORAL DAILY PRN for For Pain, (Reported) Miscellaneous Medications Lidocaine (Lidoderm), 700 MG TP, (Reported) Patient History Healthcare decision maker Resuscitation status Full Code Advanced Directive on File No Review of Systems All Other Systems: negative except mentioned in HPI Physical Exam General Appearance: WD/WN Lines, tubes and drains: peripheral HEENT: normocephalic, atraumatic Neck: non-tender, normal alignment Respiratory/Chest: chest wall non-tender, lungs clear Breasts: no masses Cardiovascular/Chest: normal peripheral pulses Abdomen: normal bowel sounds Last 24 Hour Vital Signs Date Time Temp Pulse Resp B/P Pulse Ox O2 Delivery O2 Flow Rate FiO2 01/14/17 17:23 76 01/14/17 16:23 98.2 84 15 120/80 99 Nasal Cannula 2.0 01/14/17 16:12 98.2 84 15 120/80 99 Nasal Cannula 2.0 01/14/17 14:43 97.3 80 15 119/70 98 Nasal Cannula 2.0 01/14/17 12:11 97.3 67 18 90/57 93 Nasal Cannula 2.0 Laboratory Tests Test 01/14/17 12:33 01/14/17 13:05 White Blood Count 8.1 K/UL (4.8-10.8) Red Blood Count 5.91 M/UL (4.20-5.40) H Hemoglobin 14.3 G/DL (12.0-16.0) Hematocrit 46.7 % (37.0-47.0) Mean Corpuscular Volume 79 FL (80-99) L Mean Corpuscular Hemoglobin 24.1 PG (27.0-31.0) L Mean Corpuscular Hemoglobin Concent 30.6 G/DL (32.0-36.0) L Red Cell Distribution Width 14.4 % (11.6-14.8) Platelet Count 162 K/UL (150-450) Mean Platelet Volume 9.6 FL (6.5-10.1) Neutrophils (%) (Auto) 67.8 % (45.0-75.0) Lymphocytes (%) (Auto) 21.2 % (20.0-45.0) Monocytes (%) (Auto) 5.6 % (1.0-10.0) Eosinophils (%) (Auto) 4.4 % (0.0-3.0) H Basophils (%) (Auto) 0.9 % (0.0-2.0) Prothrombin Time 10.8 SEC (9.30-11.50) Prothromb Time International Ratio 1.0 (0.9-1.1) Activated Partial Thromboplast Time 31 SEC (23-33) Sodium Level 137 mEQ/L (135-145) Potassium Level 4.4 mEQ/L (3.4-4.9) Chloride Level 98 mEQ/L (98-107) Carbon Dioxide Level 28 mEQ/L (20-30) Anion Gap 11 (5-15) Blood Urea Nitrogen 14 mg/dL (7-23) Creatinine 0.5 mg/dL (0.5-0.9) Estimat Glomerular Filtration Rate mL/min (>60) Glucose Level 143 mg/dL (74-106) H Lactic Acid Level 1.50 mmol/L (0.66-2.22) Calcium Level 9.0 mg/dL (8.6-10.2) Total Bilirubin 0.4 mg/dL (0.0-1.2) Aspartate Amino Transf (AST/SGOT) 14 U/L (5-40) Alanine Aminotransferase (ALT/SGPT) 7 U/L (3-33) Alkaline Phosphatase 76 U/L (35-104) Total Creatine Kinase 18 U/L (26-140) L Creatine Kinase MB < 1.5 ng/mL (< 3.8) Creatine Kinase MB Relative Index 8.3 Troponin I < 0.30 ng/mL (<=0.30) Pro-B-Type Natriuretic Peptide 1907 pg/mL (0-450) H Total Protein 6.9 g/dL (6.6-8.7) Albumin 3.3 g/dL (3.5-5.2) L Globulin 3.6 g/dL Albumin/Globulin Ratio 0.9 (1.0-2.7) L Lipase 9 U/L (< 60) Digoxin Level Pending Urine Color Yellow Urine Appearance Slightly cloudy Urine pH 8 (4.5-8.0) Urine Specific [place] 1.010 (1.005-1.035) Urine Protein 2+ (NEGATIVE) H Urine Glucose (UA) Negative (NEGATIVE) Urine Ketones Negative (NEGATIVE) Urine Occult Blood 3+ (NEGATIVE) H Urine Nitrite Positive (NEGATIVE) H Urine Bilirubin Negative (NEGATIVE) Urine Urobilinogen 1 MG/DL (0.0-1.0) H Urine Leukocyte Esterase 2+ (NEGATIVE) H Urine RBC 2-4 /HPF (0 - 2) H Urine WBC 2-4 /HPF (0 - 2) Urine Squamous Epithelial Cells Few /LPF (NONE/OCC) Urine Triple Phosphate Crystals Few /LPF (NONE) H Urine Bacteria Many /HPF (NONE) H Height (Feet): 5 Height (Inches): 8.00 Weight (Pounds): 165 Medications Current Medications Medications (Trade) Dose Ordered Sig/Sarmad Route PRN Reason Start Time Stop Time Status Last Admin Dose Admin Acetaminophen (Tylenol) 650 mg Q4H PRN ORAL Fever/Headache/Mild Pain 01/14/17 20:00 02/13/17 19:59 Acetaminophen/ Hydrocodone Bitart ([place] 5/325) 1 tab Q6H PRN ORAL PAIN 4-10 01/14/17 20:00 01/21/17 19:59 Al Hydroxide/Mg Hydroxide (Mylanta II) 30 ml Q6H PRN ORAL dyspepsia 01/14/17 16:00 02/13/17 15:59 Alprazolam (Xanax) 1 mg Q8H PRN ORAL AGITATION 01/14/17 17:00 01/21/17 16:59 Amiodarone HCl (Cordarone) 200 mg DAILY ORAL 01/15/17 09:00 02/14/17 08:59 Atorvastatin Calcium (Lipitor) 80 mg BEDTIME ORAL 01/14/17 21:00 02/13/17 20:59 Cyclobenzaprine HCl (Flexeril) 10 mg BIDPRN PRN ORAL Muscle Spasms 01/14/17 17:00 02/13/17 16:59 Dextrose (Dextrose 50%) STAT PRN IV Hypoglycemia 01/14/17 16:00 02/13/17 15:59 Digoxin (Lanoxin) 0.25 mg DAILY ORAL 01/15/17 09:00 02/14/17 08:59 UNV Gabapentin (Neurontin) 300 mg BID ORAL 01/14/17 18:00 02/13/17 17:59 01/14/17 18:40 Lorazepam (Ativan 2mg/ml 1ml) 0.5 mg Q4H PRN IV For Anxiety 01/14/17 16:00 01/21/17 15:59 Metoprolol Tartrate 25 mg 25 mg Q12HR ORAL 01/14/17 21:00 02/13/17 20:59 Ondansetron HCl (Zofran) 4 mg Q6H PRN IVP Nausea & Vomiting 01/14/17 16:00 02/13/17 15:59 Polyethylene Glycol (Miralax) 17 gm HSPRN PRN ORAL Constipation 01/14/17 21:00 02/13/17 20:59 Sodium Chloride (Sodium Chloride 1000ml bag) 1,000 ml @ 75 mls/hr [id number] IV 01/14/17 18:30 02/13/17 18:29 01/14/17 18:40 Zolpidem Tartrate (Ambien) 5 mg HSPRN PRN ORAL Insomnia 01/14/17 21:00 02/13/17 20:59 Assessment/Plan Problem List: (1) Acute encephalopathy ICD Codes: G93.40 - Encephalopathy, unspecified SNOMED: 4177760 (2) Atrial fibrillation ICD Codes: I48.91 - Unspecified atrial fibrillation SNOMED: 27513058 Qualifiers: Qualified Codes: I48.91 - Unspecified atrial fibrillation (3) Recurrent falls ICD Codes: R29.6 - Repeated falls SNOMED: 389915812 (4) General weakness ICD Codes: R53.1 - Weakness SNOMED: 29410168 Assessment/Plan telemetry monitoring cardiac evaluation pain management opitmize cardiac meds pt/pt dvt prophylaxis NIKO HARVEY Jan 14, 2017 20:20
[2017-01-14] MEDS: Metoprolol 25mg tab ORAL SCH (20:45)
[2017-01-14] MEDS: Atorvastatin 80mg tab ORAL SCH (20:46)
[2017-01-14] MEDS ORDERED: Carvedilol 6.25mg Tab ORAL SCH (21:00)
[2017-01-14] MEDS ORDERED: Miralax 17gm pkt ORAL PRN (21:00)
[2017-01-14] MEDS ORDERED: Zolpidem 5mg tab ORAL PRN (21:00)
[2017-01-14] MEDS: Norco 5mg/325mg tab ORAL PRN (22:03)
[2017-01-15 00:16] VITALS: BP 124/60
--- NOTE | 2017-01-15 02:17 | Consultation ---
DATE OF CONSULTATION: 01/14/2017 CARDIOLOGY CONSULTATION CONSULTING PHYSICIAN: Bartolome Esquivel M.D. REFERRING PHYSICIAN: Seven Gomez M.D. REASON FOR REFERRAL: Atrial fibrillation. HISTORY OF PRESENT ILLNESS: This is an elderly female, who is a resident of convalescent facility. She tells me that she was looking pale at [facility]. According to the hospice superintendent run sheet, she was complaining of dizziness, weakness, and neck pain, 10/10. Nurse gave 5 mg of [place] and lowering the pain at 8/10. She was transferred because of weakness and dizziness and neck pain to [facility]. She states she does not know what happened to her. Her blood pressure did drop and thus hospice superintendent run sheet indicates a blood pressure of 90/57 with a heart rate of 77 at the time when the patient was picked up. She was brought to the emergency room at [facility] and was evaluated. She denies any chest pain. Denies any shortness of breath. Denies any palpitation. Denies any dizziness or lightheadedness. The patient was appeared very somnolent on the emergency room physician's evaluation. Otherwise no complaints and at this time, she feels much better. She is more awake responsive and even trying to eat some food. PAST MEDICAL HISTORY: Positive for history of recent hospitalization and discharged here. She has history of permanent atrial fibrillation. She had had an angioedema, pacemaker implantation, hypertension, hyperlipidemia, and low back pain, multiple injury secondary to trauma, vertebrals fractures, history of non-ST elevation myocardial infarction, hypertension, coronary disease, which are known Alzheimer's dementia, and history of negative stress test here in 2016 at [place]. SOCIAL HISTORY: She does not smoke at the present time. Does not drink alcohol at the present time. She is in a convalescent facility. REVIEW OF SYSTEMS: Gastrointestinal: She denies any nausea, vomiting, diarrhea, or constipation. No black or bloody stool. Genitourinary: She has a Rainey catheter. Denies discomfort on urination. Pulmonary: She does have some problem with swallowing at times. Constitutional: No fever, chills, or night sweats. Neurologic: As mentioned with alteration of mental status. PHYSICAL EXAMINATION: GENERAL: Shows an elderly female, in no respiratory distress. VITAL SIGNS: Blood pressure was noted to be 90/57 and is now 120/80, temperature is 98.2, and heart rate is at 84. NECK: Supple. No jugular venous distention. Any significant amount of help just to sit up to be able to be examined. LUNGS: Some crackles noted at the base. CARDIAC: Examination irregularly irregular. Borderline tachycardic. No RV lift, heaves or thrills noted. ABDOMEN: Soft and nontender. Positive bowel sounds. Rainey catheter is draining very purulent looking urine. EXTREMITIES: There is no edema. NEUROLOGIC: She is awake, alert, and responsive, and in no apparent respiratory distress. LABORATORY DATA: White count of 8.1 with hemoglobin of 14.3, and platelet count of 162,000. Her sodium is 137, potassium 4.4, chloride 98, bicarbonate 28, BUN 14, creatinine 0.5, and glucose of 143. Lactic acid of 1.5. Her proBNP of 1097 less than the peak level of 9300 back in June of 2015. Albumin at 3.3. Lipase is 8.0. INR 1.0 and a PTT of 31. Tox screen is pending. Urinalysis shows 2 to 4 RBCs and 2 to 4 WBC, many bacteria being noted. Micro is still pending. ASSESSMENT AND PLAN: 1. Weakness and dizziness. 2. Hypotension, seems resolved. 3. History of possible urinary tract infection. 4. Permanent atrial fibrillation. 5. History of permanent pacemaker implantation. 6. Hypertension. 7. Hyperlipidemia. This patient was seen in cardiac consultation. The patient denies any chest pain at this time. Her electrocardiogram shows atrial fibrillation with ventricular response being controlled and she is on ventricular pacing. Her medications for heart rate control should be continued including higher doses of beta-blockers. Once her blood pressure improves, she should be continued on intravenous fluids. It is of note that the patient had an echocardiogram performed 12/06/2016. At this time, her ejection fraction 55%, biatrial enlargement, dilated IVC at that time, and no significant valvular regurgitation. Her chest x-ray today is reportedly showing the left middle lung lobe scarring, otherwise pleural spaces are clear. She should be monitored on telemetry. Bartolome Esquivel M.D. DR: SHARI JOB#: [id number] CC:
[2017-01-15] MEDS: Norco 5mg/325mg tab ORAL PRN (04:10)
[2017-01-15 04:28] VITALS: BP 123/59
[2017-01-15 07:42] VITALS: BP 146/86
[2017-01-15 08:09] LABS: BASOPHILS % (AUTO) 0.7 % (0.0-2.0); EOSINOPHILS % (AUTO) 2.8 % (0.0-3.0); LYMPHOCYTES % (AUTO) 13.5 % (20.0-45.0); MEAN CORPUSCULAR HEMOGLOBIN 24.9 PG (27.0-31.0); MEAN CORPUSCULAR VOLUME 80 FL (80-99); MEAN PLATELET VOLUME 10.5 FL (6.5-10.1); MONOCYTES % (AUTO) 6.1 % (1.0-10.0); NEUTROPHILS % (AUTO) 76.9 % (45.0-75.0); PLATELET COUNT 151 K/UL (150-450); RED BLOOD COUNT 6.06 M/UL (4.20-5.40); RED CELL DISTRIBUTION WIDTH 14.5 % (11.6-14.8); WHITE BLOOD COUNT 10.1 K/UL (4.8-10.8)
[2017-01-15 08:19] LABS: ALANINE AMINOTRANSFERASE 6 U/L (3-33); ANION GAP 11 (5-15); ASPARTATE AMINO TRANSFERASE 8 U/L (5-40); CARBON DIOXIDE 29 mEQ/L (20-30); CHLORIDE 100 mEQ/L (98-107); CHOLESTEROL 95 mg/dL (< 200); CHOLESTEROL/HDL RATIO 3.8 (3.3-4.4); CREATININE 0.4 mg/dL (0.5-0.9); HEMOLYSIS 2; LDL CHOLESTEROL (CALC.) 47 mg/dL (60-99); POTASSIUM 3.9 mEQ/L (3.4-4.9); SODIUM 140 mEQ/L (135-145); TOTAL PROTEIN 6.9 g/dL (6.6-8.7)
[2017-01-15] MEDS: Metoprolol 25mg tab ORAL SCH ×2 (08:20→21:43)
[2017-01-15] MEDS: Amiodarone 200mg tab ORAL SCH (08:20)
[2017-01-15 08:21] LABS: THYROID STIMULATING HORMONE 0.913 uIU/mL (0.300-4.500)
[2017-01-15 11:52] VITALS: BP 126/95
[2017-01-15] MEDS: Norco 10mg/325mg tab ORAL PRN ×2 (13:04→23:53)
--- NOTE | 2017-01-15 14:11 | Cardiology Progress Note ---
Assessment/Plan Problem List: (1) Atrial fibrillation (2) Knee pain (3) Recurrent falls (4) Pacemaker (5) Hypertension Status Narrative Mrs. Verma is in AF - ? permanent.vs persistent. she is on amiodarone and ventricular rates are controlled. She is not on anticoagulation currently. Assessment/Plan Continue amiodarone for now, but would consider dc if AF is permanent,and give b blockers for rate control Will start anticoagulation. d/w Dr. Esquivel Subjective ROS Limited/Unobtainable: No Subjective Mrs. Verma has no c/o dyspnea or palpitations. Objective Last 24 Hour Vital Signs Date Time Temp Pulse Resp B/P Pulse Ox O2 Delivery O2 Flow Rate FiO2 01/15/17 12:00 104 01/15/17 11:52 96.6 83 18 126/95 100 Nasal Cannula 100.0 01/15/17 11:29 104 01/15/17 08:20 101 146/86 01/15/17 07:42 97.0 101 20 146/86 97 Nasal Cannula 2.0 01/15/17 07:23 94 01/15/17 05:09 97.8 01/15/17 04:28 97.8 60 20 123/59 94 Nasal Cannula 2.0 01/15/17 03:58 86 01/15/17 00:16 97.0 60 20 124/60 96 Room Air 01/14/17 23:32 93 01/14/17 20:45 76 120/80 01/14/17 20:00 98.0 80 18 122/70 98 Room Air 01/14/17 17:23 76 01/14/17 16:23 98.2 84 15 120/80 99 Nasal Cannula 2.0 01/14/17 16:12 98.2 84 15 120/80 99 Nasal Cannula 2.0 01/14/17 14:43 97.3 80 15 119/70 98 Nasal Cannula 2.0 General Appearance: WD/WN, no apparent distress, alert EENT: PERRL/EOMI Neck: supple, no JVD Rhythm: Afib Cardiovascular: normal rate, no gallop/murmur, irregularly irregular Respiratory/Chest: lungs clear Abdomen: non tender, soft Extremities: no swelling Intake and Output 01/14/17 01/15/17 19:00 07:00 Intake Total 525 ml 925 ml Output Total 550 ml 800 ml Balance -25 ml 125 ml Intake Oral 100 ml IV Total 525 ml 825 ml Output Urine Total 550 ml 800 ml # Voids 2 # Bowel Movements 1 Laboratory Tests Test 01/15/17 07:02 White Blood Count 10.1 K/UL (4.8-10.8) Red Blood Count 6.06 M/UL (4.20-5.40) H Hemoglobin 15.1 G/DL (12.0-16.0) Hematocrit 48.7 % (37.0-47.0) H Mean Corpuscular Volume 80 FL (80-99) Mean Corpuscular Hemoglobin 24.9 PG (27.0-31.0) L Mean Corpuscular Hemoglobin Concent 31.0 G/DL (32.0-36.0) L Red Cell Distribution Width 14.5 % (11.6-14.8) Platelet Count 151 K/UL (150-450) Mean Platelet Volume 10.5 FL (6.5-10.1) H Neutrophils (%) (Auto) 76.9 % (45.0-75.0) H Lymphocytes (%) (Auto) 13.5 % (20.0-45.0) L Monocytes (%) (Auto) 6.1 % (1.0-10.0) Eosinophils (%) (Auto) 2.8 % (0.0-3.0) Basophils (%) (Auto) 0.7 % (0.0-2.0) Sodium Level 140 mEQ/L (135-145) Potassium Level 3.9 mEQ/L (3.4-4.9) Chloride Level 100 mEQ/L (98-107) Carbon Dioxide Level 29 mEQ/L (20-30) Anion Gap 11 (5-15) Blood Urea Nitrogen 9 mg/dL (7-23) Creatinine 0.4 mg/dL (0.5-0.9) L Estimat Glomerular Filtration Rate mL/min (>60) Glucose Level 116 mg/dL (74-106) H Calcium Level 9.0 mg/dL (8.6-10.2) Total Bilirubin 0.6 mg/dL (0.0-1.2) Aspartate Amino Transf (AST/SGOT) 8 U/L (5-40) Alanine Aminotransferase (ALT/SGPT) 6 U/L (3-33) Alkaline Phosphatase 80 U/L (35-104) Total Protein 6.9 g/dL (6.6-8.7) Albumin 3.5 g/dL (3.5-5.2) Globulin 3.4 g/dL Albumin/Globulin Ratio 1.0 (1.0-2.7) Triglycerides Level 117 mg/dL (< 150) Cholesterol Level 95 mg/dL (< 200) LDL Cholesterol 47 mg/dL (60-99) L HDL Cholesterol 25 mg/dL (> 60) Cholesterol/HDL Ratio 3.8 (3.3-4.4) Thyroid Stimulating Hormone (TSH) 0.913 uIU/mL (0.300-4.500) ANTWAN FERREIRA Jan 15, 2017 14:11
[2017-01-15 15:34] VITALS: BP 136/88
[2017-01-15] MEDS: Eliquis 2.5mg tablet ORAL SCH (18:36)
--- NOTE | 2017-01-15 19:23 | Consultation ---
History of Present Illness General Chief Complaint: Generalized Weakness Present Illness HPI 76 yo female with hx of dementia and anxiety who could not recall what led to her hospitalization. the pt was able to provide hx and stated that she takes xanax for anxiety the pt has impairment of memory Allergies: Coded Allergies: MORPHINE (Verified Allergy, Severe, Hives, 10/12/12) HIVES Medication History Scheduled Alprazolam* (Xanax*), 1 MG ORAL TID, (Reported) Amiodarone Hcl (Amiodarone Hcl), 200 MG ORAL DAILY Aspirin* (Aspirin*), 81 MG ORAL DAILY, (Reported) Aspirin* (Aspirin*), 81 MG ORAL DAILY Atorvastatin (Lipitor), 80 MG ORAL BEDTIME Carvedilol (Coreg), 6.25 MG ORAL EVERY 12 HOURS Carvedilol (Coreg), 12.5 MG ORAL EVERY 12 HOURS Cyclobenzaprine Hcl* (Flexeril*), 10 MG ORAL BID, (Reported) Digoxin* (Digoxin*), 0.25 MG ORAL DAILY, (Reported) Docusate Sodium* (Docusate Sodium*), 100 MG ORAL DAILY, (Reported) Escitalopram Oxalate* (Lexapro*), 10 MG ORAL DAILY, (Reported) Gabapentin (Neurontin), 300 MG ORAL BID Gabapentin* (Gabapentin*), 300 MG PO QHS, (Reported) Lidocaine (Lidoderm), 1 PATCH TDERMAL DAILY Magnesium Hydroxide* (Milk Of Magnesia*), 30 ML ORAL DAILY, (Reported) Multivitamin With Minerals (Multivitamins With Minerals*), 1 TAB ORAL DAILY, ( Reported) Zolpidem Tartrate* (Ambien*), 5 MG ORAL BEDTIME, (Reported) Scheduled PRN Acetaminophen* (Acetaminophen 325MG Tablet*), 650 MG ORAL Q4H PRN Bisacodyl* (Dulcolax*), 10 MG RC DAILY PRN for Constipation, (Reported) Diphenhydramine HCl (Diphenhydramine HCl), 25 MG IVP Q6H PRN Hydrocodone Bit/Acetaminophen 5-325* ([place] 5-325*), 1 TAB ORAL Q4H PRN Tizanidine Hcl (Zanaflex*), 4 MG ORAL for For Pain, (Reported) Tizanidine Hcl* (Zanaflex*), 4 MG ORAL DAILY PRN for For Pain, (Reported) Miscellaneous Medications Lidocaine (Lidoderm), 700 MG TP, (Reported) Patient History Limited by: medical condition History Provided By: Patient, Medical Record, PMD Healthcare decision maker Resuscitation status Full Code Advanced Directive on File No Past Medical/Surgical History Past Medical/Surgical History: (1) Acute non-ST segment elevation myocardial infarction (2) Hyponatremia (3) ATN (acute tubular necrosis) (4) Multiple injuries due to trauma (5) Acute encephalopathy (6) General weakness (7) r/o L Knee hemarthrosis (8) Acute respiratory failure (9) Anemia (10) L1 vertebral fracture (11) Hyperkalemia (12) Uncontrolled atrial fibrillation (13) UTI (urinary tract infection) (14) Hypotension (15) Atrial fibrillation (16) Dehydration (17) Knee pain (18) Hypertension (19) Pacemaker (20) Recurrent falls Review of Systems Psychiatric: Reports: anxiety, depressed feelings, emotional problems Physical Exam General Appearance: no apparent distress, alert Neurologic: alert, responsive, depressed affect Last 24 Hour Vital Signs Date Time Temp Pulse Resp B/P Pulse Ox O2 Delivery O2 Flow Rate FiO2 01/15/17 15:34 82 01/15/17 15:34 97.5 95 18 136/88 100 Nasal Cannula 2.0 01/15/17 12:00 104 01/15/17 11:52 96.6 83 18 126/95 100 Nasal Cannula 100.0 01/15/17 11:29 104 01/15/17 08:20 101 146/86 01/15/17 07:42 97.0 101 20 146/86 97 Nasal Cannula 2.0 01/15/17 07:23 94 01/15/17 05:09 97.8 01/15/17 04:28 97.8 60 20 123/59 94 Nasal Cannula 2.0 01/15/17 03:58 86 01/15/17 00:16 97.0 60 20 124/60 96 Room Air 01/14/17 23:32 93 01/14/17 20:45 76 120/80 01/14/17 20:00 98.0 80 18 122/70 98 Room Air Intake and Output 01/14/17 01/15/17 19:00 07:00 Intake Total 525 ml 925 ml Output Total 550 ml 800 ml Balance -25 ml 125 ml Intake Oral 100 ml IV Total 525 ml 825 ml Output Urine Total 550 ml 800 ml # Voids 2 # Bowel Movements 1 Laboratory Tests Test 01/15/17 07:02 White Blood Count 10.1 K/UL (4.8-10.8) Red Blood Count 6.06 M/UL (4.20-5.40) H Hemoglobin 15.1 G/DL (12.0-16.0) Hematocrit 48.7 % (37.0-47.0) H Mean Corpuscular Volume 80 FL (80-99) Mean Corpuscular Hemoglobin 24.9 PG (27.0-31.0) L Mean Corpuscular Hemoglobin Concent 31.0 G/DL (32.0-36.0) L Red Cell Distribution Width 14.5 % (11.6-14.8) Platelet Count 151 K/UL (150-450) Mean Platelet Volume 10.5 FL (6.5-10.1) H Neutrophils (%) (Auto) 76.9 % (45.0-75.0) H Lymphocytes (%) (Auto) 13.5 % (20.0-45.0) L Monocytes (%) (Auto) 6.1 % (1.0-10.0) Eosinophils (%) (Auto) 2.8 % (0.0-3.0) Basophils (%) (Auto) 0.7 % (0.0-2.0) Sodium Level 140 mEQ/L (135-145) Potassium Level 3.9 mEQ/L (3.4-4.9) Chloride Level 100 mEQ/L (98-107) Carbon Dioxide Level 29 mEQ/L (20-30) Anion Gap 11 (5-15) Blood Urea Nitrogen 9 mg/dL (7-23) Creatinine 0.4 mg/dL (0.5-0.9) L Estimat Glomerular Filtration Rate mL/min (>60) Glucose Level 116 mg/dL (74-106) H Calcium Level 9.0 mg/dL (8.6-10.2) Total Bilirubin 0.6 mg/dL (0.0-1.2) Aspartate Amino Transf (AST/SGOT) 8 U/L (5-40) Alanine Aminotransferase (ALT/SGPT) 6 U/L (3-33) Alkaline Phosphatase 80 U/L (35-104) Total Protein 6.9 g/dL (6.6-8.7) Albumin 3.5 g/dL (3.5-5.2) Globulin 3.4 g/dL Albumin/Globulin Ratio 1.0 (1.0-2.7) Triglycerides Level 117 mg/dL (< 150) Cholesterol Level 95 mg/dL (< 200) LDL Cholesterol 47 mg/dL (60-99) L HDL Cholesterol 25 mg/dL (> 60) Cholesterol/HDL Ratio 3.8 (3.3-4.4) Thyroid Stimulating Hormone (TSH) 0.913 uIU/mL (0.300-4.500) Height (Feet): 5 Height (Inches): 8.00 Weight (Pounds): 165 Medications Current Medications Medications (Trade) Dose Ordered Sig/Sarmad Route PRN Reason Start Time Stop Time Status Last Admin Dose Admin Acetaminophen (Tylenol) 650 mg Q4H PRN ORAL Fever/Headache/Mild Pain 01/14/17 20:00 02/13/17 19:59 01/15/17 08:22 Acetaminophen/ Hydrocodone Bitart ([place] 10/325) 1 ea Q6H PRN ORAL Pain 4-10 01/15/17 12:15 01/22/17 12:14 01/15/17 13:04 Al Hydroxide/Mg Hydroxide (Mylanta II) 30 ml Q6H PRN ORAL dyspepsia 01/14/17 16:00 02/13/17 15:59 Alprazolam (Xanax) 1 mg Q8H PRN ORAL AGITATION 01/14/17 17:00 01/21/17 16:59 Amiodarone HCl (Cordarone) 200 mg DAILY ORAL 01/15/17 09:00 02/14/17 08:59 01/15/17 08:20 Apixaban (Eliquis) 5 mg BID ORAL 01/15/17 18:00 02/14/17 17:59 01/15/17 18:36 Atorvastatin Calcium (Lipitor) 80 mg BEDTIME ORAL 01/14/17 21:00 02/13/17 20:59 01/14/17 20:46 Cyclobenzaprine HCl (Flexeril) 10 mg BIDPRN PRN ORAL Muscle Spasms 01/14/17 17:00 02/13/17 16:59 Dextrose (Dextrose 50%) STAT PRN IV Hypoglycemia 01/14/17 16:00 02/13/17 15:59 Gabapentin (Neurontin) 300 mg BID ORAL 01/14/17 18:00 02/13/17 17:59 01/15/17 18:36 Lorazepam (Ativan 2mg/ml 1ml) 0.5 mg Q4H PRN IV For Anxiety 01/14/17 16:00 01/21/17 15:59 01/14/17 20:45 Metoprolol Tartrate 25 mg 25 mg Q12HR ORAL 01/14/17 21:00 02/13/17 20:59 01/15/17 08:20 Ondansetron HCl (Zofran) 4 mg Q6H PRN IVP Nausea & Vomiting 01/14/17 16:00 02/13/17 15:59 Polyethylene Glycol (Miralax) 17 gm HSPRN PRN ORAL Constipation 01/14/17 21:00 02/13/17 20:59 Sodium Chloride (Sodium Chloride 1000ml bag) 1,000 ml @ 75 mls/hr [id number] IV 01/14/17 18:30 02/13/17 18:29 01/15/17 08:19 Zolpidem Tartrate (Ambien) 5 mg HSPRN PRN ORAL Insomnia 01/14/17 21:00 02/13/17 20:59 Assessment/Plan Status: stable Assessment/Plan Anxiety d/o dementia will start Erik Awad M.D. Jan 15, 2017 19:23
[2017-01-15 20:00] VITALS: BP 144/72
[2017-01-15] MEDS: Atorvastatin 80mg tab ORAL SCH (21:44)
[2017-01-16] VITALS (7 sets, daily range): BP systolic 133–153; BP diastolic 67–94
[2017-01-16 07:13] LABS: BASOPHILS % (AUTO) 1.3 % (0.0-2.0); EOSINOPHILS % (AUTO) 4.6 % (0.0-3.0); LYMPHOCYTES % (AUTO) 20.3 % (20.0-45.0); MEAN CORPUSCULAR HEMOGLOBIN 24.3 PG (27.0-31.0); MEAN CORPUSCULAR HGB CONC 30.7 G/DL (32.0-36.0); MEAN CORPUSCULAR VOLUME 79 FL (80-99); MEAN PLATELET VOLUME 9.3 FL (6.5-10.1); MONOCYTES % (AUTO) 10.1 % (1.0-10.0); NEUTROPHILS % (AUTO) 63.7 % (45.0-75.0); PLATELET COUNT 210 K/UL (150-450); RED BLOOD COUNT 5.88 M/UL (4.20-5.40); RED CELL DISTRIBUTION WIDTH 14.5 % (11.6-14.8); WHITE BLOOD COUNT 8.9 K/UL (4.8-10.8)
[2017-01-16] MEDS: Metoprolol 25mg tab ORAL SCH ×2 (09:58→22:06)
[2017-01-16] MEDS: Amiodarone 200mg tab ORAL SCH (09:58)
[2017-01-16] MEDS: Eliquis 2.5mg tablet ORAL SCH ×2 (09:59→18:38)
--- NOTE | 2017-01-16 13:01 | Cardiology Progress Note ---
Assessment/Plan Problem List: (1) Atrial fibrillation (2) Knee pain (3) Recurrent falls (4) Pacemaker (5) Hypertension Status: stable, progressing Status Narrative Mrs. Verma is in AF - possibly permanent she is on amiodarone and ventricular rates are controlled. Anticoagulation has been started. She has neck pain - ? OA, ? muscle spasm Assessment/Plan continue metoprolol, apixaban. consider dc amiodarone if pt in permanent AF Will d/w Dr. Esquivel continue atorvastatin for hyperlipidemia Management of neck pain per PMD Subjective Subjective Mrs. Verma c/o neck pain. No dyspnea or palpitations Objective Last 24 Hour Vital Signs Date Time Temp Pulse Resp B/P Pulse Ox O2 Delivery O2 Flow Rate FiO2 01/16/17 11:30 97.0 89 20 146/86 95 Nasal Cannula 2.0 01/16/17 09:58 78 142/79 01/16/17 07:52 97.0 78 20 142/79 94 Nasal Cannula 2.0 01/16/17 04:00 97.1 89 21 146/82 89 Nasal Cannula 2.0 01/16/17 04:00 81 01/16/17 00:52 97.1 01/16/17 00:26 97.1 80 21 153/82 95 Nasal Cannula 2.0 01/16/17 00:00 86 01/15/17 21:43 102 158/79 01/15/17 20:00 98.1 94 21 144/72 100 Nasal Cannula 2.0 01/15/17 20:00 94 01/15/17 15:34 82 01/15/17 15:34 97.5 95 18 136/88 100 Nasal Cannula 2.0 General Appearance: WD/WN, alert, mild distress EENT: PERRL/EOMI Neck: supple, no JVD, limited range of motion, pain on motion Rhythm: Afib Cardiovascular: normal rate, no gallop/murmur, irregularly irregular Respiratory/Chest: lungs clear - clear anteriorly Abdomen: normal bowel sounds, non tender, soft Extremities: no swelling Intake and Output 01/15/17 01/16/17 19:00 07:00 Intake Total 1460 ml 1050 ml Balance 1460 ml 1050 ml Intake Oral 710 ml IV Total 750 ml 1050 ml # Voids 2 Laboratory Tests Test 01/16/17 05:15 White Blood Count 8.9 K/UL (4.8-10.8) Red Blood Count 5.88 M/UL (4.20-5.40) H Hemoglobin 14.3 G/DL (12.0-16.0) Hematocrit 46.6 % (37.0-47.0) Mean Corpuscular Volume 79 FL (80-99) L Mean Corpuscular Hemoglobin 24.3 PG (27.0-31.0) L Mean Corpuscular Hemoglobin Concent 30.7 G/DL (32.0-36.0) L Red Cell Distribution Width 14.5 % (11.6-14.8) Platelet Count 210 K/UL (150-450) Mean Platelet Volume 9.3 FL (6.5-10.1) Neutrophils (%) (Auto) 63.7 % (45.0-75.0) Lymphocytes (%) (Auto) 20.3 % (20.0-45.0) Monocytes (%) (Auto) 10.1 % (1.0-10.0) H Eosinophils (%) (Auto) 4.6 % (0.0-3.0) H Basophils (%) (Auto) 1.3 % (0.0-2.0) Microbiology Date/Time Source Procedure Growth Status 01/14/17 12:33 Blood Blood Culture - Preliminary NO GROWTH AFTER 24 HOURS Resulted 01/14/17 12:23 Blood Blood Culture - Preliminary NO GROWTH AFTER 24 HOURS Resulted 01/14/17 16:31 Nasal Nares MRSA Culture - Final NO METHICILLIN RESISTANT STAPH AUREUS... Complete 01/14/17 13:05 Urine,Clean Catch Urine Culture - Preliminary Resulted ANTWAN FERREIRA Jan 16, 2017 13:01
--- NOTE | 2017-01-16 13:26 | Pulmonology Progress Note ---
Assessment/Plan Problems: (1) Acute encephalopathy (2) Atrial fibrillation (3) Hypertension (4) Recurrent falls (5) Anemia (6) General weakness Assessment/Plan improving sill lot of pain bp and heart rate controlled optimize cardiac meds pt/op Subjective ROS Limited/Unobtainable: No Interval Events: late note for 01/15 Constitutional: Reports: no symptoms HEENT: Repors: no symptoms Allergies: Coded Allergies: MORPHINE (Verified Allergy, Severe, Hives, 10/12/12) HIVES Objective Last 24 Hour Vital Signs Date Time Temp Pulse Resp B/P Pulse Ox O2 Delivery O2 Flow Rate FiO2 01/16/17 11:30 97.0 89 20 146/86 95 Nasal Cannula 2.0 01/16/17 09:58 78 142/79 01/16/17 07:52 97.0 78 20 142/79 94 Nasal Cannula 2.0 01/16/17 04:00 97.1 89 21 146/82 89 Nasal Cannula 2.0 01/16/17 04:00 81 01/16/17 00:52 97.1 01/16/17 00:26 97.1 80 21 153/82 95 Nasal Cannula 2.0 01/16/17 00:00 86 01/15/17 21:43 102 158/79 01/15/17 20:00 98.1 94 21 144/72 100 Nasal Cannula 2.0 01/15/17 20:00 94 01/15/17 15:34 82 01/15/17 15:34 97.5 95 18 136/88 100 Nasal Cannula 2.0 Intake and Output 01/15/17 01/16/17 19:00 07:00 Intake Total 1460 ml 1050 ml Balance 1460 ml 1050 ml Intake Oral 710 ml IV Total 750 ml 1050 ml # Voids 2 General Appearance: WD/WN HEENT: normocephalic Respiratory/Chest: chest wall non-tender Breasts: no masses Cardiovascular: normal peripheral pulses Abdomen: normal bowel sounds Genitourinary: normal external genitalia Skin: no rash 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 Complete 01/14/17 13:05 Urine,Clean Catch Urine Culture - Preliminary Resulted Laboratory Tests 01/16/17 05:15: White Blood Count 8.9, Red Blood Count 5.88H, Hemoglobin 14.3, Hematocrit 46.6, Mean Corpuscular Volume 79L, Mean Corpuscular Hemoglobin 24.3L, Mean Corpuscular Hemoglobin Concent 30.7L, Red Cell Distribution Width 14.5, Platelet Count 210, Mean Platelet Volume 9.3, Neutrophils (%) (Auto) 63.7, Lymphocytes (%) (Auto) 20.3, Monocytes (%) (Auto) 10.1H, Eosinophils (%) (Auto) 4.6H, Basophils (%) (Auto) 1.3 Current Medications Medications (Trade) Dose Ordered Sig/Sarmad Route PRN Reason Start Time Stop Time Status Last Admin Dose Admin Acetaminophen (Tylenol) 650 mg Q4H PRN ORAL Fever/Headache/Mild Pain 01/14/17 20:00 02/13/17 19:59 01/15/17 08:22 Acetaminophen/ Hydrocodone Bitart ([place] 10/325) 1 ea Q6H PRN ORAL Pain 4-10 01/15/17 12:15 01/22/17 12:14 01/15/17 23:53 Al Hydroxide/Mg Hydroxide (Mylanta II) 30 ml Q6H PRN ORAL dyspepsia 01/14/17 16:00 02/13/17 15:59 Alprazolam (Xanax) 1 mg Q8H PRN ORAL AGITATION 01/14/17 17:00 01/21/17 16:59 Amiodarone HCl (Cordarone) 200 mg DAILY ORAL 01/15/17 09:00 02/14/17 08:59 01/16/17 09:58 Apixaban (Eliquis) 5 mg BID ORAL 01/15/17 18:00 02/14/17 17:59 01/16/17 09:59 Atorvastatin Calcium (Lipitor) 80 mg BEDTIME ORAL 01/14/17 21:00 02/13/17 20:59 01/15/17 21:44 Cyclobenzaprine HCl (Flexeril) 10 mg BIDPRN PRN ORAL Muscle Spasms 01/14/17 17:00 02/13/17 16:59 Dextrose (Dextrose 50%) STAT PRN IV Hypoglycemia 01/14/17 16:00 02/13/17 15:59 Gabapentin (Neurontin) 300 mg BID ORAL 01/14/17 18:00 02/13/17 17:59 01/16/17 09:57 Lorazepam (Ativan 2mg/ml 1ml) 0.5 mg Q4H PRN IV For Anxiety 01/14/17 16:00 01/21/17 15:59 01/14/17 20:45 Metoprolol Tartrate 25 mg 25 mg Q12HR ORAL 01/14/17 21:00 02/13/17 20:59 01/16/17 09:58 Ondansetron HCl (Zofran) 4 mg Q6H PRN IVP Nausea & Vomiting 01/14/17 16:00 02/13/17 15:59 Polyethylene Glycol (Miralax) 17 gm HSPRN PRN ORAL Constipation 01/14/17 21:00 02/13/17 20:59 Sodium Chloride (Sodium Chloride 1000ml bag) 1,000 ml @ 75 mls/hr [id number] IV 01/14/17 18:30 02/13/17 18:29 01/16/17 09:57 Zolpidem Tartrate (Ambien) 5 mg HSPRN PRN ORAL Insomnia 01/14/17 21:00 02/13/17 20:59 NIKO HARVEY Jan 16, 2017 13:26
--- NOTE | 2017-01-16 13:31 | Pulmonology Progress Note ---
Assessment/Plan Problems: (1) Acute encephalopathy (2) Atrial fibrillation (3) Recurrent falls (4) General weakness Assessment/Plan improving neck pain better bp and heart rate controlled optimize cardiac meds pt/op Subjective ROS Limited/Unobtainable: No Interval Events: doing better Allergies: Coded Allergies: MORPHINE (Verified Allergy, Severe, Hives, 10/12/12) HIVES Objective Last 24 Hour Vital Signs Date Time Temp Pulse Resp B/P Pulse Ox O2 Delivery O2 Flow Rate FiO2 01/16/17 11:30 97.0 89 20 146/86 95 Nasal Cannula 2.0 01/16/17 09:58 78 142/79 01/16/17 07:52 97.0 78 20 142/79 94 Nasal Cannula 2.0 01/16/17 04:00 97.1 89 21 146/82 89 Nasal Cannula 2.0 01/16/17 04:00 81 01/16/17 00:52 97.1 01/16/17 00:26 97.1 80 21 153/82 95 Nasal Cannula 2.0 01/16/17 00:00 86 01/15/17 21:43 102 158/79 01/15/17 20:00 98.1 94 21 144/72 100 Nasal Cannula 2.0 01/15/17 20:00 94 01/15/17 15:34 82 01/15/17 15:34 97.5 95 18 136/88 100 Nasal Cannula 2.0 Intake and Output 01/15/17 01/16/17 19:00 07:00 Intake Total 1460 ml 1050 ml Balance 1460 ml 1050 ml Intake Oral 710 ml IV Total 750 ml 1050 ml # Voids 2 General Appearance: WD/WN HEENT: normocephalic, atraumatic Respiratory/Chest: chest wall non-tender, lungs clear Breasts: no masses Cardiovascular: normal peripheral pulses Abdomen: normal bowel sounds, soft, non tender Genitourinary: normal external genitalia Extremities: no cyanosis Skin: no rash 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 Complete 01/14/17 13:05 Urine,Clean Catch Urine Culture - Preliminary Resulted Laboratory Tests 01/16/17 05:15: White Blood Count 8.9, Red Blood Count 5.88H, Hemoglobin 14.3, Hematocrit 46.6, Mean Corpuscular Volume 79L, Mean Corpuscular Hemoglobin 24.3L, Mean Corpuscular Hemoglobin Concent 30.7L, Red Cell Distribution Width 14.5, Platelet Count 210, Mean Platelet Volume 9.3, Neutrophils (%) (Auto) 63.7, Lymphocytes (%) (Auto) 20.3, Monocytes (%) (Auto) 10.1H, Eosinophils (%) (Auto) 4.6H, Basophils (%) (Auto) 1.3 Current Medications Medications (Trade) Dose Ordered Sig/Sarmad Route PRN Reason Start Time Stop Time Status Last Admin Dose Admin Acetaminophen (Tylenol) 650 mg Q4H PRN ORAL Fever/Headache/Mild Pain 01/14/17 20:00 02/13/17 19:59 01/15/17 08:22 Acetaminophen/ Hydrocodone Bitart ([place] 10/325) 1 ea Q6H PRN ORAL Pain 4-10 01/15/17 12:15 01/22/17 12:14 01/15/17 23:53 Al Hydroxide/Mg Hydroxide (Mylanta II) 30 ml Q6H PRN ORAL dyspepsia 01/14/17 16:00 02/13/17 15:59 Alprazolam (Xanax) 1 mg Q8H PRN ORAL AGITATION 01/14/17 17:00 01/21/17 16:59 Amiodarone HCl (Cordarone) 200 mg DAILY ORAL 01/15/17 09:00 02/14/17 08:59 01/16/17 09:58 Apixaban (Eliquis) 5 mg BID ORAL 01/15/17 18:00 02/14/17 17:59 01/16/17 09:59 Atorvastatin Calcium (Lipitor) 80 mg BEDTIME ORAL 01/14/17 21:00 02/13/17 20:59 01/15/17 21:44 Cyclobenzaprine HCl (Flexeril) 10 mg BIDPRN PRN ORAL Muscle Spasms 01/14/17 17:00 02/13/17 16:59 Dextrose (Dextrose 50%) STAT PRN IV Hypoglycemia 01/14/17 16:00 02/13/17 15:59 Gabapentin (Neurontin) 300 mg BID ORAL 01/14/17 18:00 02/13/17 17:59 01/16/17 09:57 Lorazepam (Ativan 2mg/ml 1ml) 0.5 mg Q4H PRN IV For Anxiety 01/14/17 16:00 01/21/17 15:59 01/14/17 20:45 Metoprolol Tartrate 25 mg 25 mg Q12HR ORAL 01/14/17 21:00 02/13/17 20:59 01/16/17 09:58 Ondansetron HCl (Zofran) 4 mg Q6H PRN IVP Nausea & Vomiting 01/14/17 16:00 02/13/17 15:59 Polyethylene Glycol (Miralax) 17 gm HSPRN PRN ORAL Constipation 01/14/17 21:00 02/13/17 20:59 Sodium Chloride (Sodium Chloride 1000ml bag) 1,000 ml @ 75 mls/hr [id number] IV 01/14/17 18:30 02/13/17 18:29 01/16/17 09:57 Zolpidem Tartrate (Ambien) 5 mg HSPRN PRN ORAL Insomnia 01/14/17 21:00 02/13/17 20:59 NIKO HARVEY Jan 16, 2017 13:31
--- NOTE | 2017-01-16 21:02 | General Progress Note ---
Assessment/Plan Status: stable, progressing Assessment/Plan Anxiety d/o cont xanax Subjective Neurologic/Psychiatric: Reports: anxiety, emotional problems Allergies: Coded Allergies: MORPHINE (Verified Allergy, Severe, Hives, 10/12/12) HIVES All Systems: reviewed and negative except above Objective Last 24 Hour Vital Signs Date Time Temp Pulse Resp B/P Pulse Ox O2 Delivery O2 Flow Rate FiO2 01/16/17 19:50 97.7 91 18 133/94 93 Room Air 01/16/17 16:00 80 01/16/17 15:55 80 01/16/17 15:36 97.2 105 18 136/67 95 Nasal Cannula 2.0 01/16/17 11:54 89 01/16/17 11:30 97.0 89 20 146/86 95 Nasal Cannula 2.0 01/16/17 09:58 78 142/79 01/16/17 07:52 97.0 78 20 142/79 94 Nasal Cannula 2.0 01/16/17 07:45 77 01/16/17 04:00 97.1 89 21 146/82 89 Nasal Cannula 2.0 01/16/17 04:00 81 01/16/17 00:52 97.1 01/16/17 00:26 97.1 80 21 153/82 95 Nasal Cannula 2.0 01/16/17 00:00 86 01/15/17 21:43 102 158/79 Intake and Output 01/15/17 01/16/17 19:00 07:00 Intake Total 1460 ml 1050 ml Balance 1460 ml 1050 ml Intake Oral 710 ml IV Total 750 ml 1050 ml # Voids 2 Laboratory Tests 01/16/17 05:15: White Blood Count 8.9, Red Blood Count 5.88H, Hemoglobin 14.3, Hematocrit 46.6, Mean Corpuscular Volume 79L, Mean Corpuscular Hemoglobin 24.3L, Mean Corpuscular Hemoglobin Concent 30.7L, Red Cell Distribution Width 14.5, Platelet Count 210, Mean Platelet Volume 9.3, Neutrophils (%) (Auto) 63.7, Lymphocytes (%) (Auto) 20.3, Monocytes (%) (Auto) 10.1H, Eosinophils (%) (Auto) 4.6H, Basophils (%) (Auto) 1.3 Height (Feet): 5 Height (Inches): 8.00 Weight (Pounds): 165 General Appearance: no apparent distress, alert Neurologic: alert, oriented x 3, responsive, depressed affect Erik Taylor M.D. Jan 16, 2017 21:02
[2017-01-16] MEDS: Atorvastatin 80mg tab ORAL SCH (22:04)
[2017-01-17 04:00] VITALS: BP 142/88
[2017-01-17 08:00] VITALS: BP 157/94
[2017-01-17] MEDS: Metoprolol 25mg tab ORAL SCH (10:13)
[2017-01-17] MEDS: Eliquis 2.5mg tablet ORAL SCH ×2 (10:13→18:00)
[2017-01-17] MEDS: Amiodarone 200mg tab ORAL SCH (10:13)
[2017-01-17 12:00] VITALS: BP 155/98
--- NOTE | 2017-01-17 12:12 | Pulmonology Progress Note ---
Assessment/Plan Problems: (1) Acute encephalopathy (2) Atrial fibrillation (3) Recurrent falls (4) General weakness Assessment/Plan improving neck pain better bp and heart rate controlled optimize cardiac meds pt/op cardiology recommended to dc Amiodarone will give one dose of Zosyn for pyuria, ( gram positive Cocci in urine) dc to long term Subjective ROS Limited/Unobtainable: No Constitutional: Reports: no symptoms HEENT: Repors: no symptoms Respiratory: Reports: no symptoms Gastrointestinal/Abdominal: Reports: no symptoms Allergies: Coded Allergies: MORPHINE (Verified Allergy, Severe, Hives, 10/12/12) HIVES Objective Last 24 Hour Vital Signs Date Time Temp Pulse Resp B/P Pulse Ox O2 Delivery O2 Flow Rate FiO2 01/17/17 10:13 66 157/94 01/17/17 08:00 97.9 66 20 157/94 94 Room Air 01/17/17 04:00 97.5 91 18 142/88 95 Room Air 01/17/17 04:00 96 01/17/17 00:00 102 01/16/17 23:50 97.7 111 20 140/85 90 Room Air 01/16/17 22:06 73 134/64 01/16/17 19:50 97.7 91 18 133/94 93 Room Air 01/16/17 19:45 108 01/16/17 16:00 80 01/16/17 15:55 80 01/16/17 15:36 97.2 105 18 136/67 95 Nasal Cannula 2.0 Intake and Output 01/16/17 01/17/17 19:00 07:00 Intake Total 240 ml 900 ml Output Total 700 ml Balance -460 ml 900 ml Intake Oral 240 ml IV Total 900 ml Output Urine Total 700 ml # Voids 7 4 General Appearance: WD/WN HEENT: normocephalic, atraumatic Respiratory/Chest: chest wall non-tender, lungs clear Breasts: no masses Cardiovascular: normal peripheral pulses, regular rhythm Abdomen: normal bowel sounds, soft, non tender Extremities: no cyanosis, no clubbing Microbiology Date/Time Source Procedure Growth Status 01/14/17 12:33 Blood Blood Culture - Preliminary NO GROWTH AFTER 48 HOURS Resulted 01/14/17 12:23 Blood Blood Culture - Preliminary NO GROWTH AFTER 48 HOURS Resulted 01/14/17 16:31 Nasal Nares MRSA Culture - Final NO METHICILLIN RESISTANT STAPH AUREUS... Complete 01/14/17 13:05 Urine,Clean Catch Urine Culture - Preliminary Gram Positive Cocci Resulted Current Medications Medications (Trade) Dose Ordered Sig/Sarmad Route PRN Reason Start Time Stop Time Status Last Admin Dose Admin Acetaminophen (Tylenol) 650 mg Q4H PRN ORAL Fever/Headache/Mild Pain 01/14/17 20:00 02/13/17 19:59 01/15/17 08:22 Acetaminophen/ Hydrocodone Bitart ([place] 10/325) 1 ea Q6H PRN ORAL Pain 4-10 01/15/17 12:15 01/22/17 12:14 01/15/17 23:53 Al Hydroxide/Mg Hydroxide (Mylanta II) 30 ml Q6H PRN ORAL dyspepsia 01/14/17 16:00 02/13/17 15:59 Alprazolam (Xanax) 1 mg Q8H PRN ORAL AGITATION 01/14/17 17:00 01/21/17 16:59 Amiodarone HCl (Cordarone) 200 mg DAILY ORAL 01/15/17 09:00 02/14/17 08:59 01/17/17 10:13 Apixaban (Eliquis) 5 mg BID ORAL 01/15/17 18:00 02/14/17 17:59 01/17/17 10:13 Atorvastatin Calcium (Lipitor) 80 mg BEDTIME ORAL 01/14/17 21:00 02/13/17 20:59 01/16/17 22:04 Cyclobenzaprine HCl (Flexeril) 10 mg BIDPRN PRN ORAL Muscle Spasms 01/14/17 17:00 02/13/17 16:59 Dextrose (Dextrose 50%) STAT PRN IV Hypoglycemia 01/14/17 16:00 02/13/17 15:59 Gabapentin (Neurontin) 300 mg BID ORAL 01/14/17 18:00 02/13/17 17:59 01/17/17 10:13 Lorazepam (Ativan 2mg/ml 1ml) 0.5 mg Q4H PRN IV For Anxiety 01/14/17 16:00 01/21/17 15:59 01/14/17 20:45 Metoprolol Tartrate 25 mg 25 mg Q12HR ORAL 01/14/17 21:00 02/13/17 20:59 01/17/17 10:13 Ondansetron HCl (Zofran) 4 mg Q6H PRN IVP Nausea & Vomiting 01/14/17 16:00 02/13/17 15:59 Polyethylene Glycol (Miralax) 17 gm HSPRN PRN ORAL Constipation 01/14/17 21:00 02/13/17 20:59 Sodium Chloride (Sodium Chloride 1000ml bag) 1,000 ml @ 75 mls/hr [id number] IV 01/14/17 18:30 02/13/17 18:29 01/16/17 23:18 Zolpidem Tartrate (Ambien) 5 mg HSPRN PRN ORAL Insomnia 01/14/17 21:00 02/13/17 20:59 NIKO HARVEY Jan 17, 2017 12:12
[2017-01-17] MEDS ORDERED: Piperacillin/Tazobactam 3.375 GM in D5W 110 ML IVPB SCH (14:00)
[2017-01-17 16:00] VITALS: BP 151/95
--- NOTE | 2017-01-17 18:28 | Cardiology Report ---
APPROVED REPORT EKG Measurement Heart [id number] Atrial fibrillation Ventricular paced complexes on demand with fusion complexes Abnormal ECG
--- NOTE | 2017-01-17 19:38 | General Progress Note ---
Assessment/Plan Assessment/Plan Anxiety d/o cont xanax Subjective Neurologic/Psychiatric: Reports: depressed, emotional problems Allergies: Coded Allergies: MORPHINE (Verified Allergy, Severe, Hives, 10/12/12) HIVES All Systems: reviewed and negative except above Subjective the pt is doing well. Objective Last 24 Hour Vital Signs Date Time Temp Pulse Resp B/P Pulse Ox O2 Delivery O2 Flow Rate FiO2 01/17/17 16:00 97.7 91 20 151/95 95 Room Air 01/17/17 12:00 98.2 64 20 155/98 95 Room Air 01/17/17 12:00 86 01/17/17 10:13 66 157/94 01/17/17 08:00 97.9 66 20 157/94 94 Room Air 01/17/17 08:00 104 01/17/17 04:00 97.5 91 18 142/88 95 Room Air 01/17/17 04:00 96 01/17/17 00:00 102 01/16/17 23:50 97.7 111 20 140/85 90 Room Air 01/16/17 22:06 73 134/64 01/16/17 19:50 97.7 91 18 133/94 93 Room Air 01/16/17 19:45 108 Intake and Output 01/16/17 01/17/17 19:00 07:00 Intake Total 240 ml 900 ml Output Total 700 ml Balance -460 ml 900 ml Intake Oral 240 ml IV Total 900 ml Output Urine Total 700 ml # Voids 7 4 Height (Feet): 5 Height (Inches): 8.00 Weight (Pounds): 165 General Appearance: no apparent distress, alert Neurologic: abnormal gait, responsive, depressed affect Erik Taylor M.D. Jan 17, 2017 19:38
[2017-01-18] MEDS ORDERED: ELIQUIS5 MG PO (10:12)
[2017-01-18] MEDS ORDERED: METOPROLOL TART25 MG ORAL (10:12)
--- NOTE | 2017-01-18 10:18 | Discharge Summary ---
Discharge Summary Hospital Course Date of Admission Jan 14, 2017 at 12:55 Date of Discharge Jan 17, 2017 at 19:49 Admitting Diagnosis ams HPI Marly Verma is a 76 year old female who was admitted on Jan 14, 2017 at 12:55 for Altered Mental Status Hospital Course dc summary #[id number] Discharge Medications New Medications: Apixaban (Eliquis) 5 Mg Tablet 5 MG PO BID, #60 TAB Metoprolol Tartrate* (Metoprolol Tartrate*) 25 Mg Tablet 25 MG ORAL EVERY 12 HOURS, #60 TAB Continued Medications: Acetaminophen* (Acetaminophen 325MG Tablet*) 325 Mg Tablet 650 MG ORAL Q4H PRN for 30 Days, TAB Alprazolam* (Xanax*) 0.25 Mg Tablet 1 MG ORAL TID Aspirin* (Aspirin*) 81 Mg Tab.chew 81 MG ORAL DAILY for 30 Days, TAB Atorvastatin (Lipitor) 80 Mg Tab 80 MG ORAL BEDTIME, #30 TAB Bisacodyl* (Dulcolax*) 5 Mg Tablet.dr 10 MG RC DAILY PRN for Constipation, #10 TAB 0 Refills Cyclobenzaprine Hcl* (Flexeril*) 10 Mg Tablet 10 MG ORAL BID, TAB Digoxin* (Digoxin*) 250 Mcg Tablet 0.25 MG ORAL DAILY, TAB Diphenhydramine HCl (Diphenhydramine HCl) 50 Mg/1 Ml Vial 25 MG IVP Q6H PRN for 30 Days, #30 VIAL Docusate Sodium* (Docusate Sodium*) 100 Mg Capsule 100 MG ORAL DAILY, CAP Escitalopram Oxalate* (Lexapro*) 10 Mg Tablet 10 MG ORAL DAILY, TAB Gabapentin (Neurontin) 300 Mg Capsule 300 MG ORAL BID for 30 Days, CAP Hydrocodone Bit/Acetaminophen 5-325* ([place] 5-325*) 1 Each Tablet 1 TAB ORAL Q4H PRN for 30 Days, TAB Lidocaine (Lidoderm) 1 Each Adh..patch 1 PATCH TDERMAL DAILY for 10 Days, PATCH Magnesium Hydroxide* (Milk Of Magnesia*) 400 Mg/5 Ml Oral.susp 30 ML ORAL DAILY, ML Multivitamin With Minerals (Multivitamins With Minerals*) 1 Each Tablet 1 TAB ORAL DAILY, TAB Tizanidine Hcl (Zanaflex*) 4 Mg Tablet 4 MG ORAL PRN for For Pain, TAB 0 Refills Zolpidem Tartrate* (Ambien*) 5 Mg Tablet 5 MG ORAL BEDTIME Discontinued Medications: Amiodarone Hcl (Amiodarone Hcl) 100 Mg Tablet 200 MG ORAL DAILY for 30 Days, TAB Carvedilol (Coreg) 12.5 Mg Tablet 12.5 MG ORAL EVERY 12 HOURS for 30 Days, TAB Gabapentin* (Gabapentin*) 300 Mg Capsule 300 MG PO QHS Discharge Condition Upon Discharge: stable Discharge Disposition Patient was discharged to [facility] (04) Discharge Diagnoses: Discharge Instructions Discharge Instructions Special Instructions I have been assigned to complete a D/C Summary on this account. I was not involved in the patient management Viviane Peguero NP ([place]) Jan 18, 2017 10:18
--- NOTE | 2017-01-19 09:01 | Discharge Summary 2 SIG ---
DATE OF ADMISSION: 01/14/2017 DATE OF DISCHARGE: 01/17/2017 REASON FOR ADMISSION: 76-year-old female with history of chronic obstructive pulmonary disease, atrial fibrillation, pacemaker, Alzheimer dementia, and osteoarthritis, was brought for weakness and hypotension for further evaluation. The patient reported feeling weak. She denied any chest pain or any shortness of breath. She did appear to be somnolent. Workup in the emergency room revealed that the patient had no leukocytosis. No fever. Lactic acid was within normal limits. Pro BNP -1907. Urinalysis was consistent with urinary tract infection. EKG showed atrial fibrillation with a controlled rate, ventricular pacing. Chest x-ray revealed no acute cardiopulmonary disease. The patient was admitted for further management. ADMITTING DIAGNOSES: 1. Acute encephalopathy. 2. Atrial fibrillation. 3. Hypotension. 4. Dehydration. 5. Urinary tract infection. 6. Recurrent falls. HOSPITAL COURSE: The patient was admitted. Cardiology and psychiatric consults were requested. Per Cardiology, the patient had permanent atrial fibrillation. She needs to be on anticoagulation to decrease risk of stroke. The patient was started on Eliquis and to be continued at the long-term facility. Rate was controlled with beta-mary, to be continued at the long-term facility and titrate dose as needed. Amiodarone was stopped. No digoxin. Statin was continued. An echocardiogram, which was done on 12/06/2016 , revealed preserved ejection fraction of 55%. Initially hypotensive, likely related to dehydration. The patient initially was on gentle IV fluids. Hypotension resolved with gentle hydration. Renal parameters and electrolytes were closely monitored. Nephrotoxics were avoided. Renal parameters remained stable. Acute encephalopathy resolved, likely due to combined effect of dehydration and UTI . patient with underlying chronic Alzheimer dementia. Mental status returned to baseline. Urinalysis was consistent with evidence of urinary tract infection. Urine culture grew Enterococci. The patient was on antibiotic while in the hospital. The patient was working with physical and occupational therapists. Psychiatrist had seen and evaluated the patient and diagnosed her with anxiety disorder, started on small dose of Xanax. Anxiety controlled. The patient was stable for discharge DISCHARGE DIAGNOSES: 1. Acute encephalopathy. 2. Permanent atrial fibrillation. 3. Hypotension, resolved. 4. Dehydration, resolved. 5. Urinary tract infection with Enterococci. 6. Recurrent falls. 7. History of hypertension. 8. Pacemaker. 9. Hyperlipidemia. 10. Anxiety disorder. DISCHARGE INSTRUCTIONS: The patient was discharged to long-term facility for PT and OT to improve functional status. FOLLOWUP: Follow up with medical doctor at the facility. DISCHARGE MEDICATIONS: See medication reconciliation list. Seven Gomez M.D. I have been assigned to dictate discharge summary on this account and I was not involved in the patient's management. Viviane yatesGm sorenson DR: BRUCE JOB#: [id number] CC: POLLY
--- NOTE | 2017-01-19 19:27 | Diagnostic Imaging Report ---
APPROVED REPORT CPT Code: 78596 Present Symptoms Lower Extremity Pain: Bilateral Shortness of breath BILATERAL: Imaging reveals a patent deep venous system bilaterally. There is no evidence of thrombus within the femoral, popliteal or tibial segments. The greater saphenous veins are also within normal limits. Doppler indicates normal spontaneous flow within these segments.
== END 2017-01-17 19:49 | DRG 689 ==
LOC: EDBD 12:10 → EMR 12:45 → 4E 12:55 → EDBEDREQ 13:30 → EDBEDREQSVC 14:19 → EDBEDREQ 14:19 → 2E 15:52
DX: N39.0 Urinary tract infection, site not specified (principal); G93.40 Encephalopathy, unspecified; I95.9 Hypotension, unspecified; I48.2 Chronic atrial fibrillation; E86.0 Dehydration; G30.9 Alzheimer's disease, unspecified; F02.80 Dementia in other diseases classified elsewhere, unspecified severity, without behavioral disturbance, psychotic disturbance, mood disturbance, and anxiety; Z88.6 Allergy status to analgesic agent; Z91.81 History of falling; M19.90 Unspecified osteoarthritis, unspecified site; B95.2 Enterococcus as the cause of diseases classified elsewhere; Z95.0 Presence of cardiac pacemaker; E78.5 Hyperlipidemia, unspecified; F41.9 Anxiety disorder, unspecified; I25.2 Old myocardial infarction; I10 Essential (primary) hypertension
CPT/HCPCS: 36415; 71010; 80053; 80061; 80162; 81003; 82550; 82553; 83605; 83690; 83880; 84443; 84484; 85025; 85610; 85730; 87040; 87081; 87086; 87181; 93005; 93970

== ENCOUNTER 2017-12-22 21:41 | Inpatient (IN) | payer MEDICARE, MEDICAID ==
[~2017-12-22] VITALS: Ht 162.6 cm; Wt 74.8 kg
[~2017-12-22 21:41] MED LIST changes: +ELIQUIS5 MG PO; +METOPROLOL TART25 MG ORAL
--- NOTE | 2017-12-22 21:47 | Emergency Room Report ---
History of Present Illness General Chief Complaint: Dyspnea/Respdistress Source: Medical Record, EMS Present Illness HPI Is a 77-year-old female with a history of COPD, hypertension, CAD, A. fib on anticoagulation. She presents with chief complaint of shortness of breath. She 's been complaining increasing shortness of breath the last one to 2 weeks. Worse today. Per EMS she was in respiratory distress with hypoxia. Her room air oxidation was in the mid 80 percentile. They put her on oxygen and gave her nitroglycerin 3 spray. She says she fell a bit better. No fever chills but no chest pain. Worse with any exertion. She lives at home in a hospital bed. Allergies: Coded Allergies: MORPHINE (Verified Allergy, Severe, Hives, 10/12/12) HIVES Patient History Past Medical History: see triage record, old chart reviewed, HTN, CAD, CHF, AFib Past Surgical History: other Pertinent Family History: none Social History: Denies: smoking Last Menstrual Period: n/a Now: No Immunizations: other Reviewed Nursing Documentation: PMH: Agreed; PSxH: Agreed Nursing Documentation-PMH Hx Cardiac Problems: Yes - chf Hx Hypertension: Yes Hx Pacemaker: Yes - Pacemaker inserted in left chest in August 24, 2016 Hx Asthma: Yes Hx Diabetes: Yes - dm2 Hx Cancer: No Hx Gastrointestinal Problems: No Hx Neurological Problems: Yes - Muscle weakness, polyneuropathy Hx Cerebrovascular Accident: Yes Hx Dementia: Yes Hx Alzheimer's Disease: Yes Hx Headaches: Yes Review of Systems Respiratory: Reports: shortness of breath, MARIN All Other Systems: limited - patient condition Physical Exam Vital Signs Date Time Temp Pulse Resp B/P (MAP) Pulse Ox O2 Delivery O2 Flow Rate FiO2 12/22/17 21:37 97.5 132 18 98 Non-Rebreather 15.0 97.5 vitals with tachycardia Sp02 EP Interpretation: reviewed, abnormal General Appearance: well appearing, alert, moderate distress, obese Head: normocephalic, atraumatic Eyes: bilateral eye PERRL, bilateral eye EOMI ENT: hearing grossly normal, normal pharynx Neck: full range of motion, supple, no meningismus Respiratory: chest non-tender, respiratory distress, decreased breath sounds, accessory muscle use, rales Cardiovascular #1: no murmur, tachycardia, irregularly irregular Gastrointestinal: normal bowel sounds, non tender, no mass, no organomegaly, no bruit, non-distended Musculoskeletal: back normal, normal range of motion Neurologic: alert, oriented x3 Psychiatric: mood/affect normal Skin: warm/dry Procedures Critical Care Time Critical Care Time Critical care is mandated in this patient who presented with respiratory distress from infection and rapid A. fib. Patient require my urgent intervention to attenuate the risks of metabolic collapse which may lead to cardiovascular collapse and . Critical care time is 35 minutes excluding any reportable procedure. Critical care time included evaluation, multiple reevaluation, looking at old charts, interpreting laboratory and diagnostic data , discussing case with patient and family and consultants, and charting. Medical Decision Making Diagnostic Impression: Primary Impression: Rapid atrial fibrillation Additional Impressions: Respiratory failure with hypoxia Qualified Codes: J96.21 - Acute and chronic respiratory failure with hypoxia Acute exacerbation of CHF (congestive heart failure) Qualified Codes: I50.9 - Heart failure, unspecified UTI (urinary tract infection) Qualified Codes: N30.00 - Acute cystitis without hematuria ER Course Patient presents with acute respiratory or distress secondary to COPD exacerbation and CHF worsened by rapid A. fib. Rate is now controlled. Antibiotics given. Much more comfortable on BiPAP. Will admit. I discussed the case with Dr. Gomez who admitted the patient last time. He will admit the patient. Lab Results Impression labs with elevated BNP EKG Diagnostic Results Rate: tachycardiac Rhythm: other - afib ST Segments: other - NSST changes ASA given to the pt in ED: No Rhythm Strip Diag. Results Rhythm Strip Time: 22:19 EP Interpretation: yes Rate: 100 Rhythm: no PVC's, no ectopy, other - afib Chest X-Ray Diagnostic Results Chest X-Ray Diagnostic Results : Chest X-Ray Ordered: Yes # of Views/Limited/Complete: 1 View Indication: Shortness of Breath EP Interpretation: Yes Interpretation: no consolidation, no effusion, no pneumothorax, other - and cardiomegaly with vascular congestion Impression: Other - CHF Electronically Signed by: Dick Mcneil MD Last Vital Signs Date Time Temp Pulse Resp B/P (MAP) Pulse Ox O2 Delivery O2 Flow Rate FiO2 7/18 21:37 97.5 132 18 98 Non-Rebreather 15.0 97.5 Status: improved Disposition: ADMITTED INPATIENT Condition: Serious DICK MCNEIL M.D. Dec 22, 2017 21:47
[2017-12-22] MEDS ORDERED: dilTIAZem HCl 25mg/5ml Inj IVP ONE (22:00)
[2017-12-22 22:03] VITALS: BP 115/68
[2017-12-22 22:17] LABS: BASOPHILS % (AUTO) 0.9 % (0.0-2.0); EOSINOPHILS % (AUTO) 1.4 % (0.0-3.0); HEMATOCRIT 45.2 % (37.0-47.0); HEMOGLOBIN 13.7 G/DL (12.0-16.0); LYMPHOCYTES % (AUTO) 6.2 % (20.0-45.0); MEAN CORPUSCULAR VOLUME 81 FL (80-99); NEUTROPHILS % (AUTO) 84.7 % (45.0-75.0); PLATELET COUNT 198 K/UL (150-450); RED BLOOD COUNT 5.56 M/UL (4.20-5.40); RED CELL DISTRIBUTION WIDTH 15.2 % (11.6-14.8); WHITE BLOOD COUNT 16.5 K/UL (4.8-10.8)
[2017-12-22 22:28] LABS: ANION GAP 3 mmol/L (5-15); BLOOD UREA NITROGEN 17 mg/dL (7-18); CALCIUM 9.1 MG/DL (8.5-10.1); CARBON DIOXIDE 32 MMOL/L (21-32); CHLORIDE 104 MMOL/L (98-107); CREATININE 0.9 MG/DL (0.55-1.30); POTASSIUM 4.8 MMOL/L (3.5-5.1); SODIUM 139 MMOL/L (136-145)
[2017-12-22 22:43] LABS: ALANINE AMINOTRANSFERASE 25 U/L (12-78); ALBUMIN 3.2 G/DL (3.4-5.0); ALBUMIN/GLOBULIN RATIO 0.8 (1.0-2.7); ALKALINE PHOSPHATASE 62 U/L (46-116); ASPARTATE AMINO TRANSFERASE 16 U/L (15-37); BILIRUBIN,TOTAL 0.3 MG/DL (0.2-1.0); CKMB 0.5 NG/ML (0.0-3.6); CREATINE KINASE 7 U/L (26-308)
[2017-12-22] MEDS ORDERED: Albuterol/Ipratropium 3ml neb HHN ONE (23:00)
[2017-12-22] MEDS ORDERED: Solu-MEDROL 125mg Inj IVP ONE (23:00)
[2017-12-22 23:02] LABS: APPEARANCE,URINE CLOUDY; BILIRUBIN, URINE NEGATIVE (NEGATIVE); COLOR,URINE PALE YELLOW; GLUCOSE, URINE (UA) NEGATIVE (NEGATIVE); KETONES,URINE NEGATIVE (NEGATIVE); LEUKOCYTE ESTERASE ,URINE 3+ (NEGATIVE); NITRITE,URINE POSITIVE (NEGATIVE); PH,URINE 7 (4.5-8.0); PROTEIN,URINE NEGATIVE (NEGATIVE); UROBILINOGEN,URINE NORMAL MG/DL (0.0-1.0)
[2017-12-22 23:06] VITALS: BP 101/71
[2017-12-22] MEDS ORDERED: cefTRIAXone 1 GM in NS 55 ML IVPB ONE (23:15)
[2017-12-22] MEDS ORDERED: Albuterol/Ipratropium 3ml neb HHN PRN (23:15)
[2017-12-22] MEDS ORDERED: Miralax 17gm pkt ORAL PRN (23:15)
[2017-12-22] MEDS ORDERED: ALPRAZolam 0.25mg tab ORAL SCH (23:23)
[2017-12-22] MEDS ORDERED: Cyclobenzaprine 10mg Tab ORAL SCH (23:24)
[2017-12-22] MEDS ORDERED: Atorvastatin 80mg tab ORAL SCH (23:24)
[2017-12-22] MEDS ORDERED: cefTRIAXone 1 GM in NS 55 ML IVPB SCH (23:30)
[2017-12-22] MEDS ORDERED: Metoprolol 25mg tab ORAL SCH (23:35)
[2017-12-22] MEDS ORDERED: Heparin 5000 units/ml inj SUBQ SCH (23:36)
[2017-12-23] VITALS (7 sets, daily range): BP systolic 94–161; BP diastolic 49–102
[2017-12-23 07:21] LABS: MEAN CORPUSCULAR VOLUME 81 FL (80-99); PLATELET COUNT 183 K/UL (150-450); RED BLOOD COUNT 5.55 M/UL (4.20-5.40); WHITE BLOOD COUNT 15.9 K/UL (4.8-10.8)
[2017-12-23 07:47] LABS: ALBUMIN 2.9 G/DL (3.4-5.0); ANION GAP 8 mmol/L (5-15); BLOOD UREA NITROGEN 19 mg/dL (7-18); CALCIUM 9.2 MG/DL (8.5-10.1); CARBON DIOXIDE 29 MMOL/L (21-32); CHLORIDE 101 MMOL/L (98-107); PHOSPHORUS 3.8 MG/DL (2.5-4.9); POTASSIUM 4.2 MMOL/L (3.5-5.1); SODIUM 138 MMOL/L (136-145)
[2017-12-23] MEDS: Aspirin Baby 81mg ORAL SCH (10:11)
[2017-12-23] MEDS: Cyclobenzaprine 10mg Tab ORAL SCH ×2 (10:13→17:49)
[2017-12-23] MEDS: ALPRAZolam 0.25mg tab ORAL SCH ×3 (10:13→17:52)
[2017-12-23] MEDS: Heparin 5000 units/ml inj SUBQ SCH ×2 (10:14→21:23)
[2017-12-23] MEDS: Metoprolol 25mg tab ORAL SCH ×2 (10:14→21:21)
--- NOTE | 2017-12-23 11:13 | Diagnostic Imaging Report ---
Indication: Dyspnea Comparison: 01/14/2017 A single view chest radiograph was obtained. Findings: No definite infiltrate or pulmonary vascular congestion identified. There is a pacemaker noted on the left. Cervical fusion hardware noted. The heart is enlarged. Mild platelike atelectasis at the left lung base again noted. The aorta is mildly enlarged consistent with atherosclerotic vascular disease. The bones are osteopenic. Impression: No acute disease
--- NOTE | 2017-12-23 11:43 | History and Physical ---
History of Present Illness General Date patient seen: Dec 23, 2017 Reason for Hospitalization: Dyspnea/Respdistress Present Illness HPI 77-year-old female with a history of COPD, hypertension, CAD, A. fib on anticoagulation brought in by paramedics with chief complaint of shortness of breath. She's been complaining increasing shortness of breath the last one to 2 weeks. She was in respiratory distress with hypoxia on arrival to ER. Her room air oxidation was in the mid 80 percentile in the field. They put her on oxygen and gave her nitroglycerin 3 spray. She says she fell a bit better. No fever chills but no chest pain. Worse with any exertion. She lives at home in a hospital bed. Allergies: Coded Allergies: MORPHINE (Verified Allergy, Severe, Hives, 10/12/12) HIVES Medication History Scheduled Alprazolam* (Xanax*), 1 MG ORAL TID, (Reported) Apixaban (Eliquis), 5 MG PO BID Aspirin* (Aspirin*), 81 MG ORAL DAILY Atorvastatin (Lipitor), 80 MG ORAL BEDTIME Cyclobenzaprine Hcl* (Flexeril*), 10 MG ORAL BID, (Reported) Digoxin* (Digoxin*), 0.25 MG ORAL DAILY, (Reported) Docusate Sodium* (Docusate Sodium*), 100 MG ORAL DAILY, (Reported) Escitalopram Oxalate* (Lexapro*), 10 MG ORAL DAILY, (Reported) Gabapentin (Neurontin), 300 MG ORAL BID Lidocaine (Lidoderm), 1 PATCH TDERMAL DAILY Magnesium Hydroxide* (Milk Of Magnesia*), 30 ML ORAL DAILY, (Reported) Metoprolol Tartrate* (Metoprolol Tartrate*), 25 MG ORAL EVERY 12 HOURS Multivitamin With Minerals (Multivitamins With Minerals*), 1 TAB ORAL DAILY, ( Reported) Zolpidem Tartrate* (Ambien*), 5 MG ORAL BEDTIME, (Reported) Scheduled PRN Acetaminophen* (Acetaminophen 325MG Tablet*), 650 MG ORAL Q4H PRN Bisacodyl* (Dulcolax*), 10 MG RC DAILY PRN for Constipation, (Reported) Diphenhydramine HCl (Diphenhydramine HCl), 25 MG IVP Q6H PRN Hydrocodone Bit/Acetaminophen 5-325* ([place] 5-325*), 1 TAB ORAL Q4H PRN Tizanidine Hcl (Zanaflex*), 4 MG ORAL for For Pain, (Reported) Patient History Healthcare decision maker Resuscitation status Full Code Advanced Directive on File Past Medical/Surgical History Past Medical/Surgical History: (1) Pacemaker (2) L1 vertebral fracture Review of Systems Respiratory: Reports: shortness of breath Physical Exam General Appearance: WD/WN Lines, tubes and drains: peripheral, central line HEENT: normocephalic, atraumatic Neck: non-tender, normal alignment, supple Respiratory/Chest: rhonchi - left, rhonchi - right Breasts: no masses Cardiovascular/Chest: normal peripheral pulses, normal rate Abdomen: normal bowel sounds, non tender Genitourinary/Rectal: normal genital exam Extremities: normal range of motion Last 24 Hour Vital Signs Date Time Temp Pulse Resp B/P (MAP) Pulse Ox O2 Delivery O2 Flow Rate FiO2 12/23/17 10:14 90 94/72 12/23/17 10:13 98.4 12/23/17 10:11 90 12/23/17 07:09 80 18 98 Facial 45 12/23/17 05:22 45 12/23/17 05:17 94 18 98 Facial 45 12/23/17 04:00 98.4 78 30 161/102 98 Bi-pap 45 98.4 12/23/17 03:57 99 12/23/17 03:12 97 20 97 Facial 45 12/23/17 01:27 45 12/23/17 00:41 98 12/23/17 00:40 98 19 97 Facial 45 12/23/17 00:35 96.8 93 16 97/61 90 Bi-pap 45 96.8 12/23/17 00:00 99 23 100/49 97 Bi-pap 45 12/22/17 23:10 101 23 98 Bi-pap 45 12/22/17 23:06 101 23 101/71 98 Bi-pap 45 12/22/17 22:59 92 21 96 Bi-pap 45 12/22/17 22:31 104 20 96 Facial 45 12/22/17 22:06 125 115/68 12/22/17 22:03 125 23 115/68 96 Bi-pap 45 12/22/17 21:55 143 16 95 Facial 45 12/22/17 21:54 143 16 Bi-pap 45 12/22/17 21:50 132 18 Non-Rebreather 15.0 12/22/17 21:37 97.5 132 18 112/68 98 Non-Rebreather 15.0 97.5 Intake and Output 12/22/17 12/23/17 19:00 07:00 Intake Total 0 ml Output Total 900 ml Balance -900 ml Intake Oral 0 ml Output Urine Total 900 ml Laboratory Tests Test 12/22/17 21:52 12/22/17 21:59 12/22/17 22:55 12/23/17 06:25 White Blood Count 16.5 K/UL (4.8-10.8) H 15.9 K/UL (4.8-10.8) H Red Blood Count 5.56 M/UL (4.20-5.40) H 5.55 M/UL (4.20-5.40) H Hemoglobin 13.7 G/DL (12.0-16.0) 14.0 G/DL (12.0-16.0) Hematocrit 45.2 % (37.0-47.0) 45.0 % (37.0-47.0) Mean Corpuscular Volume 81 FL (80-99) 81 FL (80-99) Mean Corpuscular Hemoglobin 24.6 PG (27.0-31.0) L 25.3 PG (27.0-31.0) L Mean Corpuscular Hemoglobin Concent 30.3 G/DL (32.0-36.0) L 31.1 G/DL (32.0-36.0) L Red Cell Distribution Width 15.2 % (11.6-14.8) H 15.0 % (11.6-14.8) H Platelet Count 198 K/UL (150-450) 183 K/UL (150-450) Mean Platelet Volume 7.5 FL (6.5-10.1) 7.7 FL (6.5-10.1) Neutrophils (%) (Auto) 84.7 % (45.0-75.0) H % (45.0-75.0) Lymphocytes (%) (Auto) 6.2 % (20.0-45.0) L % (20.0-45.0) Monocytes (%) (Auto) 7.0 % (1.0-10.0) % (1.0-10.0) Eosinophils (%) (Auto) 1.4 % (0.0-3.0) % (0.0-3.0) Basophils (%) (Auto) 0.9 % (0.0-2.0) % (0.0-2.0) Sodium Level 139 MMOL/L (136-145) 138 MMOL/L (136-145) Potassium Level 4.8 MMOL/L (3.5-5.1) 4.2 MMOL/L (3.5-5.1) Chloride Level 104 MMOL/L (98-107) 101 MMOL/L (98-107) Carbon Dioxide Level 32 MMOL/L (21-32) 29 MMOL/L (21-32) Anion Gap 3 mmol/L (5-15) L 8 mmol/L (5-15) Blood Urea Nitrogen 17 mg/dL (7-18) 19 mg/dL (7-18) H Creatinine 0.9 MG/DL (0.55-1.30) 1.0 MG/DL (0.55-1.30) Estimat Glomerular Filtration Rate mL/min (>60) mL/min (>60) Glucose Level 138 MG/DL (74-106) H 213 MG/DL (74-106) H Calcium Level 9.1 MG/DL (8.5-10.1) 9.2 MG/DL (8.5-10.1) Total Bilirubin 0.3 MG/DL (0.2-1.0) Aspartate Amino Transf (AST/SGOT) 16 U/L (15-37) Alanine Aminotransferase (ALT/SGPT) 25 U/L (12-78) Alkaline Phosphatase 62 U/L (46-116) Total Creatine Kinase 7 U/L (26-308) L Creatine Kinase MB 0.5 NG/ML (0.0-3.6) Creatine Kinase MB Relative Index 7.1 Troponin I 0.002 ng/mL (0.000-0.056) Pro-B-Type Natriuretic Peptide 8134 pg/mL (0-125) H Total Protein 7.0 G/DL (6.4-8.2) Albumin 3.2 G/DL (3.4-5.0) L 2.9 G/DL (3.4-5.0) L Globulin 3.8 g/dL Albumin/Globulin Ratio 0.8 (1.0-2.7) L Digoxin Level < 0.2 NG/ML (0.9-2.0) L Arterial Blood pH 7.166 (7.350-7.450) Arterial Blood Partial Pressure CO2 86.6 mmHg (35.0-45.0) *H Arterial Blood Partial Pressure O2 84.4 mmHg (75.0-100.0) Arterial Blood HCO3 30.6 mmol/L (22.0-26.0) H Arterial Blood Oxygen Saturation 94.4 % (92.0-98.0) Arterial Blood Base Excess -0.6 Lazaro Test Positive Prothrombin Time 10.6 SEC (9.30-11.50) Prothromb Time International Ratio 1.0 (0.9-1.1) Activated Partial Thromboplast Time 31 SEC (23-33) Urine Color Pale yellow Urine Appearance Cloudy Urine pH 7 (4.5-8.0) Urine Specific [place] 1.010 (1.005-1.035) Urine Protein Negative (NEGATIVE) Urine Glucose (UA) Negative (NEGATIVE) Urine Ketones Negative (NEGATIVE) Urine Occult Blood 3+ (NEGATIVE) H Urine Nitrite Positive (NEGATIVE) H Urine Bilirubin Negative (NEGATIVE) Urine Urobilinogen Normal MG/DL (0.0-1.0) Urine Leukocyte Esterase 3+ (NEGATIVE) H Urine RBC 10-15 /HPF (0 - 2) H Urine WBC Tntc /HPF (0 - 2) H Urine Squamous Epithelial Cells Occasional /LPF Urine Bacteria Many /HPF (NONE) H Differential Total Cells Counted 100 Neutrophils % (Manual) 91 % (45-75) H Lymphocytes % (Manual) 7 % (20-45) L Monocytes % (Manual) 2 % (1-10) Eosinophils % (Manual) 0 % (0-3) Basophils % (Manual) 0 % (0-2) Band Neutrophils 0 % (0-8) Platelet Estimate Adequate Platelet Morphology Normal Red Blood Cell Morphology Normal Phosphorus Level 3.8 MG/DL (2.5-4.9) Microbiology Date/Time Source Procedure Growth Status 12/22/17 22:55 Urine,Clean Catch Urine Culture - Preliminary Resulted Height (Feet): 5 Height (Inches): 4.00 Weight (Pounds): 163 Medications Current Medications Medications (Trade) Dose Ordered Sig/Sarmad Route PRN Reason Start Time Stop Time Status Last Admin Dose Admin Acetaminophen (Tylenol) 650 mg Q4H PRN ORAL Fever 12/22/17 23:15 01/21/18 23:14 Albuterol/ Ipratropium (Albuterol/ Ipratropium) 3 ml EVERY 4 HOURS PRN HHN Shortness of Breath 12/22/17 23:15 12/27/17 23:14 Alprazolam (Xanax) 1 mg TID ORAL 12/23/17 09:00 12/30/17 08:59 12/23/17 10:13 Aspirin (ASA) 81 mg DAILY ORAL 12/23/17 09:00 01/22/18 08:59 12/23/17 10:11 Atorvastatin Calcium (Lipitor) 80 mg BEDTIME ORAL 12/23/17 21:00 01/22/18 20:59 Cyclobenzaprine HCl (Flexeril) 10 mg BID ORAL 12/23/17 09:00 01/22/18 08:59 12/23/17 10:13 Dextrose (Dextrose 50%) STAT PRN IV Hypoglycemia 12/22/17 23:15 01/21/18 23:14 Digoxin (Lanoxin) 0.25 mg DAILY ORAL 12/23/17 09:00 01/22/18 08:59 12/23/17 10:11 Escitalopram Oxalate (Lexapro) 10 mg DAILY ORAL 12/23/17 09:00 01/22/18 08:59 12/23/17 10:13 Gabapentin (Neurontin) 300 mg BID ORAL 12/23/17 09:00 01/22/18 08:59 12/23/17 10:11 Heparin Sodium (Porcine) (Heparin 5000 units/ml) 5,000 units EVERY 12 HOURS SUBQ 12/23/17 09:00 01/22/18 08:59 12/23/17 10:14 Metoprolol Tartrate (Lopressor) 25 mg EVERY 12 HOURS ORAL 12/23/17 09:00 01/22/18 08:59 Ondansetron HCl (Zofran) 4 mg Q6H PRN IVP Nausea & Vomiting 12/22/17 23:15 01/21/18 23:14 Ondansetron HCl (Zofran) 4 mg Q6H PRN IVP Nausea & Vomiting 12/22/17 23:15 8/4/18 23:14 Polyethylene Glycol (Miralax) 17 gm DAILYPRN PRN ORAL Constipation 12/22/17 23:15 01/21/18 23:14 Temazepam (Restoril) 15 mg HSPRN PRN ORAL Insomnia 12/22/17 23:15 12/29/17 23:14 Tizanidine HCl (Zanaflex) 4 mg DAILY PRN ORAL For Pain 12/22/17 23:15 01/21/18 23:14 12/23/17 03:44 Assessment/Plan Problem List: (1) Respiratory failure with hypoxia ICD Codes: J96.91 - Respiratory failure, unspecified with hypoxia SNOMED: [id number] Qualifiers: Qualified Codes: J96.21 - Acute and chronic respiratory failure with hypoxia (2) Acute exacerbation of CHF (congestive heart failure) ICD Codes: I50.9 - Heart failure, unspecified SNOMED: 61090585 Qualifiers: Qualified Codes: I50.9 - Heart failure, unspecified (3) Pacemaker ICD Codes: Z95.0 - Presence of cardiac pacemaker SNOMED: 455767494, [id number] (4) Rapid atrial fibrillation ICD Codes: I48.91 - Unspecified atrial fibrillation SNOMED: 159869714 Assessment/Plan echo serial ekg lasix check weight and daily intake and output daily urine culture Cardio to see pt/ot Seven Gomez MD Dec 23, 2017 11:43
[2017-12-23] MEDS ORDERED: cefTRIAXone 1 GM in D5W 55 ML IVPB SCH (13:00)
--- NOTE | 2017-12-23 14:05 | Cardiology Report ---
APPROVED REPORT EXAM: Two-dimensional and M-mode echocardiogram with Doppler and color Doppler. INDICATION Left ventricular function M-Mode DIMENSIONS IVSd0.8 (0.7-1.1cm)Left Atrium (MM)4.0 (1.6-4.0cm) LVDd3.8 (3.5-5.6cm)Aortic Root2.8 (2.0-3.7cm) PWd0.8 (0.7-1.1cm)Aortic Cusp Exc.1.7 (1.5-2.0cm) LVDs2.5 (2.5-4.0cm) PWs1.0 cm Technically difficult study due to poor acoustical windows. Normal left ventricular chamber size, systolic function and wall motion. Left ventricular ejection fraction estimated to be 60-65 %. No evidence of left ventricular hypertrophy. Large posterior pleural effusion. Mild bi-atrial enlargement by 2D. Focal aortic valve sclerosis with adequate cusp excursion. Thickened mitral valve leaflets with normal excursion. Mild mitral annulus and aortic root calcification. Pulmonic valve is well visualized. Normal tricuspid valve structure. IVC dilated at 2.3 cm non-collapsible with respiration indicate increased RA pressure. Probable pacemaker wire present in the right side chambers. A color flow and spectral Doppler study was performed and revealed: No aortic regurgitation. No mitral regurgitation. Mitral inflow velocities indicates possible pseudo normalization pattern implying significant left ventricular diastolic dysfunction. No tricuspid regurgitation. Pulmonic regurgitation present.
--- NOTE | 2017-12-23 14:15 | Diagnostic Imaging Report ---
APPROVED REPORT CPT Code: 40610 Present Symptoms Shortness of breath BILATERAL: Imaging reveals a patent deep venous system bilaterally. There is no evidence of thrombus within the femoral, popliteal or tibial segments. The greater saphenous veins are also within normal limits. Doppler indicates normal spontaneous flow within these segments.
--- NOTE | 2017-12-23 18:48 | Consultation ---
History of Present Illness General Date patient seen: Dec 23, 2017 Time patient seen: 18:22 Chief Complaint: Dyspnea/Respdistress Present Illness HPI 77-year-old female with a hx of COPD, HTN CAD, AFIB on anticoagulation brought in by paramedics with chief complaint of shortness of breath. Echo with diastolic dysfunction and elevated filling pressures and possible large effusion , CXR shows osteopenia, pacemaker and possible effusion. She was placed on BIPAP. Her symptoms have been for two weeks and worsening. No chest pain. No fevers, no sick contacts, no travel history, no smoking. Allergies: Coded Allergies: MORPHINE (Verified Allergy, Severe, Hives, 10/12/12) HIVES Medication History Scheduled Alprazolam* (Xanax*), 1 MG ORAL TID, (Reported) Apixaban (Eliquis), 5 MG PO BID Aspirin* (Aspirin*), 81 MG ORAL DAILY Atorvastatin (Lipitor), 80 MG ORAL BEDTIME Cyclobenzaprine Hcl* (Flexeril*), 10 MG ORAL BID, (Reported) Digoxin* (Digoxin*), 0.25 MG ORAL DAILY, (Reported) Docusate Sodium* (Docusate Sodium*), 100 MG ORAL DAILY, (Reported) Escitalopram Oxalate* (Lexapro*), 10 MG ORAL DAILY, (Reported) Gabapentin (Neurontin), 300 MG ORAL BID Lidocaine (Lidoderm), 1 PATCH TDERMAL DAILY Magnesium Hydroxide* (Milk Of Magnesia*), 30 ML ORAL DAILY, (Reported) Metoprolol Tartrate* (Metoprolol Tartrate*), 25 MG ORAL EVERY 12 HOURS Multivitamin With Minerals (Multivitamins With Minerals*), 1 TAB ORAL DAILY, ( Reported) Zolpidem Tartrate* (Ambien*), 5 MG ORAL BEDTIME, (Reported) Scheduled PRN Acetaminophen* (Acetaminophen 325MG Tablet*), 650 MG ORAL Q4H PRN Bisacodyl* (Dulcolax*), 10 MG RC DAILY PRN for Constipation, (Reported) Diphenhydramine HCl (Diphenhydramine HCl), 25 MG IVP Q6H PRN Hydrocodone Bit/Acetaminophen 5-325* ([place] 5-325*), 1 TAB ORAL Q4H PRN Tizanidine Hcl (Zanaflex*), 4 MG ORAL for For Pain, (Reported) Patient History Healthcare decision maker Resuscitation status Full Code Advanced Directive on File Review of Systems Constitutional: Reports: no symptoms Eye: Reports: no symptoms ENT: Reports: no symptoms Respiratory: Reports: shortness of breath, stridor, wheezing, MARIN Cardiovascular: Reports: no symptoms Gastrointestinal: Reports: no symptoms Genitourinary: Reports: no symptoms Musculoskeletal: Reports: no symptoms Skin: Reports: no symptoms Psychiatric: Reports: no symptoms Neurological: Reports: no symptoms Endocrine: Reports: no symptoms Hematologic/Lymphatic: Reports: no symptoms Physical Exam General Appearance: no apparent distress Lines, tubes and drains: peripheral HEENT: normocephalic Neck: non-tender Respiratory/Chest: accessory muscle use, rhonchi - bilaterally Cardiovascular/Chest: normal peripheral pulses, irregularly irregular, pacemaker/AICD Abdomen: normal bowel sounds Extremities: normal range of motion 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 Last 24 Hour Vital Signs Date Time Temp Pulse Resp B/P (MAP) Pulse Ox O2 Delivery O2 Flow Rate FiO2 12/23/17 18:21 81 22 96 Facial 60 12/23/17 17:49 97.9 12/23/17 16:58 60 12/23/17 16:15 97.9 95 19 115/63 (80) 98 97.9 12/23/17 16:00 107 12/23/17 16:00 Nasal Cannula 3.0 12/23/17 14:58 81 23 94 Facial 60 12/23/17 13:32 95 25 95 Facial 50 12/23/17 12:00 97.7 90 20 108/74 (85) 95 97.7 12/23/17 12:00 3.0 12/23/17 12:00 Nasal Cannula 3.0 12/23/17 11:24 104 12/23/17 11:12 98.4 12/23/17 10:14 90 94/72 12/23/17 10:13 98.4 12/23/17 10:11 90 12/23/17 08:00 Bi-pap 40.0 12/23/17 08:00 97.5 90 23 94/72 (79) 99 97.5 12/23/17 07:44 102 12/23/17 07:09 80 18 98 Facial 45 12/23/17 05:22 45 12/23/17 05:17 94 18 98 Facial 45 12/23/17 04:00 98.4 78 30 161/102 98 Bi-pap 45 98.4 12/23/17 03:57 99 12/23/17 03:12 97 20 97 Facial 45 12/23/17 01:27 45 12/23/17 00:41 98 12/23/17 00:40 98 19 97 Facial 45 12/23/17 00:35 96.8 93 16 97/61 90 Bi-pap 45 96.8 12/23/17 00:00 99 23 100/49 97 Bi-pap 45 12/22/17 23:10 101 23 98 Bi-pap 45 12/22/17 23:06 101 23 101/71 98 Bi-pap 45 12/22/17 22:59 92 21 96 Bi-pap 45 12/22/17 22:31 104 20 96 Facial 45 12/22/17 22:06 125 115/68 12/22/17 22:03 125 23 115/68 96 Bi-pap 45 12/22/17 21:55 143 16 95 Facial 45 12/22/17 21:54 143 16 Bi-pap 45 12/22/17 21:50 132 18 Non-Rebreather 15.0 12/22/17 21:37 97.5 132 18 112/68 98 Non-Rebreather 15.0 97.5 Intake and Output 12/22/17 12/23/17 19:00 07:00 Intake Total 0 ml Output Total 900 ml Balance -900 ml Intake Oral 0 ml Output Urine Total 900 ml Laboratory Tests Test 12/22/17 21:52 12/22/17 21:59 12/22/17 22:55 12/23/17 06:25 White Blood Count 16.5 K/UL (4.8-10.8) H 15.9 K/UL (4.8-10.8) H Red Blood Count 5.56 M/UL (4.20-5.40) H 5.55 M/UL (4.20-5.40) H Hemoglobin 13.7 G/DL (12.0-16.0) 14.0 G/DL (12.0-16.0) Hematocrit 45.2 % (37.0-47.0) 45.0 % (37.0-47.0) Mean Corpuscular Volume 81 FL (80-99) 81 FL (80-99) Mean Corpuscular Hemoglobin 24.6 PG (27.0-31.0) L 25.3 PG (27.0-31.0) L Mean Corpuscular Hemoglobin Concent 30.3 G/DL (32.0-36.0) L 31.1 G/DL (32.0-36.0) L Red Cell Distribution Width 15.2 % (11.6-14.8) H 15.0 % (11.6-14.8) H Platelet Count 198 K/UL (150-450) 183 K/UL (150-450) Mean Platelet Volume 7.5 FL (6.5-10.1) 7.7 FL (6.5-10.1) Neutrophils (%) (Auto) 84.7 % (45.0-75.0) H % (45.0-75.0) Lymphocytes (%) (Auto) 6.2 % (20.0-45.0) L % (20.0-45.0) Monocytes (%) (Auto) 7.0 % (1.0-10.0) % (1.0-10.0) Eosinophils (%) (Auto) 1.4 % (0.0-3.0) % (0.0-3.0) Basophils (%) (Auto) 0.9 % (0.0-2.0) % (0.0-2.0) Sodium Level 139 MMOL/L (136-145) 138 MMOL/L (136-145) Potassium Level 4.8 MMOL/L (3.5-5.1) 4.2 MMOL/L (3.5-5.1) Chloride Level 104 MMOL/L (98-107) 101 MMOL/L (98-107) Carbon Dioxide Level 32 MMOL/L (21-32) 29 MMOL/L (21-32) Anion Gap 3 mmol/L (5-15) L 8 mmol/L (5-15) Blood Urea Nitrogen 17 mg/dL (7-18) 19 mg/dL (7-18) H Creatinine 0.9 MG/DL (0.55-1.30) 1.0 MG/DL (0.55-1.30) Estimat Glomerular Filtration Rate mL/min (>60) mL/min (>60) Glucose Level 138 MG/DL (74-106) H 213 MG/DL (74-106) H Calcium Level 9.1 MG/DL (8.5-10.1) 9.2 MG/DL (8.5-10.1) Total Bilirubin 0.3 MG/DL (0.2-1.0) Aspartate Amino Transf (AST/SGOT) 16 U/L (15-37) Alanine Aminotransferase (ALT/SGPT) 25 U/L (12-78) Alkaline Phosphatase 62 U/L (46-116) Total Creatine Kinase 7 U/L (26-308) L Creatine Kinase MB 0.5 NG/ML (0.0-3.6) Creatine Kinase MB Relative Index 7.1 Troponin I 0.002 ng/mL (0.000-0.056) Pro-B-Type Natriuretic Peptide 8134 pg/mL (0-125) H Total Protein 7.0 G/DL (6.4-8.2) Albumin 3.2 G/DL (3.4-5.0) L 2.9 G/DL (3.4-5.0) L Globulin 3.8 g/dL Albumin/Globulin Ratio 0.8 (1.0-2.7) L Digoxin Level < 0.2 NG/ML (0.9-2.0) L Arterial Blood pH 7.166 (7.350-7.450) Arterial Blood Partial Pressure CO2 86.6 mmHg (35.0-45.0) *H Arterial Blood Partial Pressure O2 84.4 mmHg (75.0-100.0) Arterial Blood HCO3 30.6 mmol/L (22.0-26.0) H Arterial Blood Oxygen Saturation 94.4 % (92.0-98.0) Arterial Blood Base Excess -0.6 Lazaro Test Positive Prothrombin Time 10.6 SEC (9.30-11.50) Prothromb Time International Ratio 1.0 (0.9-1.1) Activated Partial Thromboplast Time 31 SEC (23-33) Urine Color Pale yellow Urine Appearance Cloudy Urine pH 7 (4.5-8.0) Urine Specific [place] 1.010 (1.005-1.035) Urine Protein Negative (NEGATIVE) Urine Glucose (UA) Negative (NEGATIVE) Urine Ketones Negative (NEGATIVE) Urine Occult Blood 3+ (NEGATIVE) H Urine Nitrite Positive (NEGATIVE) H Urine Bilirubin Negative (NEGATIVE) Urine Urobilinogen Normal MG/DL (0.0-1.0) Urine Leukocyte Esterase 3+ (NEGATIVE) H Urine RBC 10-15 /HPF (0 - 2) H Urine WBC Tntc /HPF (0 - 2) H Urine Squamous Epithelial Cells Occasional /LPF Urine Bacteria Many /HPF (NONE) H Differential Total Cells Counted 100 Neutrophils % (Manual) 91 % (45-75) H Lymphocytes % (Manual) 7 % (20-45) L Monocytes % (Manual) 2 % (1-10) Eosinophils % (Manual) 0 % (0-3) Basophils % (Manual) 0 % (0-2) Band Neutrophils 0 % (0-8) Platelet Estimate Adequate Platelet Morphology Normal Red Blood Cell Morphology Normal Phosphorus Level 3.8 MG/DL (2.5-4.9) Microbiology Date/Time Source Procedure Growth Status 12/22/17 22:55 Urine,Clean Catch Urine Culture - Preliminary Resulted Height (Feet): 5 Height (Inches): 4.00 Weight (Pounds): 163 Medications Current Medications Medications (Trade) Dose Ordered Sig/[place]arm[place] Route PRN Reason Start Time Stop Time Status Last Admin Dose Admin Acetaminophen (Tylenol) 650 mg Q4H PRN ORAL Fever 12/22/17 23:15 01/21/18 23:14 Albuterol/ Ipratropium (Albuterol/ Ipratropium) 3 ml EVERY 4 HOURS PRN HHN Shortness of Breath 12/22/17 23:15 12/27/17 23:14 Alprazolam (Xanax) 1 mg TID ORAL 12/23/17 09:00 12/30/17 08:59 12/23/17 10:13 Aspirin (ASA) 81 mg DAILY ORAL 12/23/17 09:00 01/22/18 08:59 12/23/17 10:11 Atorvastatin Calcium (Lipitor) 80 mg BEDTIME ORAL 12/23/17 21:00 01/22/18 20:59 Ceftriaxone Sodium 1 gm/ Dextrose 55 ml @ 110 mls/hr DAILY IVPB 12/23/17 13:00 12/30/17 12:59 12/23/17 14:20 Cyclobenzaprine HCl (Flexeril) 10 mg BID ORAL 12/23/17 09:00 01/22/18 08:59 12/23/17 17:49 Dextrose (Dextrose 50%) STAT PRN IV Hypoglycemia 12/22/17 23:15 01/21/18 23:14 Digoxin (Lanoxin) 0.25 mg DAILY ORAL 12/23/17 09:00 01/22/18 08:59 12/23/17 10:11 Escitalopram Oxalate (Lexapro) 10 mg DAILY ORAL 12/23/17 09:00 01/22/18 08:59 12/23/17 10:13 Gabapentin (Neurontin) 300 mg BID ORAL 12/23/17 09:00 01/22/18 08:59 12/23/17 17:50 Heparin Sodium (Porcine) (Heparin 5000 units/ml) 5,000 units EVERY 12 HOURS SUBQ 12/23/17 09:00 01/22/18 08:59 12/23/17 10:14 Metoprolol Tartrate (Lopressor) 25 mg EVERY 12 HOURS ORAL 12/23/17 09:00 01/22/18 08:59 Ondansetron HCl (Zofran) 4 mg Q6H PRN IVP Nausea & Vomiting 12/22/17 23:15 01/21/18 23:14 Polyethylene Glycol (Miralax) 17 gm DAILYPRN PRN ORAL Constipation 12/22/17 23:15 01/21/18 23:14 Temazepam (Restoril) 15 mg HSPRN PRN ORAL Insomnia 12/22/17 23:15 12/29/17 23:14 Tizanidine HCl (Zanaflex) 4 mg DAILY PRN ORAL For Pain 12/22/17 23:15 01/21/18 23:14 12/23/17 03:44 Assessment/Plan Status: stable Assessment/Plan Assessment/Plan Problem List: (1) Respiratory failure with hypoxia (2) Acute exacerbation of CHF (congestive heart failure) preserved ejection fraction (3) Pacemaker (4) Rapid atrial fibrillation (5) Pleural effusion Rate control AFIB, no indication for cardioversion Continue metoprolol/digoxin Anticoagulation with xarelto daily Pacemaker interrogation BiPAP for SOB CXR reviewed Echo reviewed- HFpEF with elevated filling pressures and diastolic dysfunction Continue BiPAP prn Thoracentesis evaluation for effusion seen on echocardiogram, not well visualized on Chest x ray Continue lipitor Duonebs and pulmonary toilet Steroid boost for COPD Troponin negative - no evidence of ACS Continue lasix for elevated filling pressures and high right atrial pressures, monitor renal function and daily weights Salt restriction Tim Henriquez M.D. Dec 23, 2017 18:48
--- NOTE | 2017-12-23 20:18 | Consultation ---
History of Present Illness General Date patient seen: Dec 23, 2017 Chief Complaint: Dyspnea/Respdistress Present Illness HPI 77 y/o F with hx of HTN, CAD, CHF, AFib on anticoagulation, s/p PPM 08/2016, Dm2 COPD presents to ED on 12/22 with worsening SOB of 2 weeks onset. Was hypoxic and in respiratory distress per EMS w/ sats mid 80s. In ED placed on Bipap Echo showed diastolic dysfunction and possible large effusion. Denies CP, fevers/chills, sick contacts, recent travel Allergies: Coded Allergies: MORPHINE (Verified Allergy, Severe, Hives, 10/12/12) HIVES Medication History Scheduled Alprazolam* (Xanax*), 1 MG ORAL TID, (Reported) Apixaban (Eliquis), 5 MG PO BID Aspirin* (Aspirin*), 81 MG ORAL DAILY Atorvastatin (Lipitor), 80 MG ORAL BEDTIME Cyclobenzaprine Hcl* (Flexeril*), 10 MG ORAL BID, (Reported) Digoxin* (Digoxin*), 0.25 MG ORAL DAILY, (Reported) Docusate Sodium* (Docusate Sodium*), 100 MG ORAL DAILY, (Reported) Escitalopram Oxalate* (Lexapro*), 10 MG ORAL DAILY, (Reported) Gabapentin (Neurontin), 300 MG ORAL BID Lidocaine (Lidoderm), 1 PATCH TDERMAL DAILY Magnesium Hydroxide* (Milk Of Magnesia*), 30 ML ORAL DAILY, (Reported) Metoprolol Tartrate* (Metoprolol Tartrate*), 25 MG ORAL EVERY 12 HOURS Multivitamin With Minerals (Multivitamins With Minerals*), 1 TAB ORAL DAILY, ( Reported) Zolpidem Tartrate* (Ambien*), 5 MG ORAL BEDTIME, (Reported) Scheduled PRN Acetaminophen* (Acetaminophen 325MG Tablet*), 650 MG ORAL Q4H PRN Bisacodyl* (Dulcolax*), 10 MG RC DAILY PRN for Constipation, (Reported) Diphenhydramine HCl (Diphenhydramine HCl), 25 MG IVP Q6H PRN Hydrocodone Bit/Acetaminophen 5-325* ([place] 5-325*), 1 TAB ORAL Q4H PRN Tizanidine Hcl (Zanaflex*), 4 MG ORAL for For Pain, (Reported) Patient History Healthcare decision maker Resuscitation status Full Code Advanced Directive on File Patient History Narrative Pmhx: as above Shx: She lives at home in a hospital bed. No smoking Fhx: non contributory Review of Systems All Other Systems: negative except mentioned in HPI Physical Exam Physical Exam Narrative General Appearance: no apparent distress Lines, tubes and drains: peripheral HEENT: normocephalic Neck: non-tender Respiratory/Chest: accessory muscle use, rhonchi - bilaterally Cardiovascular/Chest: normal peripheral pulses, irregularly irregular, pacemaker/AICD Abdomen: normal bowel sounds Extremities: normal range of motion Neurologic: compliance review specialist II-XII grossly normal Last 24 Hour Vital Signs Date Time Temp Pulse Resp B/P (MAP) Pulse Ox O2 Delivery O2 Flow Rate FiO2 12/23/17 19:49 94 22 97 Facial 60 12/23/17 18:48 97.9 12/23/17 18:21 81 22 96 Facial 60 12/23/17 17:49 97.9 12/23/17 16:58 60 12/23/17 16:15 97.9 95 19 115/63 (80) 98 97.9 12/23/17 16:00 107 12/23/17 16:00 Nasal Cannula 3.0 12/23/17 14:58 81 23 94 Facial 60 12/23/17 13:32 95 25 95 Facial 50 12/23/17 12:00 97.7 90 20 108/74 (85) 95 97.7 12/23/17 12:00 3.0 12/23/17 12:00 Nasal Cannula 3.0 12/23/17 11:24 104 12/23/17 10:14 90 94/72 12/23/17 10:13 98.4 12/23/17 10:11 90 12/23/17 08:00 Bi-pap 40.0 12/23/17 08:00 97.5 90 23 94/72 (79) 99 97.5 12/23/17 07:44 102 12/23/17 07:09 80 18 98 Facial 45 12/23/17 05:22 45 12/23/17 05:17 94 18 98 Facial 45 12/23/17 04:00 98.4 78 30 161/102 98 Bi-pap 45 98.4 12/23/17 03:57 99 12/23/17 03:12 97 20 97 Facial 45 12/23/17 01:27 45 12/23/17 00:41 98 12/23/17 00:40 98 19 97 Facial 45 12/23/17 00:35 96.8 93 16 97/61 90 Bi-pap 45 96.8 12/23/17 00:00 99 23 100/49 97 Bi-pap 45 12/22/17 23:10 101 23 98 Bi-pap 45 12/22/17 23:06 101 23 101/71 98 Bi-pap 45 12/22/17 22:59 92 21 96 Bi-pap 45 12/22/17 22:31 104 20 96 Facial 45 12/22/17 22:06 125 115/68 12/22/17 22:03 125 23 115/68 96 Bi-pap 45 12/22/17 21:55 143 16 95 Facial 45 12/22/17 21:54 143 16 Bi-pap 45 12/22/17 21:50 132 18 Non-Rebreather 15.0 12/22/17 21:37 97.5 132 18 112/68 98 Non-Rebreather 15.0 97.5 Intake and Output 12/22/17 12/23/17 19:00 07:00 Intake Total 0 ml Output Total 900 ml Balance -900 ml Intake Oral 0 ml Output Urine Total 900 ml Laboratory Tests Test 12/22/17 21:52 12/22/17 21:59 12/22/17 22:55 12/23/17 06:25 White Blood Count 16.5 K/UL (4.8-10.8) H 15.9 K/UL (4.8-10.8) H Red Blood Count 5.56 M/UL (4.20-5.40) H 5.55 M/UL (4.20-5.40) H Hemoglobin 13.7 G/DL (12.0-16.0) 14.0 G/DL (12.0-16.0) Hematocrit 45.2 % (37.0-47.0) 45.0 % (37.0-47.0) Mean Corpuscular Volume 81 FL (80-99) 81 FL (80-99) Mean Corpuscular Hemoglobin 24.6 PG (27.0-31.0) L 25.3 PG (27.0-31.0) L Mean Corpuscular Hemoglobin Concent 30.3 G/DL (32.0-36.0) L 31.1 G/DL (32.0-36.0) L Red Cell Distribution Width 15.2 % (11.6-14.8) H 15.0 % (11.6-14.8) H Platelet Count 198 K/UL (150-450) 183 K/UL (150-450) Mean Platelet Volume 7.5 FL (6.5-10.1) 7.7 FL (6.5-10.1) Neutrophils (%) (Auto) 84.7 % (45.0-75.0) H % (45.0-75.0) Lymphocytes (%) (Auto) 6.2 % (20.0-45.0) L % (20.0-45.0) Monocytes (%) (Auto) 7.0 % (1.0-10.0) % (1.0-10.0) Eosinophils (%) (Auto) 1.4 % (0.0-3.0) % (0.0-3.0) Basophils (%) (Auto) 0.9 % (0.0-2.0) % (0.0-2.0) Sodium Level 139 MMOL/L (136-145) 138 MMOL/L (136-145) Potassium Level 4.8 MMOL/L (3.5-5.1) 4.2 MMOL/L (3.5-5.1) Chloride Level 104 MMOL/L (98-107) 101 MMOL/L (98-107) Carbon Dioxide Level 32 MMOL/L (21-32) 29 MMOL/L (21-32) Anion Gap 3 mmol/L (5-15) L 8 mmol/L (5-15) Blood Urea Nitrogen 17 mg/dL (7-18) 19 mg/dL (7-18) H Creatinine 0.9 MG/DL (0.55-1.30) 1.0 MG/DL (0.55-1.30) Estimat Glomerular Filtration Rate mL/min (>60) mL/min (>60) Glucose Level 138 MG/DL (74-106) H 213 MG/DL (74-106) H Calcium Level 9.1 MG/DL (8.5-10.1) 9.2 MG/DL (8.5-10.1) Total Bilirubin 0.3 MG/DL (0.2-1.0) Aspartate Amino Transf (AST/SGOT) 16 U/L (15-37) Alanine Aminotransferase (ALT/SGPT) 25 U/L (12-78) Alkaline Phosphatase 62 U/L (46-116) Total Creatine Kinase 7 U/L (26-308) L Creatine Kinase MB 0.5 NG/ML (0.0-3.6) Creatine Kinase MB Relative Index 7.1 Troponin I 0.002 ng/mL (0.000-0.056) Pro-B-Type Natriuretic Peptide 8134 pg/mL (0-125) H Total Protein 7.0 G/DL (6.4-8.2) Albumin 3.2 G/DL (3.4-5.0) L 2.9 G/DL (3.4-5.0) L Globulin 3.8 g/dL Albumin/Globulin Ratio 0.8 (1.0-2.7) L Digoxin Level < 0.2 NG/ML (0.9-2.0) L Arterial Blood pH 7.166 (7.350-7.450) Arterial Blood Partial Pressure CO2 86.6 mmHg (35.0-45.0) *H Arterial Blood Partial Pressure O2 84.4 mmHg (75.0-100.0) Arterial Blood HCO3 30.6 mmol/L (22.0-26.0) H Arterial Blood Oxygen Saturation 94.4 % (92.0-98.0) Arterial Blood Base Excess -0.6 Lazaro Test Positive Prothrombin Time 10.6 SEC (9.30-11.50) Prothromb Time International Ratio 1.0 (0.9-1.1) Activated Partial Thromboplast Time 31 SEC (23-33) Urine Color Pale yellow Urine Appearance Cloudy Urine pH 7 (4.5-8.0) Urine Specific [place] 1.010 (1.005-1.035) Urine Protein Negative (NEGATIVE) Urine Glucose (UA) Negative (NEGATIVE) Urine Ketones Negative (NEGATIVE) Urine Occult Blood 3+ (NEGATIVE) H Urine Nitrite Positive (NEGATIVE) H Urine Bilirubin Negative (NEGATIVE) Urine Urobilinogen Normal MG/DL (0.0-1.0) Urine Leukocyte Esterase 3+ (NEGATIVE) H Urine RBC 10-15 /HPF (0 - 2) H Urine WBC Tntc /HPF (0 - 2) H Urine Squamous Epithelial Cells Occasional /LPF Urine Bacteria Many /HPF (NONE) H Differential Total Cells Counted 100 Neutrophils % (Manual) 91 % (45-75) H Lymphocytes % (Manual) 7 % (20-45) L Monocytes % (Manual) 2 % (1-10) Eosinophils % (Manual) 0 % (0-3) Basophils % (Manual) 0 % (0-2) Band Neutrophils 0 % (0-8) Platelet Estimate Adequate Platelet Morphology Normal Red Blood Cell Morphology Normal Phosphorus Level 3.8 MG/DL (2.5-4.9) Microbiology Date/Time Source Procedure Growth Status 12/22/17 22:55 Urine,Clean Catch Urine Culture - Preliminary Resulted Height (Feet): 5 Height (Inches): 4.00 Weight (Pounds): 163 Medications Current Medications Medications (Trade) Dose Ordered Sig/Sarmad Route PRN Reason Start Time Stop Time Status Last Admin Dose Admin Acetaminophen (Tylenol) 650 mg Q4H PRN ORAL Fever 12/22/17 23:15 01/21/18 23:14 Albuterol/ Ipratropium (Albuterol/ Ipratropium) 3 ml EVERY 4 HOURS PRN HHN Shortness of Breath 12/22/17 23:15 12/27/17 23:14 Alprazolam (Xanax) 1 mg TID ORAL 12/23/17 09:00 12/30/17 08:59 12/23/17 10:13 Aspirin (ASA) 81 mg DAILY ORAL 12/23/17 09:00 01/22/18 08:59 12/23/17 10:11 Atorvastatin Calcium (Lipitor) 80 mg BEDTIME ORAL 12/23/17 21:00 01/22/18 20:59 Ceftriaxone Sodium 1 gm/ Dextrose 55 ml @ 110 mls/hr DAILY IVPB 12/23/17 13:00 12/30/17 12:59 12/23/17 14:20 Cyclobenzaprine HCl (Flexeril) 10 mg BID ORAL 12/23/17 09:00 01/22/18 08:59 12/23/17 17:49 Dextrose (Dextrose 50%) STAT PRN IV Hypoglycemia 12/22/17 23:15 01/21/18 23:14 Digoxin (Lanoxin) 0.25 mg DAILY ORAL 12/23/17 09:00 01/22/18 08:59 12/23/17 10:11 Escitalopram Oxalate (Lexapro) 10 mg DAILY ORAL 12/23/17 09:00 01/22/18 08:59 12/23/17 10:13 Gabapentin (Neurontin) 300 mg BID ORAL 12/23/17 09:00 01/22/18 08:59 12/23/17 17:50 Heparin Sodium (Porcine) (Heparin 5000 units/ml) 5,000 units EVERY 12 HOURS SUBQ 12/23/17 09:00 12/24/17 08:59 12/23/17 10:14 Metoprolol Tartrate (Lopressor) 25 mg EVERY 12 HOURS ORAL 12/23/17 09:00 01/22/18 08:59 Ondansetron HCl (Zofran) 4 mg Q6H PRN IVP Nausea & Vomiting 12/22/17 23:15 01/21/18 23:14 Polyethylene Glycol (Miralax) 17 gm DAILYPRN PRN ORAL Constipation 12/22/17 23:15 01/21/18 23:14 Rivaroxaban (Xarelto) 20 mg DAILY ORAL 12/24/17 09:00 01/23/18 08:59 Temazepam (Restoril) 15 mg HSPRN PRN ORAL Insomnia 12/22/17 23:15 12/29/17 23:14 Tizanidine HCl (Zanaflex) 4 mg DAILY PRN ORAL For Pain 12/22/17 23:15 01/21/18 23:14 12/23/17 03:44 Assessment/Plan Assessment/Plan Abx: Ceftriaxone 12/22- Assessment: Acute respiratory failure, on bipap- likely 2ry to CHF exacerbation -CXR: no acute disease Leukocytosis , improving )?2ry to UTI- r/o PNA -u/a wbc tntc, nit +, leuk +3; ucx p -afebrile HTN CAD CHF AFib on anticoagulation s/p PPM 08/2016 Dm2 COPD Plan: -Switch Ceftriaxone #2 to Cefepime pending urine culture -Bcx,sp cx -f/u cx -Monitor CBC/BMP, temperatures -CXR am -aspiration precautions Thank you for this consultation. Will continue to follow along with you. Discussed with Elysia Carlson M.D. Dec 23, 2017 20:18
[2017-12-23] MEDS: Cefepime HCl 1 GM in D5W 110 ML IVPB SCH (21:20)
[2017-12-23] MEDS: Atorvastatin 80mg tab ORAL SCH (21:24)
[2017-12-24] VITALS (7 sets, daily range): BP systolic 120–149; BP diastolic 70–95
[2017-12-24] MEDS: Cefepime HCl 1 GM in D5W 110 ML IVPB SCH ×2 (09:11→20:31)
[2017-12-24] MEDS: Aspirin Baby 81mg ORAL SCH (09:11)
[2017-12-24] MEDS: Metoprolol 25mg tab ORAL SCH (09:12)
--- NOTE | 2017-12-24 09:14 | Diagnostic Imaging Report ---
EXAM: XR Chest, 1 View CLINICAL HISTORY: DYSPNEA TECHNIQUE: Frontal view of the chest. COMPARISON: No relevant prior studies available. FINDINGS: Cardiomegaly with single lead pacer device in a left subclavian approach. No overt pulmonary edema. There is bibasilar opacification, which is more pronounced than previously. There is likely a component of volume loss, but would also question consolidation, particularly in the left lower lobe. IMPRESSION: Suspect developing left basilar consolidation. Cardiomegaly.
[2017-12-24] MEDS: ALPRAZolam 0.25mg tab ORAL SCH ×3 (09:15→17:46)
[2017-12-24] MEDS: Xarelto 10mg tab ORAL SCH (09:15)
[2017-12-24] MEDS: Cyclobenzaprine 10mg Tab ORAL SCH ×2 (09:18→17:44)
[2017-12-24] MEDS ORDERED: NS 275ml ONE (09:28)
--- NOTE | 2017-12-24 11:17 | Pulmonology Progress Note ---
Assessment/Plan Problems: (1) Respiratory failure with hypoxia (2) Acute exacerbation of CHF (congestive heart failure) (3) Pacemaker (4) Rapid atrial fibrillation Assessment/Plan improving continue diuresis check electrolytes respiratory treatment ID and cardio notes reviewed check echo titrate fio2 to sat of 92% Subjective ROS Limited/Unobtainable: No Interval Events: feeling better Allergies: Coded Allergies: MORPHINE (Verified Allergy, Severe, Hives, 10/12/12) HIVES Objective Last 24 Hour Vital Signs Date Time Temp Pulse Resp B/P (MAP) Pulse Ox O2 Delivery O2 Flow Rate FiO2 12/24/17 10:47 85 18 95 55 12/24/17 09:18 98.4 12/24/17 09:15 102 12/24/17 09:14 99 22 93 55 12/24/17 09:12 102 149/74 12/24/17 08:02 102 20 94 12/24/17 08:00 55.0 12/24/17 08:00 Venturi Mask 55.0 12/24/17 08:00 99 12/24/17 08:00 98.4 100 20 149/74 (99) 94 98.4 12/24/17 06:43 103 16 95 Full Face 60 12/24/17 05:15 67 16 95 Full Face 60 12/24/17 04:00 97.7 96 16 122/70 (87) 91 97.7 12/24/17 04:00 Bi-pap 60.0 12/24/17 04:00 60 12/24/17 03:32 108 12/24/17 02:51 104 18 92 Facial 60 12/24/17 00:48 87 16 97 Facial 60 12/24/17 00:00 60 12/24/17 00:00 97.9 104 17 145/95 (112) 97 97.9 12/24/17 00:00 Bi-pap 60.0 12/23/17 23:57 99 12/23/17 22:55 84 16 98 Facial 60 12/23/17 21:21 100 141/85 12/23/17 20:56 91 22 97 Facial 60 12/23/17 20:00 98.1 100 18 141/85 (103) 98 98.1 12/23/17 20:00 109 12/23/17 20:00 Bi-pap 60.0 7/6/18 20:00 60 12/23/17 19:49 94 22 97 Facial 60 12/23/17 18:48 97.9 12/23/17 18:21 81 22 96 Facial 60 12/23/17 17:49 97.9 12/23/17 16:58 60 12/23/17 16:15 97.9 95 19 115/63 (80) 98 97.9 12/23/17 16:00 107 12/23/17 16:00 Nasal Cannula 3.0 12/23/17 14:58 81 23 94 Facial 60 12/23/17 13:32 95 25 95 Facial 50 12/23/17 12:00 97.7 90 20 108/74 (85) 95 97.7 12/23/17 12:00 3.0 12/23/17 12:00 Nasal Cannula 3.0 12/23/17 11:24 104 Intake and Output 12/23/17 12/24/17 19:00 07:00 Intake Total 155 ml 610 ml Output Total 550 ml 600 ml Balance -395 ml 10 ml Intake Oral 100 ml 500 ml IV Total 55 ml 110 ml Output Urine Total 550 ml 600 ml General Appearance: WD/WN HEENT: normocephalic, atraumatic Respiratory/Chest: chest wall non-tender, lungs clear Cardiovascular: regular rhythm Abdomen: normal bowel sounds, no organomegaly Extremities: no cyanosis, no clubbing Skin: no rash Microbiology Date/Time Source Procedure Growth Status 12/23/17 00:22 Nasal Nares MRSA Culture - Final NO METHICILLIN RESISTANT STAPH AUREUS... Complete 12/22/17 22:55 Urine,Clean Catch Urine Culture - Final Staphylococcus Sp Coag Neg Complete Laboratory Tests 12/23/17 23:20: Troponin I 0.002 12/24/17 04:00: Arterial Blood pH 7.500H, Arterial Blood Partial Pressure CO2 47.2H, Arterial Blood Partial Pressure O2 91.6, Arterial Blood HCO3 36.0H, Arterial Blood Oxygen Saturation 97.2, Arterial Blood Base Excess 11.3, Lazaro Test Positive Current Medications Medications (Trade) Dose Ordered Sig/Sarmad Route PRN Reason Start Time Stop Time Status Last Admin Dose Admin Acetaminophen (Tylenol) 650 mg Q4H PRN ORAL Fever 12/22/17 23:15 01/21/18 23:14 Albuterol/ Ipratropium (Albuterol/ Ipratropium) 3 ml EVERY 4 HOURS PRN HHN Shortness of Breath 12/22/17 23:15 12/27/17 23:14 Alprazolam (Xanax) 1 mg TID ORAL 12/23/17 09:00 12/30/17 08:59 12/24/17 09:15 Aspirin (ASA) 81 mg DAILY ORAL 12/23/17 09:00 01/22/18 08:59 12/24/17 09:11 Atorvastatin Calcium (Lipitor) 80 mg BEDTIME ORAL 12/23/17 21:00 01/22/18 20:59 12/23/17 21:24 Cefepime HCl 1 gm/ Dextrose 110 ml @ 220 mls/hr EVERY 12 HOURS IVPB 12/23/17 21:00 12/30/17 20:59 12/24/17 09:11 Cyclobenzaprine HCl (Flexeril) 10 mg BID ORAL 12/23/17 09:00 01/22/18 08:59 12/24/17 09:18 Dextrose (Dextrose 50%) STAT PRN IV Hypoglycemia 12/22/17 23:15 01/21/18 23:14 Digoxin (Lanoxin) 0.25 mg DAILY ORAL 12/23/17 09:00 01/22/18 08:59 12/24/17 09:15 Escitalopram Oxalate (Lexapro) 10 mg DAILY ORAL 12/23/17 09:00 01/22/18 08:59 12/24/17 09:24 Gabapentin (Neurontin) 300 mg BID ORAL 12/23/17 09:00 01/22/18 08:59 12/24/17 09:18 Metoprolol Tartrate (Lopressor) 25 mg EVERY 12 HOURS ORAL 12/23/17 09:00 01/22/18 08:59 12/24/17 09:12 Ondansetron HCl (Zofran) 4 mg Q6H PRN IVP Nausea & Vomiting 12/22/17 23:15 01/21/18 23:14 Polyethylene Glycol (Miralax) 17 gm DAILYPRN PRN ORAL Constipation 12/22/17 23:15 01/21/18 23:14 Rivaroxaban (Xarelto) 20 mg DAILY ORAL 12/24/17 09:00 01/23/18 08:59 12/24/17 09:15 Temazepam (Restoril) 15 mg HSPRN PRN ORAL Insomnia 12/22/17 23:15 12/29/17 23:14 12/24/17 02:23 Tizanidine HCl (Zanaflex) 4 mg DAILY PRN ORAL For Pain 12/22/17 23:15 01/21/18 23:14 12/23/17 03:44 Seven Gomez MD Dec 24, 2017 11:17
--- NOTE | 2017-12-24 14:12 | Cardiology Progress Note ---
Assessment/Plan Status: stable Assessment/Plan Assessment/Plan Problem List: (1) Respiratory failure with hypoxia (2) Acute exacerbation of CHF (congestive heart failure) preserved ejection fraction (3) Pacemaker (4) Rapid atrial fibrillation (5) Pleural effusion Rate control AFIB, no indication for cardioversion - increased metoprolol today with supplemental IV Continue metoprolol/digoxin Anticoagulation with xarelto daily Pacemaker interrogation BiPAP for SOB CXR reviewed Echo reviewed- HFpEF with elevated filling pressures and diastolic dysfunction Continue BiPAP prn Thoracentesis evaluation for effusion seen on echocardiogram, not well visualized on Chest x ray Continue lipitor Duonebs and pulmonary toilet Steroid boost for COPD Troponin negative - no evidence of ACS Continue lasix for elevated filling pressures and high right atrial pressures, monitor renal function and daily weights Salt restriction Subjective Cardiovascular: Reports: no symptoms Respiratory: Reports: no symptoms Gastrointestinal/Abdominal: Reports: no symptoms Genitourinary: Reports: no symptoms Subjective Heart rate in 110 on metoprolol and digoxin, no acute events, venturi mask on patient, no distress comfortable Objective Last 24 Hour Vital Signs Date Time Temp Pulse Resp B/P (MAP) Pulse Ox O2 Delivery O2 Flow Rate FiO2 12/24/17 12:00 55.0 12/24/17 12:00 97.7 110 20 126/75 (92) 95 97.7 12/24/17 12:00 Venturi Mask 55.0 12/24/17 10:47 85 18 95 55 12/24/17 10:17 98.4 12/24/17 09:18 98.4 12/24/17 09:15 102 12/24/17 09:14 99 22 93 55 12/24/17 09:12 102 149/74 12/24/17 08:02 102 20 94 12/24/17 08:00 55.0 12/24/17 08:00 Venturi Mask 55.0 12/24/17 08:00 99 12/24/17 08:00 98.4 100 20 149/74 (99) 94 98.4 12/24/17 06:43 103 16 95 Full Face 60 12/24/17 05:15 67 16 95 Full Face 60 12/24/17 04:00 97.7 96 16 122/70 (87) 91 97.7 12/24/17 04:00 Bi-pap 60.0 12/24/17 04:00 60 12/24/17 03:32 108 12/24/17 02:51 104 18 92 Facial 60 12/24/17 00:48 87 16 97 Facial 60 12/24/17 00:00 60 12/24/17 00:00 97.9 104 17 145/95 (112) 97 97.9 12/24/17 00:00 Bi-pap 60.0 12/23/17 23:57 99 12/23/17 22:55 84 16 98 Facial 60 12/23/17 21:21 100 141/85 12/23/17 20:56 91 22 97 Facial 60 12/23/17 20:00 98.1 100 18 141/85 (103) 98 98.1 12/23/17 20:00 109 12/23/17 20:00 Bi-pap 60.0 12/23/17 20:00 60 12/23/17 19:49 94 22 97 Facial 60 12/23/17 18:21 81 22 96 Facial 60 12/23/17 17:49 97.9 12/23/17 16:58 60 12/23/17 16:15 97.9 95 19 115/63 (80) 98 97.9 12/23/17 16:00 107 12/23/17 16:00 Nasal Cannula 3.0 12/23/17 14:58 81 23 94 Facial 60 General Appearance: no apparent distress EENT: PERRL/EOMI Neck: non-tender Rhythm: Afib Cardiovascular: normal peripheral pulses Respiratory/Chest: chest wall non-tender Abdomen: soft, no organomegaly, no mass Extremities: normal range of motion 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-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 grossly normal Intake and Output 12/23/17 12/24/17 19:00 07:00 Intake Total 155 ml 610 ml Output Total 550 ml 600 ml Balance -395 ml 10 ml Intake Oral 100 ml 500 ml IV Total 55 ml 110 ml Output Urine Total 550 ml 600 ml Laboratory Tests Test 12/23/17 23:20 12/24/17 04:00 Troponin I 0.002 ng/mL (0.000-0.056) Arterial Blood pH 7.500 (7.350-7.450) Arterial Blood Partial Pressure CO2 47.2 mmHg (35.0-45.0) H Arterial Blood Partial Pressure O2 91.6 mmHg (75.0-100.0) Arterial Blood HCO3 36.0 mmol/L (22.0-26.0) H Arterial Blood Oxygen Saturation 97.2 % (92.0-98.0) Arterial Blood Base Excess 11.3 Lazaro Test Positive Microbiology Date/Time Source Procedure Growth Status 12/23/17 00:22 Nasal Nares MRSA Culture - Final NO METHICILLIN RESISTANT STAPH AUREUS... Complete 12/22/17 22:55 Urine,Clean Catch Urine Culture - Final Staphylococcus Sp Coag Neg Complete Tim Henriquez M.D. Dec 24, 2017 14:12
[2017-12-24] MEDS ORDERED: Metoprolol Tartrate 10 MG in D5W 55 ML IVPB ONE (15:00)
[2017-12-24] MEDS: Metoprolol Tartrate 50mg tab ORAL SCH (20:32)
[2017-12-24] MEDS: Atorvastatin 80mg tab ORAL SCH (20:32)
--- NOTE | 2017-12-24 23:30 | Consultation ---
History of Present Illness General Chief Complaint: Dyspnea/Respdistress Present Illness Allergies: Coded Allergies: MORPHINE (Verified Allergy, Severe, Hives, 10/12/12) HIVES Medication History Scheduled Alprazolam* (Xanax*), 1 MG ORAL TID, (Reported) Apixaban (Eliquis), 5 MG PO BID Aspirin* (Aspirin*), 81 MG ORAL DAILY Atorvastatin (Lipitor), 80 MG ORAL BEDTIME Cyclobenzaprine Hcl* (Flexeril*), 10 MG ORAL BID, (Reported) Digoxin* (Digoxin*), 0.25 MG ORAL DAILY, (Reported) Docusate Sodium* (Docusate Sodium*), 100 MG ORAL DAILY, (Reported) Escitalopram Oxalate* (Lexapro*), 10 MG ORAL DAILY, (Reported) Gabapentin (Neurontin), 300 MG ORAL BID Lidocaine (Lidoderm), 1 PATCH TDERMAL DAILY Magnesium Hydroxide* (Milk Of Magnesia*), 30 ML ORAL DAILY, (Reported) Metoprolol Tartrate* (Metoprolol Tartrate*), 25 MG ORAL EVERY 12 HOURS Multivitamin With Minerals (Multivitamins With Minerals*), 1 TAB ORAL DAILY, ( Reported) Zolpidem Tartrate* (Ambien*), 5 MG ORAL BEDTIME, (Reported) Scheduled PRN Acetaminophen* (Acetaminophen 325MG Tablet*), 650 MG ORAL Q4H PRN Bisacodyl* (Dulcolax*), 10 MG RC DAILY PRN for Constipation, (Reported) Diphenhydramine HCl (Diphenhydramine HCl), 25 MG IVP Q6H PRN Hydrocodone Bit/Acetaminophen 5-325* (Holmes 5-325*), 1 TAB ORAL Q4H PRN Tizanidine Hcl (Zanaflex*), 4 MG ORAL for For Pain, (Reported) Patient History Healthcare decision maker Resuscitation status Full Code Advanced Directive on File Physical Exam Last 24 Hour Vital Signs Date Time Temp Pulse Resp B/P (MAP) Pulse Ox O2 Delivery O2 Flow Rate FiO2 12/24/17 21:51 35 12/24/17 20:32 102 136/81 12/24/17 20:00 91 12/24/17 20:00 97.6 90 20 137/85 (102) 96 97.6 12/24/17 20:00 Venturi Mask 55.0 12/24/17 20:00 55 12/24/17 18:55 102 18 Room Air 21 12/24/17 18:43 97.7 12/24/17 17:44 97.7 12/24/17 16:00 109 12/24/17 16:00 Venturi Mask 55.0 12/24/17 16:00 98.4 108 19 136/81 (99) 98 98.4 12/24/17 16:00 55.0 12/24/17 15:26 110 120/75 12/24/17 15:25 110 120/75 (90) 12/24/17 12:00 55.0 12/24/17 12:00 97.7 110 20 126/75 (92) 95 97.7 12/24/17 12:00 Venturi Mask 55.0 12/24/17 11:49 103 12/24/17 10:47 85 18 95 55 12/24/17 09:18 98.4 12/24/17 09:15 102 12/24/17 09:14 99 22 93 55 12/24/17 09:12 102 149/74 12/24/17 08:02 102 20 94 12/24/17 08:00 55.0 12/24/17 08:00 Venturi Mask 55.0 12/24/17 08:00 99 12/24/17 08:00 98.4 100 20 149/74 (99) 94 98.4 12/24/17 06:43 103 16 95 Full Face 60 12/24/17 05:15 67 16 95 Full Face 60 12/24/17 04:00 97.7 96 16 122/70 (87) 91 97.7 12/24/17 04:00 Bi-pap 60.0 12/24/17 04:00 60 12/24/17 03:32 108 12/24/17 02:51 104 18 92 Facial 60 12/24/17 00:48 87 16 97 Facial 60 12/24/17 00:00 60 12/24/17 00:00 97.9 104 17 145/95 (112) 97 97.9 12/24/17 00:00 Bi-pap 60.0 12/23/17 23:57 99 Intake and Output 12/23/17 12/24/17 19:00 07:00 Intake Total 155 ml 610 ml Output Total 550 ml 600 ml Balance -395 ml 10 ml Intake Oral 100 ml 500 ml IV Total 55 ml 110 ml Output Urine Total 550 ml 600 ml Laboratory Tests Test 12/24/17 04:00 12/24/17 23:15 Arterial Blood pH 7.500 (7.350-7.450) Arterial Blood Partial Pressure CO2 47.2 mmHg (35.0-45.0) H Arterial Blood Partial Pressure O2 91.6 mmHg (75.0-100.0) Arterial Blood HCO3 36.0 mmol/L (22.0-26.0) H Arterial Blood Oxygen Saturation 97.2 % (92.0-98.0) Arterial Blood Base Excess 11.3 Lazaro Test Positive Troponin I Pending Height (Feet): 5 Height (Inches): 4.00 Weight (Pounds): 163 Medications Current Medications Medications (Trade) Dose Ordered Sig/Sarmad Route PRN Reason Start Time Stop Time Status Last Admin Dose Admin Acetaminophen (Tylenol) 650 mg Q4H PRN ORAL Fever 12/22/17 23:15 01/21/18 23:14 Albuterol/ Ipratropium (Albuterol/ Ipratropium) 3 ml EVERY 4 HOURS PRN HHN Shortness of Breath 12/22/17 23:15 12/27/17 23:14 Alprazolam (Xanax) 1 mg TID ORAL 12/23/17 09:00 12/30/17 08:59 12/24/17 17:46 Aspirin (ASA) 81 mg DAILY ORAL 12/23/17 09:00 01/22/18 08:59 12/24/17 09:11 Atorvastatin Calcium (Lipitor) 80 mg BEDTIME ORAL 12/23/17 21:00 01/22/18 20:59 12/24/17 20:32 Cefepime HCl 1 gm/ Dextrose 110 ml @ 220 mls/hr EVERY 12 HOURS IVPB 12/23/17 21:00 12/30/17 20:59 12/24/17 20:31 Cyclobenzaprine HCl (Flexeril) 10 mg BID ORAL 12/23/17 09:00 01/22/18 08:59 12/24/17 17:44 Dextrose (Dextrose 50%) STAT PRN IV Hypoglycemia 12/22/17 23:15 01/21/18 23:14 Digoxin (Lanoxin) 0.25 mg DAILY ORAL 12/23/17 09:00 01/22/18 08:59 12/24/17 09:15 Escitalopram Oxalate (Lexapro) 10 mg DAILY ORAL 12/23/17 09:00 01/22/18 08:59 12/24/17 09:24 Gabapentin (Neurontin) 300 mg BID ORAL 12/23/17 09:00 01/22/18 08:59 12/24/17 17:46 Metoprolol Tartrate (Lopressor) 50 mg Q12HR ORAL 12/24/17 21:00 01/23/18 20:59 12/24/17 20:32 Ondansetron HCl (Zofran) 4 mg Q6H PRN IVP Nausea & Vomiting 12/22/17 23:15 01/21/18 23:14 Polyethylene Glycol (Miralax) 17 gm DAILYPRN PRN ORAL Constipation 12/22/17 23:15 01/21/18 23:14 Rivaroxaban (Xarelto) 20 mg DAILY ORAL 12/24/17 09:00 01/23/18 08:59 12/24/17 09:15 Temazepam (Restoril) 15 mg HSPRN PRN ORAL Insomnia 12/22/17 23:15 12/29/17 23:14 12/24/17 02:23 Tizanidine HCl (Zanaflex) 4 mg DAILY PRN ORAL For Pain 12/22/17 23:15 01/21/18 23:14 12/23/17 03:44 Erik Taylor MD Dec 24, 2017 23:30
[2017-12-25] VITALS: BP 126/74
[2017-12-25 04:00] VITALS: BP 134/95
[2017-12-25 08:00] VITALS: BP 149/78
[2017-12-25] MEDS: Xarelto 10mg tab ORAL SCH (09:22)
[2017-12-25] MEDS: Cefepime HCl 1 GM in D5W 110 ML IVPB SCH ×2 (09:22→20:57)
[2017-12-25] MEDS: Aspirin Baby 81mg ORAL SCH (09:23)
[2017-12-25] MEDS: Metoprolol Tartrate 50mg tab ORAL SCH ×2 (09:23→20:55)
[2017-12-25] MEDS: ALPRAZolam 0.25mg tab ORAL SCH ×3 (09:23→17:56)
[2017-12-25] MEDS: Cyclobenzaprine 10mg Tab ORAL SCH ×2 (09:23→18:01)
[2017-12-25] MEDS ORDERED: NS 275ml ONE (11:11)
[2017-12-25 12:00] VITALS: BP 148/90
--- NOTE | 2017-12-25 13:49 | Cardiology Progress Note ---
Assessment/Plan Status: stable Assessment/Plan Assessment/Plan Problem List: (1) Respiratory failure with hypoxia (2) Acute exacerbation of CHF (congestive heart failure) preserved ejection fraction (3) Pacemaker (4) Rapid atrial fibrillation (5) Pleural effusion Rate control AFIB, no indication for cardioversion - heart rates 90s now, continue current Rx: metoprolol/digoxin at current doses Anticoagulation with xarelto daily Pacemaker interrogation BiPAP prn for SOB CXR reviewed Echo reviewed- HFpEF with elevated filling pressures and diastolic dysfunction Continue BiPAP prn Thoracentesis evaluation for effusion if sob persists as seen on echocardiogram , not well visualized on Chest x ray Continue lipitor Duonebs and pulmonary toilet Steroid boost for COPD Troponin negative - no evidence of ACS Continue lasix for elevated filling pressures and high right atrial pressures, monitor renal function and daily weights Salt restriction Dispo planning Subjective Cardiovascular: Reports: no symptoms Respiratory: Reports: no symptoms Gastrointestinal/Abdominal: Reports: no symptoms Genitourinary: Reports: no symptoms Subjective Heart rate in 110 on metoprolol and digoxin, no acute events, venturi mask on patient, no distress comfortable Patients HR continues to range from 86-101 in Afib rhythm. Patient however continues to be asymptomatic. Patient continues on Venturi mask on 35%, Objective Last 24 Hour Vital Signs Date Time Temp Pulse Resp B/P (MAP) Pulse Ox O2 Delivery O2 Flow Rate FiO2 12/25/17 12:00 97.6 91 20 148/90 (109) 97 97.6 12/25/17 12:00 2.0 12/25/17 12:00 Venturi Mask 35.0 12/25/17 12:00 91 12/25/17 11:29 97.3 12/25/17 09:23 84 149/78 12/25/17 09:23 97.3 12/25/17 09:22 84 12/25/17 08:21 Nasal Cannula 3.0 32 12/25/17 08:21 101 22 Nasal Cannula 3.0 32 12/25/17 08:21 91 Nasal Cannula 3.0 32 12/25/17 08:00 97.3 84 20 149/78 (101) 92 97.3 12/25/17 08:00 108 12/25/17 08:00 35 12/25/17 08:00 Venturi Mask 35.0 12/25/17 04:00 Venturi Mask 12/25/17 04:00 79 12/25/17 04:00 35 12/25/17 04:00 97.4 83 22 134/95 (108) 95 97.4 12/25/17 00:00 101 12/25/17 00:00 Venturi Mask 12/25/17 00:00 97.6 85 24 126/74 (91) 93 97.6 12/24/17 21:51 35 12/24/17 20:32 102 136/81 12/24/17 20:00 91 12/24/17 20:00 97.6 90 20 137/85 (102) 96 97.6 12/24/17 20:00 Venturi Mask 12/24/17 20:00 55 12/24/17 18:55 102 18 Room Air 21 12/24/17 17:44 97.7 12/24/17 16:00 109 12/24/17 16:00 Venturi Mask 55.0 12/24/17 16:00 98.4 108 19 136/81 (99) 98 98.4 12/24/17 16:00 55.0 12/24/17 15:26 110 120/75 12/24/17 15:25 110 120/75 (90) General Appearance: no apparent distress EENT: PERRL/EOMI Neck: non-tender Rhythm: NSR, Afib Cardiovascular: irregularly irregular Respiratory/Chest: chest wall non-tender Abdomen: normal bowel sounds Extremities: normal range of motion, non-tender Neurologic: echocardiographer II-XII grossly normal Intake and Output 12/24/17 12/25/17 19:00 07:00 Intake Total 610 ml 510 ml Output Total 750 ml 1300 ml Balance -140 ml -790 ml Intake Oral 500 ml 400 ml IV Total 110 ml 110 ml Output Urine Total 750 ml 1300 ml Laboratory Tests Test 12/24/17 23:15 Troponin I 0.004 ng/mL (0.000-0.056) Microbiology Date/Time Source Procedure Growth Status 12/23/17 20:45 Blood Blood Culture - Preliminary NO GROWTH AFTER 24 HOURS Resulted 12/23/17 20:35 Blood Blood Culture - Preliminary NO GROWTH AFTER 24 HOURS Resulted 12/23/17 00:22 Nasal Nares MRSA Culture - Final NO METHICILLIN RESISTANT STAPH AUREUS... Complete 12/22/17 22:55 Urine,Clean Catch Urine Culture - Final Staphylococcus Sp Coag Neg Complete 12/23/17 00:22 Rectum - Final NO CARBAPENEM-RESISTANT ENTEROBACTERI... Complete 12/23/17 00:22 Rectum VRE Culture - Final NO VANCOMYCIN RESISTANT ENTEROCOCCUS ... Complete Tim Henriquez M.D. Dec 25, 2017 13:49
[2017-12-25 16:00] VITALS: BP 137/87
--- NOTE | 2017-12-25 18:09 | Pulmonology Progress Note ---
Assessment/Plan Problems: (1) Respiratory failure with hypoxia (2) Acute exacerbation of CHF (congestive heart failure) (3) Pacemaker (4) Rapid atrial fibrillation Assessment/Plan improving continue diuresis check electrolytes respiratory treatment ID and cardio notes reviewed check echo titrate fio2 to sat of 92% Subjective ROS Limited/Unobtainable: No Constitutional: Reports: no symptoms HEENT: Repors: no symptoms Respiratory: Reports: no symptoms Allergies: Coded Allergies: MORPHINE (Verified Allergy, Severe, Hives, 10/12/12) HIVES Objective Last 24 Hour Vital Signs Date Time Temp Pulse Resp B/P (MAP) Pulse Ox O2 Delivery O2 Flow Rate FiO2 12/25/17 18:01 97.5 12/25/17 16:00 Venturi Mask 35.0 12/25/17 16:00 2.0 12/25/17 16:00 90 12/25/17 16:00 97.5 94 20 137/87 (104) 94 97.5 12/25/17 15:48 89 22 94 Room Air 3.0 32 12/25/17 15:38 81 22 94 Nasal Cannula 3.0 32 12/25/17 12:00 97.6 91 20 148/90 (109) 97 97.6 12/25/17 12:00 2.0 12/25/17 12:00 Venturi Mask 35.0 12/25/17 12:00 91 12/25/17 11:29 97.3 12/25/17 09:23 84 149/78 12/25/17 09:23 97.3 12/25/17 09:22 84 12/25/17 08:21 Nasal Cannula 3.0 32 12/25/17 08:21 101 22 Nasal Cannula 3.0 32 12/25/17 08:21 91 Nasal Cannula 3.0 32 12/25/17 08:00 97.3 84 20 149/78 (101) 92 97.3 12/25/17 08:00 108 12/25/17 08:00 35 12/25/17 08:00 Venturi Mask 35.0 12/25/17 04:00 Venturi Mask 12/25/17 04:00 79 12/25/17 04:00 35 12/25/17 04:00 97.4 83 22 134/95 (108) 95 97.4 12/25/17 00:00 101 12/25/17 00:00 Venturi Mask 12/25/17 00:00 97.6 85 24 126/74 (91) 93 97.6 12/24/17 21:51 35 12/24/17 20:32 102 136/81 12/24/17 20:00 91 12/24/17 20:00 97.6 90 20 137/85 (102) 96 97.6 12/24/17 20:00 Venturi Mask 12/24/17 20:00 55 12/24/17 18:55 102 18 Room Air 21 Intake and Output 12/24/17 12/25/17 19:00 07:00 Intake Total 610 ml 510 ml Output Total 750 ml 1300 ml Balance -140 ml -790 ml Intake Oral 500 ml 400 ml IV Total 110 ml 110 ml Output Urine Total 750 ml 1300 ml General Appearance: WD/WN HEENT: normocephalic, atraumatic Respiratory/Chest: chest wall non-tender, lungs clear Cardiovascular: normal peripheral pulses, normal rate Abdomen: normal bowel sounds, soft, non tender Genitourinary: normal external genitalia Extremities: no cyanosis Neurologic/Psychiatric: interim controller II-XII grossly normal, no motor/sensory deficits Lymphatic: no neck adenopathy Microbiology Date/Time Source Procedure Growth Status 12/23/17 20:45 Blood Blood Culture - Preliminary NO GROWTH AFTER 24 HOURS Resulted 12/23/17 20:35 Blood Blood Culture - Preliminary NO GROWTH AFTER 24 HOURS Resulted 12/23/17 00:22 Nasal Nares MRSA Culture - Final NO METHICILLIN RESISTANT STAPH AUREUS... Complete 12/22/17 22:55 Urine,Clean Catch Urine Culture - Final Staphylococcus Sp Coag Neg Complete 12/23/17 00:22 Rectum - Final NO CARBAPENEM-RESISTANT ENTEROBACTERI... Complete 12/23/17 00:22 Rectum VRE Culture - Final NO VANCOMYCIN RESISTANT ENTEROCOCCUS ... Complete Laboratory Tests 12/24/17 23:15: Troponin I 0.004 Current Medications Medications (Trade) Dose Ordered Sig/Sarmad Route PRN Reason Start Time Stop Time Status Last Admin Dose Admin Acetaminophen (Tylenol) 650 mg Q4H PRN ORAL Fever 12/22/17 23:15 01/21/18 23:14 Albuterol/ Ipratropium (Albuterol/ Ipratropium) 3 ml EVERY 4 HOURS PRN HHN Shortness of Breath 12/22/17 23:15 12/27/17 23:14 12/25/17 15:38 Alprazolam (Xanax) 1 mg TID ORAL 12/23/17 09:00 12/30/17 08:59 12/25/17 13:29 Aspirin (ASA) 81 mg DAILY ORAL 12/23/17 09:00 01/22/18 08:59 12/25/17 09:23 Atorvastatin Calcium (Lipitor) 80 mg BEDTIME ORAL 12/23/17 21:00 01/22/18 20:59 12/24/17 20:32 Cefepime HCl 1 gm/ Dextrose 110 ml @ 220 mls/hr EVERY 12 HOURS IVPB 12/23/17 21:00 12/30/17 20:59 12/25/17 09:22 Cyclobenzaprine HCl (Flexeril) 10 mg BID ORAL 12/23/17 09:00 01/22/18 08:59 12/25/17 18:01 Dextrose (Dextrose 50%) STAT PRN IV Hypoglycemia 12/22/17 23:15 01/21/18 23:14 Digoxin (Lanoxin) 0.25 mg DAILY ORAL 12/23/17 09:00 01/22/18 08:59 12/25/17 09:22 Escitalopram Oxalate (Lexapro) 10 mg DAILY ORAL 12/23/17 09:00 01/22/18 08:59 12/25/17 09:22 Gabapentin (Neurontin) 300 mg BID ORAL 12/23/17 09:00 01/22/18 08:59 12/25/17 18:01 Metoprolol Tartrate (Lopressor) 50 mg Q12HR ORAL 12/24/17 21:00 01/23/18 20:59 12/25/17 09:23 Ondansetron HCl (Zofran) 4 mg Q6H PRN IVP Nausea & Vomiting 12/22/17 23:15 01/21/18 23:14 Polyethylene Glycol (Miralax) 17 gm DAILYPRN PRN ORAL Constipation 12/22/17 23:15 01/21/18 23:14 Rivaroxaban (Xarelto) 20 mg DAILY ORAL 12/24/17 09:00 01/23/18 08:59 12/25/17 09:22 Temazepam (Restoril) 15 mg HSPRN PRN ORAL Insomnia 12/22/17 23:15 12/29/17 23:14 12/25/17 02:50 Tizanidine HCl (Zanaflex) 4 mg DAILY PRN ORAL For Pain 12/22/17 23:15 01/21/18 23:14 12/23/17 03:44 Seven Gomez MD Dec 25, 2017 18:09
[2017-12-25 20:00] VITALS: BP 145/86
[2017-12-25] MEDS: Atorvastatin 80mg tab ORAL SCH (20:55)
--- NOTE | 2017-12-25 21:49 | Infectious Diseases Prog Note ---
Assessment/Plan Assessment/Plan Abx: Ceftriaxone 12/22- Assessment: Acute respiratory failure, on bipap; improving, now on NC- likely 2ry to CHF exacerbation and posible developing PNA -CXR 12/24: Suspect developing left basilar consolidation. Cardiomegaly. 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 Will continue to follow along with you. Discussed with RN Subjective Allergies: Coded Allergies: MORPHINE (Verified Allergy, Severe, Hives, 10/12/12) HIVES Subjective afebrile no CBC Bcx NTD Objective Vital Signs Last 24 Hour Vital Signs Date Time Temp Pulse Resp B/P (MAP) Pulse Ox O2 Delivery O2 Flow Rate FiO2 12/25/17 21:07 97.5 12/25/17 21:01 97.5 12/25/17 20:55 98 145/86 12/25/17 19:59 Nasal Cannula 3.0 32 12/25/17 19:22 97.5 12/25/17 18:49 97 Nasal Cannula 3.0 32 12/25/17 18:48 81 20 Nasal Cannula 3.0 32 12/25/17 18:01 97.5 12/25/17 16:00 Venturi Mask 35.0 12/25/17 16:00 2.0 12/25/17 16:00 90 12/25/17 16:00 97.5 94 20 137/87 (104) 94 97.5 12/25/17 15:48 89 22 94 Room Air 3.0 32 12/25/17 15:38 81 22 94 Nasal Cannula 3.0 32 12/25/17 12:00 97.6 91 20 148/90 (109) 97 97.6 12/25/17 12:00 2.0 12/25/17 12:00 Venturi Mask 35.0 12/25/17 12:00 91 12/25/17 09:23 84 149/78 12/25/17 09:23 97.3 12/25/17 09:22 84 12/25/17 08:21 Nasal Cannula 3.0 32 12/25/17 08:21 101 22 Nasal Cannula 3.0 32 12/25/17 08:21 91 Nasal Cannula 3.0 32 12/25/17 08:00 97.3 84 20 149/78 (101) 92 97.3 12/25/17 08:00 108 12/25/17 08:00 35 12/25/17 08:00 Venturi Mask 35.0 12/25/17 04:00 Venturi Mask 12/25/17 04:00 79 12/25/17 04:00 35 12/25/17 04:00 97.4 83 22 134/95 (108) 95 97.4 12/25/17 00:00 101 12/25/17 00:00 Venturi Mask 12/25/17 00:00 97.6 85 24 126/74 (91) 93 97.6 12/24/17 21:51 35 Height (Feet): 5 Height (Inches): 4.00 Weight (Pounds): 169 Objective General Appearance: no apparent distress Lines, tubes and drains: peripheral HEENT: normocephalic Neck: non-tender Respiratory/Chest: accessory muscle use, rhonchi - bilaterally Cardiovascular/Chest: normal peripheral pulses, irregularly irregular, pacemaker/AICD Abdomen: normal bowel sounds Extremities: normal range of motion Neurologic: dredge mate II-XII grossly normal Microbiology Date/Time Source Procedure Growth Status 12/23/17 20:45 Blood Blood Culture - Preliminary NO GROWTH AFTER 24 HOURS Resulted 12/23/17 20:35 Blood Blood Culture - Preliminary NO GROWTH AFTER 24 HOURS Resulted 12/23/17 00:22 Nasal Nares MRSA Culture - Final NO METHICILLIN RESISTANT STAPH AUREUS... Complete 12/22/17 22:55 Urine,Clean Catch Urine Culture - Final Staphylococcus Sp Coag Neg Complete 12/23/17 00:22 Rectum - Final NO CARBAPENEM-RESISTANT ENTEROBACTERI... Complete 12/23/17 00:22 Rectum VRE Culture - Final NO VANCOMYCIN RESISTANT ENTEROCOCCUS ... Complete Laboratory Tests Test 12/24/17 23:15 Troponin I 0.004 ng/mL (0.000-0.056) Current Medications Medications (Trade) Dose Ordered Sig/Sarmad Route PRN Reason Start Time Stop Time Status Last Admin Dose Admin Acetaminophen (Tylenol) 650 mg Q4H PRN ORAL Fever 12/22/17 23:15 01/21/18 23:14 Albuterol/ Ipratropium (Albuterol/ Ipratropium) 3 ml EVERY 4 HOURS PRN HHN Shortness of Breath 12/22/17 23:15 12/27/17 23:14 12/25/17 15:38 Alprazolam (Xanax) 1 mg TID ORAL 12/23/17 09:00 12/30/17 08:59 12/25/17 13:29 Aspirin (ASA) 81 mg DAILY ORAL 12/23/17 09:00 01/22/18 08:59 12/25/17 09:23 Atorvastatin Calcium (Lipitor) 80 mg BEDTIME ORAL 12/23/17 21:00 01/22/18 20:59 12/25/17 20:55 Cefepime HCl 1 gm/ Dextrose 110 ml @ 220 mls/hr EVERY 12 HOURS IVPB 12/23/17 21:00 12/30/17 20:59 12/25/17 20:57 Cyclobenzaprine HCl (Flexeril) 10 mg BID ORAL 12/23/17 09:00 01/22/18 08:59 12/25/17 18:01 Dextrose (Dextrose 50%) STAT PRN IV Hypoglycemia 12/22/17 23:15 01/21/18 23:14 Digoxin (Lanoxin) 0.25 mg DAILY ORAL 12/23/17 09:00 01/22/18 08:59 12/25/17 09:22 Escitalopram Oxalate (Lexapro) 10 mg DAILY ORAL 12/23/17 09:00 01/22/18 08:59 12/25/17 09:22 Gabapentin (Neurontin) 300 mg BID ORAL 12/23/17 09:00 01/22/18 08:59 12/25/17 18:01 Metoprolol Tartrate (Lopressor) 50 mg Q12HR ORAL 12/24/17 21:00 01/23/18 20:59 12/25/17 20:55 Ondansetron HCl (Zofran) 4 mg Q6H PRN IVP Nausea & Vomiting 12/22/17 23:15 01/21/18 23:14 Polyethylene Glycol (Miralax) 17 gm DAILYPRN PRN ORAL Constipation 12/22/17 23:15 01/21/18 23:14 Rivaroxaban (Xarelto) 20 mg DAILY ORAL 12/24/17 09:00 01/23/18 08:59 12/25/17 09:22 Temazepam (Restoril) 15 mg HSPRN PRN ORAL Insomnia 12/22/17 23:15 12/29/17 23:14 12/25/17 02:50 Tizanidine HCl (Zanaflex) 4 mg DAILY PRN ORAL For Pain 12/22/17 23:15 01/21/18 23:14 12/25/17 21:07 Elysia Tompkins M.D. Dec 25, 2017 21:49
[2017-12-26] VITALS: BP 114/50
[2017-12-26 04:00] VITALS: BP 133/73
[2017-12-26 04:44] LABS: BASOPHILS % (AUTO) 0.9 % (0.0-2.0); EOSINOPHILS % (AUTO) 3.2 % (0.0-3.0); HEMATOCRIT 44.2 % (37.0-47.0); HEMOGLOBIN 13.7 G/DL (12.0-16.0); LYMPHOCYTES % (AUTO) 24.8 % (20.0-45.0); MEAN CORPUSCULAR VOLUME 80 FL (80-99); MONOCYTES % (AUTO) 5.1 % (1.0-10.0); PLATELET COUNT 184 K/UL (150-450); RED BLOOD COUNT 5.55 M/UL (4.20-5.40); RED CELL DISTRIBUTION WIDTH 14.7 % (11.6-14.8); WHITE BLOOD COUNT 9.5 K/UL (4.8-10.8)
[2017-12-26 05:03] LABS: ALANINE AMINOTRANSFERASE 21 U/L (12-78); ALBUMIN 2.7 G/DL (3.4-5.0); ALBUMIN/GLOBULIN RATIO 0.8 (1.0-2.7); ALKALINE PHOSPHATASE 53 U/L (46-116); ANION GAP 4 mmol/L (5-15); ASPARTATE AMINO TRANSFERASE 13 U/L (15-37); BILIRUBIN,TOTAL 0.4 MG/DL (0.2-1.0); BLOOD UREA NITROGEN 17 mg/dL (7-18); CALCIUM 8.6 MG/DL (8.5-10.1); CARBON DIOXIDE 32 MMOL/L (21-32); CHLORIDE 107 MMOL/L (98-107); CREATININE 0.7 MG/DL (0.55-1.30); POTASSIUM 3.8 MMOL/L (3.5-5.1); SODIUM 143 MMOL/L (136-145)
[2017-12-26 08:00] VITALS: BP 147/99
[2017-12-26] MEDS: ALPRAZolam 0.25mg tab ORAL SCH (08:46)
[2017-12-26] MEDS: Cefepime HCl 1 GM in D5W 110 ML IVPB SCH (08:46)
[2017-12-26] MEDS: Cyclobenzaprine 10mg Tab ORAL SCH (08:47)
[2017-12-26] MEDS: Metoprolol Tartrate 50mg tab ORAL SCH (08:48)
[2017-12-26] MEDS: Aspirin Baby 81mg ORAL SCH (08:48)
[2017-12-26] MEDS: Xarelto 10mg tab ORAL SCH (08:48)
--- NOTE | 2017-12-26 10:13 | Physician Query ---
--------- THIS DOCUMENT IS A PERMANENT PART OF THE MEDICAL RECORD --------- PLEASE COMPLETE THE DOCUMENT BEFORE SIGNING Dear Dr. Tompkins Date: 2017 [employer] Name: Lindsey giles [employer] Phone No.:[phone] Exercise your independent professional judgment when responding to query. Question asked do not imply a particular answer is desired/expected Clinical Documentation States: Consultation notes assessment includes Leukocytosis ? 2ry to UTI r/o PNA Clinical Findings Show: WBC: 16.5, HR: 125, RR: 23 Antibiotics: Cefepime Please clarify the diagnosis for above findings: [ ] Sepsis [ ] Sepsis with organ dysfunction [ ] SIRS [ ] SIRS with organ dysfunction [ ] Septic Shock [ ] Other: [ ] Clinically Undeterminable Was SEPSIS present on admission? [] Yes [] No [] Clinically undeterminable Criteria for Sepsis* Sepsis: Presence of 1 or more criteria in this row. Positive cultures (but not required) or WBCs present in otherwise sterile fluid: blood, urine, sputum, CSF , etc.? Prescribed anti-infective therapy: antibiotic, antifungal, and other? Documentation of pneumonia: positive x-ray or clinical presentation? Perforated viscus: perforation of a hollow organ, e.g. bowel? SIRS: Presence of > 2 criteria in this row Temperature: > 100.4 F. or < 96.8 F. Heart rate: > 90 bpm Respiratory rate: > 20/min. WBC count: > 12,000/mm2 < 4,000/mm2 > 10% bands MTDD
--- NOTE | 2017-12-26 11:36 | Pulmonology Progress Note ---
Assessment/Plan Problems: (1) Respiratory failure with hypoxia (2) Acute exacerbation of CHF (congestive heart failure) (3) Pacemaker (4) Rapid atrial fibrillation Assessment/Plan NO SOB, improving continue diuresis check electrolytes respiratory treatment all notes reviewed check echo titrate fio2 to sat of 92% Subjective ROS Limited/Unobtainable: No Constitutional: Reports: no symptoms HEENT: Repors: no symptoms Respiratory: Reports: no symptoms Allergies: Coded Allergies: MORPHINE (Verified Allergy, Severe, Hives, 10/12/12) HIVES Objective Last 24 Hour Vital Signs Date Time Temp Pulse Resp B/P (MAP) Pulse Ox O2 Delivery O2 Flow Rate FiO2 12/26/17 10:10 97.0 12/26/17 08:48 79 147/99 12/26/17 08:47 97.0 12/26/17 08:47 79 12/26/17 08:00 97.0 79 22 147/99 (115) 96 97.0 12/26/17 08:00 4.0 12/26/17 08:00 Nasal Cannula 4.0 12/26/17 08:00 82 12/26/17 06:30 85 20 Nasal Cannula 3.0 32 12/26/17 06:30 Nasal Cannula 3.0 32 12/26/17 06:30 98 Nasal Cannula 3.0 32 12/26/17 04:00 4.0 12/26/17 04:00 Nasal Cannula 4.0 12/26/17 04:00 97.6 64 20 133/73 (93) 94 97.6 12/26/17 04:00 87 12/26/17 00:00 97.3 71 24 114/50 (71) 96 97.3 12/26/17 00:00 Nasal Cannula 4.0 12/25/17 22:06 97.5 12/25/17 21:07 97.5 12/25/17 21:01 97.5 12/25/17 20:55 98 145/86 12/25/17 20:00 92 12/25/17 20:00 4.0 12/25/17 20:00 97.5 98 24 145/86 (105) 97 97.5 12/25/17 20:00 Nasal Cannula 4.0 12/25/17 19:59 Nasal Cannula 3.0 32 12/25/17 18:49 97 Nasal Cannula 3.0 32 12/25/17 18:48 81 20 Nasal Cannula 3.0 32 12/25/17 18:01 97.5 12/25/17 16:00 Nasal Cannula 2.0 12/25/17 16:00 2.0 12/25/17 16:00 90 12/25/17 16:00 97.5 94 20 137/87 (104) 94 97.5 12/25/17 15:48 89 22 94 Room Air 3.0 32 12/25/17 15:38 81 22 94 Nasal Cannula 3.0 32 12/25/17 12:00 97.6 91 20 148/90 (109) 97 97.6 12/25/17 12:00 2.0 12/25/17 12:00 Nasal Cannula 2.0 12/25/17 12:00 91 Intake and Output 12/25/17 12/26/17 19:00 07:00 Intake Total 610 ml 110 ml Output Total 1175 ml 1350 ml Balance -565 ml -1240 ml Intake Oral 500 ml IV Total 110 ml 110 ml Output Urine Total 1175 ml 1350 ml General Appearance: WD/WN HEENT: normocephalic, atraumatic Respiratory/Chest: chest wall non-tender, lungs clear Breasts: no masses Cardiovascular: normal peripheral pulses Abdomen: normal bowel sounds, soft, non tender Extremities: no cyanosis 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 Microbiology Date/Time Source Procedure Growth Status 12/23/17 20:45 Blood Blood Culture - Preliminary NO GROWTH AFTER 48 HOURS Resulted 12/23/17 20:35 Blood Blood Culture - Preliminary NO GROWTH AFTER 48 HOURS Resulted Laboratory Tests 12/26/17 03:30: White Blood Count 9.5, Red Blood Count 5.55H, Hemoglobin 13.7, Hematocrit 44.2, Mean Corpuscular Volume 80, Mean Corpuscular Hemoglobin 24.7L, Mean Corpuscular Hemoglobin Concent 31.1L, Red Cell Distribution Width 14.7, Platelet Count 184, Mean Platelet Volume 8.9, Neutrophils (%) (Auto) 66.0, Lymphocytes (%) (Auto) 24.8, Monocytes (%) (Auto) 5.1, Eosinophils (%) (Auto) 3.2H, Basophils (%) (Auto ) 0.9, Sodium Level 143, Potassium Level 3.8, Chloride Level 107, Carbon Dioxide Level 32, Anion Gap 4L, Blood Urea Nitrogen 17, Creatinine 0.7, Estimat Glomerular Filtration Rate , Glucose Level 89, Calcium Level 8.6, Total Bilirubin 0.4, Aspartate Amino Transf (AST/SGOT) 13L, Alanine Aminotransferase ( ALT/SGPT) 21, Alkaline Phosphatase 53, Total Protein 6.2L, Albumin 2.7L, Globulin 3.5, Albumin/Globulin Ratio 0.8L Current Medications Medications (Trade) Dose Ordered Sig/Sarmad Route PRN Reason Start Time Stop Time Status Last Admin Dose Admin Acetaminophen (Tylenol) 650 mg Q4H PRN ORAL Fever 12/22/17 23:15 01/21/18 23:14 Albuterol/ Ipratropium (Albuterol/ Ipratropium) 3 ml EVERY 4 HOURS PRN HHN Shortness of Breath 12/22/17 23:15 12/27/17 23:14 12/25/17 15:38 Alprazolam (Xanax) 0.5 mg TID ORAL 12/26/17 13:00 12/30/17 08:59 UNV Aspirin (ASA) 81 mg DAILY ORAL 12/23/17 09:00 01/22/18 08:59 12/26/17 08:48 Atorvastatin Calcium (Lipitor) 80 mg BEDTIME ORAL 12/23/17 21:00 01/22/18 20:59 12/25/17 20:55 Cefepime HCl 1 gm/ Dextrose 110 ml @ 220 mls/hr EVERY 12 HOURS IVPB 12/23/17 21:00 12/30/17 20:59 12/26/17 08:46 Dextrose (Dextrose 50%) STAT PRN IV Hypoglycemia 12/22/17 23:15 01/21/18 23:14 Digoxin (Lanoxin) 0.25 mg DAILY ORAL 12/23/17 09:00 01/22/18 08:59 12/26/17 08:47 Escitalopram Oxalate (Lexapro) 10 mg DAILY ORAL 12/23/17 09:00 01/22/18 08:59 12/26/17 08:48 Gabapentin (Neurontin) 300 mg BID ORAL 12/23/17 09:00 01/22/18 08:59 12/26/17 08:47 Metoprolol Tartrate (Lopressor) 50 mg Q12HR ORAL 12/24/17 21:00 01/23/18 20:59 12/26/17 08:48 Ondansetron HCl (Zofran) 4 mg Q6H PRN IVP Nausea & Vomiting 12/22/17 23:15 01/21/18 23:14 Polyethylene Glycol (Miralax) 17 gm DAILYPRN PRN ORAL Constipation 12/22/17 23:15 01/21/18 23:14 12/26/17 08:46 Rivaroxaban (Xarelto) 20 mg DAILY ORAL 12/24/17 09:00 01/23/18 08:59 12/26/17 08:48 Temazepam (Restoril) 15 mg HSPRN PRN ORAL Insomnia 12/22/17 23:15 12/29/17 23:14 12/25/17 02:50 Tizanidine HCl (Zanaflex) 4 mg DAILY PRN ORAL For Pain 12/22/17 23:15 01/21/18 23:14 12/25/17 21:07 Seven Gomez MD Dec 26, 2017 11:36
--- NOTE | 2017-12-26 11:51 | Cardiology Progress Note ---
Assessment/Plan Status: stable Assessment/Plan Assessment/Plan Problem List: (1) Respiratory failure with hypoxia (2) Acute exacerbation of CHF (congestive heart failure) preserved ejection fraction (3) Pacemaker (4) Rapid atrial fibrillation (5) Pleural effusion Rate control AFIB, no indication for cardioversion - heart rates 90s now, continue current Rx: metoprolol/digoxin at current doses Anticoagulation with xarelto daily Pacemaker interrogation BiPAP prn for SOB CXR reviewed Echo reviewed- HFpEF with elevated filling pressures and diastolic dysfunction Continue lipitor Troponin negative - no evidence of ACS Continue lasix for elevated filling pressures and high right atrial pressures, monitor renal function and daily weights Salt restriction Dispo planning - ok to discharge home with outpatient follow up Subjective Cardiovascular: Reports: no symptoms Respiratory: Reports: no symptoms Gastrointestinal/Abdominal: Reports: no symptoms Genitourinary: Reports: no symptoms Subjective Heart rate controlled on metoprolol and digoxin Respiratory status improved Objective Last 24 Hour Vital Signs Date Time Temp Pulse Resp B/P (MAP) Pulse Ox O2 Delivery O2 Flow Rate FiO2 12/26/17 10:10 97.0 12/26/17 08:48 79 147/99 12/26/17 08:47 97.0 12/26/17 08:47 79 12/26/17 08:00 97.0 79 22 147/99 (115) 96 97.0 12/26/17 08:00 4.0 12/26/17 08:00 Nasal Cannula 4.0 12/26/17 08:00 82 12/26/17 06:30 85 20 Nasal Cannula 3.0 32 12/26/17 06:30 Nasal Cannula 3.0 32 12/26/17 06:30 98 Nasal Cannula 3.0 32 12/26/17 04:00 4.0 12/26/17 04:00 Nasal Cannula 4.0 12/26/17 04:00 97.6 64 20 133/73 (93) 94 97.6 12/26/17 04:00 87 12/26/17 00:00 97.3 71 24 114/50 (71) 96 97.3 12/26/17 00:00 Nasal Cannula 4.0 12/25/17 22:06 97.5 12/25/17 21:07 97.5 12/25/17 21:01 97.5 12/25/17 20:55 98 145/86 12/25/17 20:00 92 12/25/17 20:00 4.0 12/25/17 20:00 97.5 98 24 145/86 (105) 97 97.5 12/25/17 20:00 Nasal Cannula 4.0 12/25/17 19:59 Nasal Cannula 3.0 32 12/25/17 18:49 97 Nasal Cannula 3.0 32 12/25/17 18:48 81 20 Nasal Cannula 3.0 32 12/25/17 18:01 97.5 12/25/17 16:00 Nasal Cannula 2.0 12/25/17 16:00 2.0 12/25/17 16:00 90 12/25/17 16:00 97.5 94 20 137/87 (104) 94 97.5 12/25/17 15:48 89 22 94 Room Air 3.0 32 12/25/17 15:38 81 22 94 Nasal Cannula 3.0 32 12/25/17 12:00 97.6 91 20 148/90 (109) 97 97.6 12/25/17 12:00 2.0 12/25/17 12:00 Nasal Cannula 2.0 12/25/17 12:00 91 General Appearance: no apparent distress EENT: PERRL/EOMI Neck: non-tender, normal alignment Rhythm: NSR Cardiovascular: normal peripheral pulses Respiratory/Chest: chest wall non-tender Abdomen: normal bowel sounds Extremities: normal range of motion 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 Intake and Output 12/25/17 12/26/17 19:00 07:00 Intake Total 610 ml 110 ml Output Total 1175 ml 1350 ml Balance -565 ml -1240 ml Intake Oral 500 ml IV Total 110 ml 110 ml Output Urine Total 1175 ml 1350 ml Laboratory Tests Test 12/26/17 03:30 White Blood Count 9.5 K/UL (4.8-10.8) Red Blood Count 5.55 M/UL (4.20-5.40) H Hemoglobin 13.7 G/DL (12.0-16.0) Hematocrit 44.2 % (37.0-47.0) Mean Corpuscular Volume 80 FL (80-99) Mean Corpuscular Hemoglobin 24.7 PG (27.0-31.0) L Mean Corpuscular Hemoglobin Concent 31.1 G/DL (32.0-36.0) L Red Cell Distribution Width 14.7 % (11.6-14.8) Platelet Count 184 K/UL (150-450) Mean Platelet Volume 8.9 FL (6.5-10.1) Neutrophils (%) (Auto) 66.0 % (45.0-75.0) Lymphocytes (%) (Auto) 24.8 % (20.0-45.0) Monocytes (%) (Auto) 5.1 % (1.0-10.0) Eosinophils (%) (Auto) 3.2 % (0.0-3.0) H Basophils (%) (Auto) 0.9 % (0.0-2.0) Sodium Level 143 MMOL/L (136-145) Potassium Level 3.8 MMOL/L (3.5-5.1) Chloride Level 107 MMOL/L (98-107) Carbon Dioxide Level 32 MMOL/L (21-32) Anion Gap 4 mmol/L (5-15) L Blood Urea Nitrogen 17 mg/dL (7-18) Creatinine 0.7 MG/DL (0.55-1.30) Estimat Glomerular Filtration Rate mL/min (>60) Glucose Level 89 MG/DL (74-106) Calcium Level 8.6 MG/DL (8.5-10.1) Total Bilirubin 0.4 MG/DL (0.2-1.0) Aspartate Amino Transf (AST/SGOT) 13 U/L (15-37) L Alanine Aminotransferase (ALT/SGPT) 21 U/L (12-78) Alkaline Phosphatase 53 U/L (46-116) Total Protein 6.2 G/DL (6.4-8.2) L Albumin 2.7 G/DL (3.4-5.0) L Globulin 3.5 g/dL Albumin/Globulin Ratio 0.8 (1.0-2.7) L Microbiology Date/Time Source Procedure Growth Status 12/23/17 20:45 Blood Blood Culture - Preliminary NO GROWTH AFTER 48 HOURS Resulted 12/23/17 20:35 Blood Blood Culture - Preliminary NO GROWTH AFTER 48 HOURS Resulted Tim Henriquez M.D. Dec 26, 2017 11:51
[2017-12-26 12:00] VITALS: BP 132/54
--- NOTE | 2017-12-26 12:28 | Infectious Diseases Prog Note ---
Assessment/Plan Assessment/Plan Abx: Ceftriaxone 12/22- Assessment: Acute respiratory failure, on bipap; improving, now on NC- likely 2ry to CHF exacerbation and posible developing PNA -CXR 12/24: Suspect developing left basilar consolidation. Cardiomegaly. -CXR: no acute disease Leukocytosis , resolved )?2ry to UTI however grew CONS (not a urinary pathogen) and now possibly developing PNA- -u/a wbc tntc, nit +, leuk +3; ucx >100K CONS (colonizer) -afebrile HTN CAD CHF AFib on anticoagulation s/p PPM 08/2016 Dm2 COPD Plan: -Continue Cefepime abx d#10/22-7 for possible PNA pending sputum cx -12/23 SP Ceftriaxone #2 -f/u Bcx,sp cx -f/u cx -Monitor CBC/BMP, temperatures -f/u CXR -aspiration precautions Thank you for this consultation. Will continue to follow along with you. Discussed with RN Subjective Allergies: Coded Allergies: MORPHINE (Verified Allergy, Severe, Hives, 10/12/12) HIVES Subjective afebrile leukocytosis resolved Sp cx p repeat CXR p Bcx NTD Objective Vital Signs Last 24 Hour Vital Signs Date Time Temp Pulse Resp B/P (MAP) Pulse Ox O2 Delivery O2 Flow Rate FiO2 12/26/17 10:10 97.0 12/26/17 08:48 79 147/99 12/26/17 08:47 97.0 12/26/17 08:47 79 12/26/17 08:00 97.0 79 22 147/99 (115) 96 97.0 12/26/17 08:00 4.0 12/26/17 08:00 Nasal Cannula 4.0 12/26/17 08:00 82 12/26/17 06:30 85 20 Nasal Cannula 3.0 32 12/26/17 06:30 Nasal Cannula 3.0 32 12/26/17 06:30 98 Nasal Cannula 3.0 32 12/26/17 04:00 4.0 12/26/17 04:00 Nasal Cannula 4.0 12/26/17 04:00 97.6 64 20 133/73 (93) 94 97.6 12/26/17 04:00 87 12/26/17 00:00 97.3 71 24 114/50 (71) 96 97.3 7/9/18 00:00 Nasal Cannula 4.0 12/25/17 22:06 97.5 12/25/17 21:07 97.5 12/25/17 21:01 97.5 12/25/17 20:55 98 145/86 12/25/17 20:00 92 12/25/17 20:00 4.0 12/25/17 20:00 97.5 98 24 145/86 (105) 97 97.5 12/25/17 20:00 Nasal Cannula 4.0 12/25/17 19:59 Nasal Cannula 3.0 32 12/25/17 18:49 97 Nasal Cannula 3.0 32 12/25/17 18:48 81 20 Nasal Cannula 3.0 32 12/25/17 18:01 97.5 12/25/17 16:00 Nasal Cannula 2.0 12/25/17 16:00 2.0 12/25/17 16:00 90 12/25/17 16:00 97.5 94 20 137/87 (104) 94 97.5 12/25/17 15:48 89 22 94 Room Air 3.0 32 12/25/17 15:38 81 22 94 Nasal Cannula 3.0 32 Height (Feet): 5 Height (Inches): 4.00 Weight (Pounds): 165 Objective General Appearance: no apparent distress Lines, tubes and drains: peripheral HEENT: normocephalic Neck: non-tender Respiratory/Chest: accessory muscle use, rhonchi - bilaterally Cardiovascular/Chest: normal peripheral pulses, irregularly irregular, pacemaker/AICD Abdomen: normal bowel sounds Extremities: normal range of motion 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 Microbiology Date/Time Source Procedure Growth Status 12/23/17 20:45 Blood Blood Culture - Preliminary NO GROWTH AFTER 48 HOURS Resulted 12/23/17 20:35 Blood Blood Culture - Preliminary NO GROWTH AFTER 48 HOURS Resulted Laboratory Tests Test 12/26/17 03:30 White Blood Count 9.5 K/UL (4.8-10.8) Red Blood Count 5.55 M/UL (4.20-5.40) H Hemoglobin 13.7 G/DL (12.0-16.0) Hematocrit 44.2 % (37.0-47.0) Mean Corpuscular Volume 80 FL (80-99) Mean Corpuscular Hemoglobin 24.7 PG (27.0-31.0) L Mean Corpuscular Hemoglobin Concent 31.1 G/DL (32.0-36.0) L Red Cell Distribution Width 14.7 % (11.6-14.8) Platelet Count 184 K/UL (150-450) Mean Platelet Volume 8.9 FL (6.5-10.1) Neutrophils (%) (Auto) 66.0 % (45.0-75.0) Lymphocytes (%) (Auto) 24.8 % (20.0-45.0) Monocytes (%) (Auto) 5.1 % (1.0-10.0) Eosinophils (%) (Auto) 3.2 % (0.0-3.0) H Basophils (%) (Auto) 0.9 % (0.0-2.0) Sodium Level 143 MMOL/L (136-145) Potassium Level 3.8 MMOL/L (3.5-5.1) Chloride Level 107 MMOL/L (98-107) Carbon Dioxide Level 32 MMOL/L (21-32) Anion Gap 4 mmol/L (5-15) L Blood Urea Nitrogen 17 mg/dL (7-18) Creatinine 0.7 MG/DL (0.55-1.30) Estimat Glomerular Filtration Rate mL/min (>60) Glucose Level 89 MG/DL (74-106) Calcium Level 8.6 MG/DL (8.5-10.1) Total Bilirubin 0.4 MG/DL (0.2-1.0) Aspartate Amino Transf (AST/SGOT) 13 U/L (15-37) L Alanine Aminotransferase (ALT/SGPT) 21 U/L (12-78) Alkaline Phosphatase 53 U/L (46-116) Total Protein 6.2 G/DL (6.4-8.2) L Albumin 2.7 G/DL (3.4-5.0) L Globulin 3.5 g/dL Albumin/Globulin Ratio 0.8 (1.0-2.7) L Current Medications Medications (Trade) Dose Ordered Sig/Sarmad Route PRN Reason Start Time Stop Time Status Last Admin Dose Admin Acetaminophen (Tylenol) 650 mg Q4H PRN ORAL Fever 12/22/17 23:15 01/21/18 23:14 Albuterol/ Ipratropium (Albuterol/ Ipratropium) 3 ml EVERY 4 HOURS PRN HHN Shortness of Breath 12/22/17 23:15 12/27/17 23:14 12/25/17 15:38 Alprazolam (Xanax) 0.5 mg TID ORAL 12/26/17 13:00 12/30/17 08:59 Aspirin (ASA) 81 mg DAILY ORAL 12/23/17 09:00 01/22/18 08:59 12/26/17 08:48 Atorvastatin Calcium (Lipitor) 80 mg BEDTIME ORAL 12/23/17 21:00 01/22/18 20:59 12/25/17 20:55 Cefepime HCl 1 gm/ Dextrose 110 ml @ 220 mls/hr EVERY 12 HOURS IVPB 12/23/17 21:00 12/30/17 20:59 12/26/17 08:46 Dextrose (Dextrose 50%) STAT PRN IV Hypoglycemia 12/22/17 23:15 01/21/18 23:14 Digoxin (Lanoxin) 0.25 mg DAILY ORAL 12/23/17 09:00 01/22/18 08:59 12/26/17 08:47 Escitalopram Oxalate (Lexapro) 10 mg DAILY ORAL 12/23/17 09:00 01/22/18 08:59 12/26/17 08:48 Gabapentin (Neurontin) 300 mg BID ORAL 12/23/17 09:00 01/22/18 08:59 12/26/17 08:47 Metoprolol Tartrate (Lopressor) 50 mg Q12HR ORAL 12/24/17 21:00 01/23/18 20:59 12/26/17 08:48 Ondansetron HCl (Zofran) 4 mg Q6H PRN IVP Nausea & Vomiting 12/22/17 23:15 01/21/18 23:14 Polyethylene Glycol (Miralax) 17 gm DAILYPRN PRN ORAL Constipation 12/22/17 23:15 01/21/18 23:14 12/26/17 08:46 Rivaroxaban (Xarelto) 20 mg DAILY ORAL 12/24/17 09:00 01/23/18 08:59 12/26/17 08:48 Temazepam (Restoril) 15 mg HSPRN PRN ORAL Insomnia 12/22/17 23:15 12/29/17 23:14 12/25/17 02:50 Tizanidine HCl (Zanaflex) 4 mg DAILY PRN ORAL For Pain 12/22/17 23:15 01/21/18 23:14 12/25/17 21:07 Elysia Tompkins M.D. Dec 26, 2017 12:28
--- NOTE | 2017-12-26 12:39 | Diagnostic Imaging Report ---
Indication: Dyspnea Comparison: 12/24/2017 A single view chest radiograph was obtained. Findings: No definite infiltrate or pulmonary vascular congestion identified. Pacemaker again noted. The heart is enlarged. The aorta is mildly enlarged consistent with atherosclerotic vascular disease. The bones are osteopenic. Impression: No acute disease
[2017-12-26] MEDS ORDERED: ALPRAZolam 0.25mg tab ORAL SCH (13:00)
[2017-12-26 16:00] VITALS: BP 152/88
[2017-12-26] MEDS ORDERED: NS 275ml ONE (16:34)
--- NOTE | 2017-12-28 11:20 | Discharge Summary ---
Discharge Summary Discharge Summary _ DATE OF ADMISSION: 12/22/2017 DATE OF DISCHARGE: 12/26/2017 REASON FOR ADMISSION: 77 years old female with past medical history of hypertension, congestive heart failure, COPD, coronary artery disease, atrial fibrillation, on chronic anticoagulation, presented with shortness of breath for 2 weeks. Shortness of breath was gradually getting worse. Patient was found by paramedics to be hypoxic , she was subsequently placed on supplemental at oxygen and given nitroglycerin with some improvement. Upon arrival to emergency room patient was on nonrebreathing mask with pulse oximetry 98% . However ABG revealed acute respiratory acidosis with hypoxemia and hypercapnia. Patient was subsequently placed on BiPAP. Troponin was negative. EKG revealed atrial fibrillation with rapid ventricular response. WBC 16.5. Tachycardia , tachypnea. Urinalysis with evidence of probable UTI. CXR with no acute cardiopulmonary pathology. Stable hemoglobin and hematocrit. Stable renal parameters and electrolytes. Pro BNP 8124. Patient admitted with diagnosis of respiratory failure with hypoxia ,acute CHF exacerbation ,atrial fibrillation with rapid ventricular response ,pacemaker, probable sepsis, probable UTI . CONSULTANTS: primer supervisor dr. Henriquez psychiatrist Dr. Taylor [facility] COURSE: Patient admitted to [facility]. Cardiology consult was requested. Patient started on diuresis. Cardiorenal parameters and volumes were closely monitored. Echocardiogram revealed preserved ejection fraction of 60-65%. and elevated filling pressures, suggestive of diastolic dysfunction. Rate was controlled with beta mary and digoxin, after initial dose of IV Cardizem. Anticoagulation provided with Xarelto. Heart rate stabilized. Pacemaker interrogation as per primer supervisor. Aspirin and statin continued. Patient was able to be weaned from BiPAP as her clinical condition improved. Pulmonary toilet with bronchodilator provided as needed. Patient was counseled on salt restricted cardiac diet. Venous duplex bilateral lower extremity was negative. Infectious disease specialist closely followed. Urine culture revealed Staph coagulase negative, not the urine pathogen as per infectious disease conclusion. Likely contaminant . Follow-up chest x-ray revealed possible left base consolidation. Patient was treated with empiric antibiotic for 5 days. Last chest x-ray revealed no acute disease. Leukocytosis resolved, afebrile. Antibiotic stopped. s/p 5 days treatment for possible pneumonia empirically. Psychiatry seen and evaluated patient and optimized psychiatric medication regimen. Patient clinically improved and was stable for discharge home with outpatient follow-up with the primary care provide FINAL DIAGNOSES: Respiratory failure with hypoxemia Acute diastolic congestive heart failure exacerbation Atrial fibrillation with rapid ventricular response Pacemaker Sepsis Possible pneumonia DISCHARGE MEDICATIONS: See Medication Reconciliation list. DISCHARGE INSTRUCTIONS: Patient was discharged home. Follow up with primary care provider in one week. I have been assigned to dictate discharge summary for this account. I was not involved in the patient's management. Viviane Peguero NP Dec 28, 2017 11:20
== END 2017-12-26 16:35 | disposition home or self-care (01) | DRG 291 ==
LOC: EDBD 21:41 → EMR 21:53 → EDBEDREQ 22:21 → 2W 22:46 → EDBEDREQ 23:04
DX: I11.0 Hypertensive heart disease with heart failure (principal); J96.01 Acute respiratory failure with hypoxia; J18.9 Pneumonia, unspecified organism; J44.0 Chronic obstructive pulmonary disease with (acute) lower respiratory infection; J90 Pleural effusion, not elsewhere classified; I50.33 Acute on chronic diastolic (congestive) heart failure; Z95.0 Presence of cardiac pacemaker; I25.10 Atherosclerotic heart disease of native coronary artery without angina pectoris; I48.91 Unspecified atrial fibrillation; Z79.01 Long term (current) use of anticoagulants; E11.9 Type 2 diabetes mellitus without complications; Z88.6 Allergy status to analgesic agent
CPT/HCPCS: 36415; 36600; 71045; 80048; 80053; 80069; 80162; 81003; 82550; 82553; 82803; 83880; 84484; 85007; 85025; 85610; 85730; 87040; 87081; 87086; 93005; 93306; 93970; 94640; 94660; 94664; 94760; 99291; J7620